=== PATIENT | female | born 1945 | race Caucasian/White ===

== ENCOUNTER → 2017-11-06 09:17 | Outpatient (CLI) | payer MEDICARE, SELFPAY ==
--- NOTE | 2017-11-06 09:17 | DT_ITS ---
This patient was seen during an EMR downtime November 03, 2017 - November 10, 2017. This patient may have a combination of paper and electronic documentation or all paper documentation. All documentation is viewable within the e-chart portion of [facility] for each patient visit.
[2017-11-11 02:49] LABS: Anion Gap 9 (5-15); BUN 13 mg/dL (7-18); BUN/Creat Ratio 12.7 RATIO (10-20); Calcium,Total 9.5 mg/dL (8.5-10.1); Chloride 105 mmol/L (98-107); Creatinine, Serum 1.02 mg/dL (0.55-1.02); EST Glomerular Filtration Rate 56 mL/min (>60); Est Glom Filt Rate - Afr Amer 68 mL/min (>60); Glucose 96 mg/dL (74-106); Magnesium 2.1 mg/dL (1.6-2.6); Sodium Level 141 mmol/L (136-145); Thyroid Stim Hormone (TSH) 2.64 uIU/mL (0.358-3.74); Uric Acid 5.7 mg/dL (2.6-6.0)
[2017-11-11 03:16] LABS: Hematocrit 43.8 % (37-47); Mean Corpuscular Volume 90.7 fL (81-99); Mean Platelet Vol. 9.7 fl (6.2-12.0); POSITIVE COUNT NO; POSITIVE DIFFERENTIAL NO; POSITIVE MORPHOLOGY NO; Platelet Count 300 K/mm3 (150-450); RBC Distribution Width SD 49.1 fl (35.1-43.9); Red Blood Count 4.83 M/mm3 (4.2-5.4); White Blood Count 5.9 K/mm3 (4.4-11.0)
[2017-11-11 03:17] LABS: Absolute Lymphocyte Count 1.87 X10^3/ul (0.83-4.51); Absolute Neutrophil Count 3.3 X10^3/uL (2.0-7.7); Basophil# 0.03 X10^3/uL; Basophil% 0.5 % (0-1); Eosinophil# 0.11 X10^3/uL; Eosinophils% 1.9 % (0-5); Erythrocyte Sedimentation Rate 26 mm/hr (0-30); Lymphocyte # 1.87 X10^3/ul (4.0); Lymphocyte % 31.7 % (19-41); Monocyte# 0.58 X10^3/uL; Monocyte% 9.8 % (0-10); Neutrophil # 3.29 X10^3/uL (2.7-7.7); Neutrophil % 55.9 % (47-70)
[2017-11-11 16:20] LABS: PTHIN 27.1 pg/mL (18.4-80.1); Vitamin D,25 Hydroxy 28.2 ng/mL (29.95-100.01)
== END ==
PROVIDERS: Family Provider Family Medicine; PCP Family Medicine; Visit Provider Family Medicine
DX: M11.269 Other chondrocalcinosis, unspecified knee (principal)
CPT/HCPCS: 36415; 80048; 82306; 83735; 83970; 84443; 84550; 85025; 85652

== ENCOUNTER → 2018-10-28 | Outpatient (CLI) | payer MEDICARE, SELFPAY ==
--- NOTE | 2018-10-28 09:26 | BD_ITS ---
STUDY: DUAL ENERGY X-RAY ABSORPTIOMETRY / DXA REASON FOR EXAM: Female, 73 years old. The patient is postmenopausal. Loss of height. TECHNIQUE: Bone Mineral Density (BMD) measurements of lumbar spine and bilateral hips were obtained. COMPARISON: None. FINDINGS: Lumbar Spine (L1-L4): g/cm2 (1.420) / T-score (1.8) / Z-score (3.6) Findings are suggestive of normal bone density with a low fracture risk. Left Femur Total: g/cm2 (1.131) / T-score (1.0) / Z-score (2.7) Left Femoral Neck: g/cm2 (1.024) / T-score (-0.1) / Z-score (1.8) Right Femur Total: g/cm2 (1.066) / T-score (0.5) / Z-score (2.2) Right Femoral Neck: g/cm2 (0.943) / T-score (-0.7) / Z-score (1.2) BD/Dexa Bone Density Study IMPRESSION: The patient is considered normal as outlined below according to World Eulalio Organization (WHO) criteria with a low fracture risk. Reference Information: The T-score is the number of standard deviations above or below the standard which is normal for young adults at their peak bone mineral density. The World Health Organization (WHO) interprets the T-scores as follows: Above -1 Normal bone density Between -1 and -2.5 Osteopenia Equal to / or below -2.5 Osteoporosis As a practical clinical guideline, osteopenia may be graded as follows: Mild -1 through -1.5 Moderate -1.6 through -2.0 Severe -2.1 through -2.4 The Z-score is the number of standard deviations above or below age-matched controls. A Z-score of less than -1.5 would be considered abnormal. References: 1. NIH Osteoporosis and Related Bone Diseases http://www.osteo.org 2. International Society for Clinical Densitometry http://www.iscd.org 3. National Osteoporosis Foundation http://www.nof.org Electronically Signed: Travis Boyle, at 10:24 EDT , Service support ,
--- NOTE | 2018-10-28 09:26 | BI_ITS ---
MAMMOGRAPHY - BILATERAL SCREENING REASON FOR EXAM: Female, 73 years old. Routine annual screening examination. PERTINENT HISTORY: Non-contributory. TECHNIQUE: Digital bilateral breast torie (3D mammographic acquisition) in the CC and MLO projections. 2-D mediolateral oblique (MLO) and craniocaudad (CC) views of both breasts were obtained. CAD: Full Field Digital Mammography with Computer Added Detection was performed. COMPARISON: Comparison is made with prior study dated June 19, 2017 and January 05, 2016. FINDINGS: Breast Composition: The breasts are almost entirely fatty. There are no dominant masses or suspicious calcifications. Stable small benign-appearing bilateral axillary lymph nodes. No other significant abnormalities are identified. There has been no significant change since the prior study. BI/SCREENING MAMM (CAD), BILAT IMPRESSION: Stable bilateral screening mammogram. Yearly follow-up mammogram recommended. (A) ASSESSMENT CATEGORY: BIRADS Category 2: Benign. A letter regarding these results will be sent to the patient by the facility within 30 days. Approximately 10% of breast cancers are not detected by mammography. A normal mammogram should not delay biopsy of a clinically suspicious abnormality. [id number] Electronically Signed: Travis Boyle, at 12:44 EDT , Service support ,
== END | disposition home or self-care (01) ==
PROVIDERS: Family Provider Family Medicine; PCP Family Medicine; Referring Provider Nurse Practitioner Adult Health; Visit Provider Nurse Practitioner Adult Health
DX: Z78.0 Asymptomatic menopausal state (principal); Z12.31 Encounter for screening mammogram for malignant neoplasm of breast
CPT/HCPCS: 77063; 77067; 77080

== ENCOUNTER → 2018-11-06 | Outpatient (CLI) | payer MEDICARE, SELFPAY ==
[2018-11-06 10:56] LABS: Anion Gap 3 (5-15); BUN 15 mg/dL (7-18); BUN/Creat Ratio 15.2 RATIO (10-20); Calcium,Total 9.2 mg/dL (8.5-10.1); Chloride 107 mmol/L (98-107); Cholesterol 222 mg/dL (200); Creatinine, Serum 0.99 mg/dL (0.55-1.02); EST Glomerular Filtration Rate 58 mL/min (>60); Est Glom Filt Rate - Afr Amer 70 mL/min (>60); Glucose 108 mg/dL (74-106); High Density Lipoprotein 74 mg/dL; Potassium 4.8 mmol/L (3.5-5.1); Sodium Level 139 mmol/L (136-145); Thyroid Stim Hormone (TSH) 1.61 uIU/mL (0.358-3.74); Triglycerides 106 mg/dL; Very Low Density Lipoprotein 21 mg/dL (5-40)
[2018-11-06 11:03] LABS: Vitamin D,25 Hydroxy 73.1 ng/mL (29.95-100.01)
== END | disposition home or self-care (01) ==
LOC: MFPLAB 09:12
PROVIDERS: Nurse Practitioner Adult Health; Family Provider Family Medicine; PCP Family Medicine; Referring Provider Family Medicine; Visit Provider Family Medicine
DX: E03.9 Hypothyroidism, unspecified (principal); E55.9 Vitamin D deficiency, unspecified; Z13.1 Encounter for screening for diabetes mellitus; Z13.220 Encounter for screening for lipoid disorders
CPT/HCPCS: 36415; 80048; 80061; 82306; 84443

== ENCOUNTER → 2019-07-14 | Outpatient (CLI) | payer MEDICARE, SELFPAY ==
--- NOTE | 2019-07-14 12:06 | RAD_ITS ---
STUDY: X-RAY - RIGHT KNEE REASON FOR EXAM: Female, 73 years old. CHRONIC PAIN TECHNIQUE: 4 view(s) of the knee. COMPARISON: None. FINDINGS: Normal visualized distal femur. Normal visualized proximal tibia and fibula. Normal proximal tibiofibular articulation. There is severe degenerative arthrosis of the medial femorotibial compartment with severe joint space narrowing. There is mild degenerative arthrosis of the lateral femorotibial compartment. There is mild degenerative arthrosis of the patellofemoral articulation. Chondrocalcinosis of the lateral meniscus. RAD/Knee 4 or More Views IMPRESSION: Degenerative arthrosis. Chondrocalcinosis of the lateral meniscus. Electronically Signed: Travis Boyle, at 14:02 EST , Service support ,
--- NOTE | 2019-07-14 12:08 | RAD_ITS ---
STUDY: X-RAY - LEFT KNEE REASON FOR EXAM: Female, 73 years old. CHRONIC PAIN. PT UNAWARE OF METALLIC FB EVER ENTERING HER LEG TECHNIQUE: 4 view(s) of the knee. COMPARISON: None. FINDINGS: Normal visualized distal femur. Normal visualized proximal tibia and fibula. Normal proximal tibiofibular articulation. There is severe degenerative arthrosis of the medial femorotibial compartment with severe joint space narrowing. Normal lateral femorotibial compartment. There is mild degenerative arthrosis of the patellofemoral articulation. Chondrocalcinosis of the lateral meniscus. RAD/Knee 4 or More Views IMPRESSION: Degenerative arthrosis. Chondrocalcinosis of the lateral meniscus. Electronically Signed: Travis Boyle, at 14:04 EST , Service support ,
== END | disposition home or self-care (01) ==
LOC: HPRAD 12:05
PROVIDERS: PCP Family Medicine; Referring Provider Family Medicine; Visit Provider Family Medicine
DX: M19.90 Unspecified osteoarthritis, unspecified site (principal)
CPT/HCPCS: 73564

== ENCOUNTER → 2019-11-01 | Outpatient (CLI) | payer MEDICARE, SELFPAY ==
--- NOTE | 2019-11-01 07:04 | BI_ITS ---
MAMMOGRAPHY - BILATERAL SCREENING REASON FOR EXAM: Female, 74 years old. Routine annual screening examination. PERTINENT HISTORY: Non-contributory. TECHNIQUE: Digital bilateral breast jt (3D mammographic acquisition) in the CC and MLO projections. 2-D mediolateral oblique (MLO) and craniocaudad (CC) views of both breasts were obtained. CAD: Full Field Digital Mammography with Computer Added Detection was performed. COMPARISON: Comparison is made with prior examination dated October 28, 2018 and June 19, 2007. FINDINGS: Breast Composition: The breasts are almost entirely fatty. There are no dominant masses or suspicious calcifications. Stable small benign-appearing bilateral axillary lymph nodes. No other significant abnormalities are identified. There has been no significant change since the prior study. BI/SCREEN MAMM (CAD) W/JT BILAT IMPRESSION: Stable bilateral screening mammogram. Yearly follow-up mammogram recommended. (A) ASSESSMENT CATEGORY: BIRADS Category 2: Benign. A letter regarding these results will be sent to the patient by the facility within 30 days. Approximately 10% of breast cancers are not detected by mammography. A normal mammogram should not delay biopsy of a clinically suspicious abnormality. [id number] Electronically Signed: Travis Boyle, at 9:11 EDT , Service support ,
== END | disposition home or self-care (01) ==
LOC: OPBI 07:02
PROVIDERS: PCP Family Medicine; Referring Provider Nurse Practitioner Adult Health; Visit Provider Nurse Practitioner Adult Health
DX: Z12.31 Encounter for screening mammogram for malignant neoplasm of breast (principal)
CPT/HCPCS: 77063; 77067

== ENCOUNTER → 2019-12-10 | Outpatient (CLI) | payer MEDICARE, SELFPAY ==
--- NOTE | 2019-12-10 07:16 | CT_ITS ---
STUDY: CT SCAN LOWER EXTREMITY RIGHT REASON FOR EXAM: Female, 74 years old. RIGHT KNEE VARUS DEFORMITY. [facility] PROTOCOL RADIATION DOSAGE (If Supplied By Facility): CTDIvol = ( 18.76 ) mGy, DLP = ( 1034.82 ) mGycm. Individualized dose optimization techniques were used for this CT.? TECHNIQUE: Multiple axial tomographic images of the right hip, right knee and right ankle were obtained. Coronal and sagittal reconstruction was obtained as well. COMPARISON: Comparison is made with prior radiograph of the right knee dated July 14, 2019. FINDINGS: There is a mild degree of joint space narrowing involving the right hip. There is evidence of calcification/ossification along the superior lateral aspect of the right capsule. This may represent chondrocalcinosis. Degenerative spur is seen along the medial inferior aspect of the medial right femoral head. There is evidence of a virus deformity of the knee joint. There is a marked degree of joint space narrowing of the medial compartment of the knee joint with a degenerative spur formation along the distal medial femoral condyle as well as medial tibial plateau. This also evidence of degenerative spurring of the lateral femoral condyle and lateral tibial plateau. There is evidence of chondrocalcinosis of the lateral meniscus. Mild degree of osteoarthritis of the patellofemoral joint with degenerative spurring along the anterior aspect of the distal femur. Disturbance of an old avulsion fracture of the lateral malleolus. There is a 1.3 cm x 0.7 cm cyst in the lateral malleolus. CT/Extremity Lower without Contra IMPRESSION: Degenerative changes of the right hip joint with findings suggestive of a chondrocalcinosis. Marked degree of joint space narrowing involving the medial compartment of the knee joint with the degenerative spur formation and varies deformity. Chondrocalcinosis of the lateral meniscus. Old avulsion fracture of the lateral malleolus. Electronically Signed: Travis Boyle, at 8:34 EDT , Service support ,
== END | disposition home or self-care (01) ==
PROVIDERS: PCP Family Medicine; Referring Provider Specialist; Visit Provider Specialist
DX: M21.161 Varus deformity, not elsewhere classified, right knee (principal)
CPT/HCPCS: 73700

== ENCOUNTER 2019-12-22 10:55 | Observation (INO) | payer MEDICARE, SELFPAY ==
--- NOTE | 2019-12-08 21:44 | HP.PCM_ITS ---
History and Physical History and Physical Patient Name: Rosario Mejía : 1945 From: KRISTINA BATES PA-C DATE OF SURGERY: 12/22/2019 SCHEDULED PROCEDURE: Right total knee arthroplasty HISTORY OF PRESENT ILLNESS: Preoperative history and physical exam was performed on December 08, 2019. This is a 74-year-old female who has been having ongoing pain for 3 years in bilateral knees. Patient states the right is worse than the left. Pain can reach 9/10 with activities. She has constant pain, aching, soreness. Pain is increased with stairs and walking. Pain is located over the medial joint line and occasionally over the anterior knee at the patella. Patient has difficult time with shopping, leisure activity such as walking, working in her garden, and playing with her grandchildren. She does feel unsafe at times holding the grandchildren or walking for long distances. She has attempted rest, ice, elevation with minimal relief. She has been through physical therapy and home exercises as well as aquatic therapy and yoga with minimal relief. She has attempted and director utilization management brace as well as intensive care specialist. She has used over -the-counter nonsteroidal anti-inflammatory Aleve. Patient has had a previous knee arthroscopy by Dr. Chu Joseph in 2004. She currently denies any chest pain, shortness of breath, or fever or chills. She has history of thyroid disease. We are obtaining surgical clearance from her primary care physician. REVIEW OF SYSTEMS: ROS: Const: Denies anorexia, anxiety, change in appetite, fever and weight change,hard of hearing, and vision problems. CV: Denies chest pain, heart murmur, irregular heartbeat and peripheral vascular disease. Resp: Denies asthma, cough, pneumonia, sleep apnea, shortness of breath, tuberculosis and wheezing. GI: Denies constipation, diarrhea, heartburn, nausea, bloody stools and vomiting, and difficulty swallowing. : .Denies incontinence. Musculo: Reports leg swelling, trouble walking and weakness and limp. Skin: Denies Raynaud's, history of shingles and tattoo. Neuro: Denies ambulatory dysfunction, dizziness, numbness/tingling and tremor. Psych: Denies anxiety, depression, insomnia, mental illness and stress. Manpreet/Lymph: Denies anemia, bleeding/bruising tendency and past transfusion. Reviewed, no changes. PAST MEDICAL HISTORY: Advance Care Plan: Other Directive, LIVING WILL Other Directive, POA PMH: Medical Problems: None Accidents: None Surgical Hx: Tubal Ligation - (1977) Eric Arthroscopy - (2001) Eric/Gesler Anesthesia Complications: None Assistive Devices: Glasses Reviewed, no changes. SOCIAL HISTORY: SH: Marital: .Occupation: Educator Retired.Work Status: Retired - Off work since 2001.Hand Dominance: Right-handed. Personal Habits: Cigarette Use: Never.Smokeless Tobacco: Never Used Smokeless Tobacco.E-Cigarette Use: Never used.Alcohol: Occasionally.Drug Use: Denies Use.Enjoy Exercising: Daily. Reviewed, no changes. VITALS: Ht: 59.5 Wt: 180lb Wt k.648 BMI: 35.7 BP: 148/60 Pulse: 72 Resp: 14 T: 97.5 T: 36.4C ALLERGIES: No Known Drug Allergy MEDICATIONS: Levothyroxine Sodium 50 mcg 1 by mouth every day, Vitamin D2 50,000 ut once A week, Diclofenac Sodium 1 % prn PRE-OP EXAM: General appearance:NORMAL Other: Eyes: Conjunctivae and lids: NORMAL Pupils: ERR Ears, Nose, Mouth, and Throat: NORMAL Other: Inspection of lips, teeth and gums: NORMAL Other: Neck: Examination of neck: no masses noted. Respiratory: Assessment of respiratory effort: NORMAL Other: Auscultation of lungs: clear to auscultation no wheezes, rhonchi or rales. Cardiovascular: Auscultation of heart: regular rate and rhythm, no murmurs, gallops or rubs. Exam of carotid arteries: NORMAL Other: Gastrointestinal: Exam of abdomen: soft, nontender, nondistended bowel sounds present. PHYSICAL EXAMINATION: Patient walks with an antalgic gait. Patient has tenderness to palpation over the medial joint line of the right knee. Moderate effusion bilaterally. Patient has partially correctable varus alignment bilaterally. Range of motion: 0 extension to 110 flexion. 5/5 knee extension strength bilaterally. Firm endpoint with varus and valgus stress test. Sensation intact to light touch. IMAGING STUDIES: Previous x-rays of the right knee reveal varus alignment with medial joint space narrowing, subchondral sclerosis, osteophyte formation consistent with severe stage IV tricompartmental osteoarthritis with bony erosions. Left knee reveals varus alignment with medial joint space narrowing, subchondral sclerosis, osteophyte formation consistent with severe stage IV tricompartmental osteoarthritis with bony erosions. IMPRESSION: 1. Severe right knee tricompartmental osteoarthritis 2. Severe left knee tricompartmental osteoarthritis 3. Thyroid disease PLAN: Dr. Robin Schwartz did discuss and review with the patient all treatment options including surgical versus nonsurgical options. Patient does wish to proceed with the above-stated procedure. Potential risks, benefits, and complications of the procedure were discussed in detail including but not limited to , infection, nerve and blood vessel damage, persistent pain, numbness, tingling, paresthesias, blood clot, pulmonary embolism, and requirement for possible further surgery. The patient expressed full understanding and has no further questions for the doctor. Patient does agree to proceed with the above-stated procedure and has signed the surgery consent form. We discussed the current risks associated with COVID 19. This does include the risk of exposure while in the hospital. Patient was reassured local hospitals have low infection rates and are taking all necessary precautions to avoid exposure to patients. In addition, we discussed strategies that can be used to help limit exposure including those that limit the patient's time in the hospital. Also using strategies to limit the patient's need for continued inpatient services after being discharged from the hospital. Patient was notified that we will need to comply with any screening or testing the hospital wishes to perform or that surgery may be delayed for any positive results. This dictation was created using voice recognition software. Phonetic and/or grammatical errors may exist. ___ I have re-examined the patient. There are no clinical changes since date of exam. ___ See progress notes for changes. ___ Dictated on admission Date: Time: Signature:
--- NOTE | 2019-12-09 07:34 | EKG12_ITS ---
Test Reason : PREOP Blood Pressure : / mmHG Vent. Rate : 071 BPM Atrial Rate : 071 BPM P-R Int : 194 ms QRS Dur : 082 ms QT Int : 404 ms P-R-T Axes : -14 -22 013 degrees QTc Int : 439 ms Normal sinus rhythm Normal ECG Confirmed by PAZ NICHOLS ([id number]), editor map SHADI DAVIS ([id number]) on 12/13/2019 8:29:49 AM Referred By: Robin Schwartz Confirmed By:PAZ NICHOLS
[2019-12-09 07:51] LABS: Absolute Lymphocyte Count 1.82 X10^3/uL (0.83-4.51); Absolute Neutrophil Count 3.7 X10^3/uL (2.0-7.7); Basophil# 0.04 X10^3/uL; Basophil% 0.6 % (0-1); Eosinophil# 0.22 X10^3/uL; Eosinophils% 3.5 % (0-5); Hematocrit 43.6 % (37-47); Hemoglobin 13.6 g/dL (12.0-15.0); Lymphocyte # 1.82 X10^3/ul (4.0); Lymphocyte % 28.6 % (19-41); Mean Corp Hgb Conc 31.2 g/dL (32-36); Mean Corpuscular Hgb 28.5 pg (27.0-32.0); Mean Corpuscular Volume 91.4 fL (81-99); Mean Platelet Vol. 9.3 fl (6.2-12.0); Monocyte# 0.62 X10^3/uL; Monocyte% 9.7 % (0-10); NRBC Flagged by Analyzer 0 % (0-5); Neutrophil # 3.65 X10^3/uL (2.7-7.7); Neutrophil % 57.3 % (47-70); Platelet Count 341 K/mm3 (150-450); RBC Distribution Width CV 14.7 % (11.6-14.6); RBC Distribution Width SD 49.4 fl (35.1-43.9); Red Blood Count 4.77 M/mm3 (4.2-5.4); White Blood Count 6.4 K/mm3 (4.4-11.0)
[2019-12-09 08:14] LABS: Anion Gap 7 (5-15); BUN 20 mg/dL (7-18); Calcium,Total 8.7 mg/dL (8.5-10.1); Chloride 107 mmol/L (98-107); Creatinine, Serum 0.95 mg/dL (0.55-1.02); EST Glomerular Filtration Rate 61 mL/min (>60); Est Glom Filt Rate - Afr Amer 73 mL/min (>60); Glucose 120 mg/dL (74-106); Potassium 4.1 mmol/L (3.5-5.1); Sodium Level 140 mmol/L (136-145)
[2019-12-22] VITALS (12 sets, daily range): BP systolic 96–154; BP diastolic 53–73; PULSE 74–90; RESP 16–18; TEMP 36.1–36.6; O2SAT 93–100; BMI 36.6
[2019-12-22] MEDS: Lactated Ringers 1,000 ML 75 ML IV (07:00)
[2019-12-22] MEDS: Lactated Ringers 1,000 ML 999 ML IV ×2 (07:00→13:01)
[2019-12-22] MEDS: Acetaminophen 500 MG Tablet 1000 MG PO ×3 (09:20→21:14)
[2019-12-22] MEDS: Gabapentin 600 MG Tablet PO (09:20)
[2019-12-22] MEDS: Celecoxib 200 MG Capsule 400 MG PO (09:21)
[2019-12-22 10:20] LABS: Bedside Glucose 91 mg/dL (70-110)
[2019-12-22] MEDS: Cefazolin 2 GM in 0.9% Normal Saline 100 ML IV (10:36)
[2019-12-22] MEDS: dexAMETHasone 10 MG/ML Vial IV (10:48)
--- NOTE | 2019-12-22 12:17 | OP.PCM_ITS ---
Report of Operation Date of Procedure: 12/22/19 Pre-Operative Diagnosis: Right knee primary osteoarthritis Post-Operative Diagnosis: Right knee primary osteoarthritis Surgery/Procedure Performed:: Right knee minimally invasive robotic assisted total knee replacement Description of Surgical Findings:: Stable knee with good patella tracking cutter operator brick: Sydney Correa Type of Anesthesia:: Spinal Anesthesiologist: Familia Anaya Special Medications: 2 g Ancef, 1 g TXA at incision, 1 g TXA closure, 10 mg Decadron, joint cocktail (5 mg Duramorph, 30 mL of 0.5% Ropivicaine, 1000 units of epinephrine, 30 mg of Toradol) Specimen's removed: Bony cuts Estimated Blood Loss (mL): 50 mL Fluids Replaced: 800 mL crystalloid Description of Procedure: Implants used: 1. Cassy size 2 triathlon cruciate retaining distal femoral press-fit component 2. Cassy size 3 press-fit tritanium tibial baseplate 3. [place] X3 12 millimeters CS polyethylene 4. Cassy X3 29 asymmetric patella Brief history operative indications: 74-year-old F with history of right knee osteoarthritis with radiographic findings with loss of joint space, osteophyte formation and subchondral sclerosis. Failed conservative measures as mentioned in the H&P. Discussion of total knee arthroplasty as well as risk and benefits were discussed the patient including but not limited to blood loss, DVTs, PEs, neurovascular damage, general risk of anesthesia including loss of life, and stiffness or instability were discussed with patient. Patient demonstrated understanding and was able to sign informed consent. Procedure: On the date of procedure patient's right lower extremity was marked in the preoperative area. The patient was then taken back to the operating room where the patient was placed on the table in the supine position. All bony prominences were identified a well-padded. Anesthesia assumed control of the C-spine and airway and remained controlled throughout the remainder of the procedure. A tourniquet was placed on the right upper thigh and the leg was prepped in a sterile fashion. The surgeon then scrubbed at this time .Upon reentering the room right lower extremity was draped in a standard orthopedic fashion. A timeout was then called and everyone agreed upon the side, the site, the procedure to be performed, patient's identity and antibiotics given. Esmarch bandage was used to exsanguinate the extremity and the tourniquet was placed up to 250 mmHg with the knee in flexion. A midline skin incision was made and sharp dissection was taken down through skin subcutaneous tissue and fat. The standard medial parapatellar incision was made and the patella was subluxed laterally. An Appropriate deep MCL release was done and the fat pad was resected. Our attention was then directed to the patella. The patella was everted and a flat resection was made. The knee was then flexed up in 2 femoral pins were placed inside the incision and 2 tibial pins were placed outside the incision in the medial tibia bicortically. Once this was completed the 2 checkpoints in the femur and tibia were placed. Knee was then flexed up and the bony landmarks were registered. Once this was completed knee was taken through range of motion and manually st ressed allowing us to a plan for an appropriate tibial cut. The robotic arm was brought into the field sterilely and checkpoint and saw were registered. Based on the patient's deformity the tibial cut was made in 3 degrees of varus. At this time the tensioner was then placed in the joint and ligament tension was checked at 90 degrees and full extension. Based on the patient's ligamentous tension appropriate adjustments were made to the operative plan and ligament releases were done. Once we were happy with our operative plan with balanced flexion and extension gaps our attention was directed to the femur. The robot was brought into the field sterilely and registered. Posterior condylar cuts, anterior chamfer cuts and anterior cuts were appropriately made for a size 2 femur. When these were completed the saws were switched out in the distal femoral and posterior chamfer cuts were made. Protecting the soft tissue throughout this time. A size 3 tibial base plate was selected. the knee was flexed to 90 degrees and the soft tissues and posterior osteophytes were removed from the joint. 40 cc of the periarticular injection was injected into the posterior medial corner of the joint. The appropriate trials were then placed on the femur and tibia. A trial polyethylene was trialed to ensure proper balancing and stability of the knee. The appropriate tibial internal rotation was then marked with a bovie. Our attention was then directed to the patella. The lug holes were drilled and the patella trial was placed. Patellar tracking was checked and deemed appropriate. Once we were happy lug holes were drilled for the femur and trial components were removed. the tibia was subluxed and pinned into place and the keel was punched and drilled appropriately. Final components were verified and opened, and cement was mixed in a vacuum. [employer] Simplex cement was used. The wound was copiously irrigated with normal saline. When the cement was ready the components were impacted into place starting with the tibia, femur and finally cementing the patella. The trial poly component was placed and the knee was placed in full extension. All excess cement was removed in the process. Once the cement had cured the tracking, alignment and balance were verified and a size 12 mm CS polyethylene component was placed. Once the final components were placed an Irrisept lavage was performed and the wound was copiously irrigated with normal saline solution and the periarticular injection was given. The wound was closed in a layer fuentes fashion using #1 vicryl interrupted sutures for the arthrotomy, 2-0 interrupted Vicryl suture for the subcuticular layer and josé antonio for final skin closure. A sterile compressive dressing was then placed. The patient was then awakened from anesthesia, transferred to the [place] and transferred to the PACU for recovery. Post op plan DVT ppx: ASA 81mg BID, thigh high compression stockings Follow up: in office in 2 weeks for wound check PT: to start POD #0 at hospital, outpatient PT should be arranged. Due to the complexity of this case robotic arm was used to assist in the surgery to improve accuracy and clinical outcomes. - Complications No intraoperative complications - Admit VTE Documentation VTE Present on Admission: No VTE Mechan Device Prophylaxis: SCD's, Thigh High DOROTHEA Hose VTE Pharm Prophylaxis ordered?: Yes
--- NOTE | 2019-12-22 13:01 | RAD_ITS ---
STUDY: X-RAY - RIGHT KNEE REASON FOR EXAM: Female, 74 years old. RIGHT KNEE POST OP TECHNIQUE: 2 view(s) of the knee. COMPARISON: None. FINDINGS: Patient is status post right knee replacement surgery. Components demonstrate anatomic alignment. No plain film evidence of postoperative complication. Normal postoperative soft tissue swelling and subcutaneous emphysema. RAD/Knee 1 or 2 Views IMPRESSION: Replaced right knee joint demonstrates anatomic alignment. No plain film evidence of postoperative complication Electronically Signed: Zelalem Rosales MD at 13:22 EDT , Service support ,
[2019-12-22] MEDS: Lactated Ringers 1,000 ML 125 ML IV (13:34)
[2019-12-22] MEDS: oxyCODONE 5 MG Tablet PO ×3 (16:13→21:14)
[2019-12-22] MEDS: Aspirin 81 MG TAB.CHEW PO (17:01)
[2019-12-22] MEDS: Ensure Surgery 237 ML LIQUID PO (17:01)
[2019-12-22] MEDS: Cefazolin 1 GM/50 ML BAG IV (18:03)
[2019-12-22] MEDS: Senna/Docusate Sodium 1 Tablet 2 TABLET PO (21:14)
[2019-12-23 02:42] VITALS: BP 133/62; PULSE 70; RESP 16; TEMP 36.2; O2SAT 97
[2019-12-23] MEDS: Cefazolin 1 GM/50 ML BAG IV (02:58)
[2019-12-23] MEDS: oxyCODONE 5 MG Tablet PO ×3 (02:58→11:03)
[2019-12-23] MEDS: Levothyroxine 50 MCG Tablet PO (06:26)
[2019-12-23] MEDS: Acetaminophen 500 MG Tablet 1000 MG PO ×2 (06:26→13:35)
[2019-12-23] MEDS: 0.9% NaCl Peripheral Flush Adult/Peds IV (06:27)
[2019-12-23 07:13] LABS: Hematocrit 37.7 % (37-47); Hemoglobin 11.9 g/dL (12.0-15.0); Mean Corp Hgb Conc 31.6 g/dL (32-36); Mean Corpuscular Hgb 29.5 pg (27.0-32.0); Mean Corpuscular Volume 93.3 fL (81-99); Platelet Count 214 K/mm3 (150-450); RBC Distribution Width CV 14.9 % (11.6-14.6); Red Blood Count 4.04 M/mm3 (4.2-5.4)
[2019-12-23 07:34] LABS: Anion Gap 5 (5-15); BUN 18 mg/dL (7-18); BUN/Creat Ratio 18.4 RATIO (10-20); Calcium,Total 8.8 mg/dL (8.5-10.1); Chloride 105 mmol/L (98-107); Creatinine, Serum 0.98 mg/dL (0.55-1.02); EST Glomerular Filtration Rate 59 mL/min (>60); Est Glom Filt Rate - Afr Amer 71 mL/min (>60); Estimated Creatinine Clearance 63.45 ml/min; Glucose 122 mg/dL (74-106); Potassium 4.6 mmol/L (3.5-5.1); Sodium Level 135 mmol/L (136-145)
[2019-12-23] MEDS: Ensure Surgery 237 ML LIQUID PO (07:48)
[2019-12-23] MEDS: Senna/Docusate Sodium 1 Tablet 2 TABLET PO (07:48)
[2019-12-23] MEDS: Aspirin 81 MG TAB.CHEW PO (07:48)
[2019-12-23] MEDS: Famotidine 20 MG Tablet PO (07:48)
[2019-12-23 07:50] VITALS: BP 128/51; PULSE 64; RESP 16; TEMP 37; O2SAT 98
--- NOTE | 2019-12-23 08:42 | PN.ORTHO_ITS ---
Subjective: The patient was sitting in bedside chair eating breakfast upon examination. Patient denies any chest pain, shortness of breath, dizziness, lightheadedness, nausea or vomiting, or calf pain. Pain is controlled on medications. No adverse overnight events. Patient seems anxious about beginning physical therapy secondary to pain in the knee. Her pain is been controlled on current medications. Objective: Vital signs stable and afebrile. Patient is able to plantarflex and dorsiflex actively. Sensation is intact to light touch to saphenous, sural, superficial and deep peroneal, and tibial distribution. Dressing is clean dry and intact. Negative Homans bilaterally, negative signs and symptoms of DVT. - Physical Exam Vitals/I&O's: Vital Signs Temp Pulse Resp BP Pulse Ox 98.6 F 64 16 128/51 H 98 12/23/19 07:50 12/23/19 07:50 12/23/19 07:50 12/23/19 07:50 12/23/19 07:50 Oxygen Flow Rate (L/min) 2 Oxygen Delivery Method Room Air Weight: 82.3 kg Body Mass Index (BMI) 36.6 Intake and Output for Last 24 Hours 12/21/19 12/22/19 12/23/19 23:59 23:59 23:59 Intake Total 4703.75 / 5003.75 681.25 / 681.25 Balance 4703.75 / 5003.75 681.25 / 681.25 General: Alert, Oriented x3, Cooperative, No apparent distress Laboratory Results 12/22/19 09:07: POC Glucose 91 12/23/19 06:15: WBC Cancelled, Corrected WBC Cancelled, RBC Cancelled, Hgb Cancelled, Hct Cancelled, MCV Cancelled, MCH Cancelled, MCHC Cancelled, RDW Std Deviation Cancelled, RDW Coeff of Eros Cancelled, Plt Count Cancelled, MPV Cancelled, Diff Path Review Cancelled 12/23/19 06:15: Sodium 135 L, Potassium 4.6, Chloride 105, Carbon Dioxide 25.0, Anion Gap 5, BUN 18, Creatinine 0.98, Estim Creat Clear Calc 63.45, Est GFR (MDRD) Af Amer 71, Est GFR (MDRD) Non-Af 59 L, BUN/Creatinine Ratio 18.4, Glucose 122 H, Calcium 8.8 12/23/19 07:00: WBC 17.0 H, RBC 4.04 L, Hgb 11.9 L, Hct 37.7, MCV 93.3, MCH 29.5, MCHC 31.6 L, RDW Std Deviation 51.0 H, RDW Coeff of Eros 14.9 H, Plt Count 214, MPV 10.0 Current Medications Acetaminophen (Tylenol) 1,000 mg PO Q8 [facility] Last Admin: 12/23/19 06:26 Dose: 1,000 mg Documented by: Aspirin (Aspirin, Baby) 81 mg PO BIDCM [facility] Last Admin: 12/23/19 07:48 Dose: 81 mg Documented by: Enteral Nutritional Formula (Ensure Surgery) 237 ml PO TIDCM [facility] Last Admin: 12/23/19 07:48 Dose: 237 ml Documented by: Famotidine (Pepcid) 20 mg PO DAILY [facility] Last Admin: 12/23/19 07:48 Dose: 20 mg Documented by: Sodium Chloride () 250 mls @ 15 mls/hr IV .[id number] PRN PRN Reason: Saline Flush Insulin Human Lispro (Humalog Kwikpen (Bk)) 1 - 6 unit SC Q4H PRN PRN; Protocol PRN Reason: BG>/= 180, SEE PROTOCOL Ketorolac Tromethamine (Toradol (Bkc)) 15 mg IV Q6H PRN PRN PRN Reason: Pain Score 1-5/10 Stop: 12/24/19 07:09 Levothyroxine Sodium (Synthroid) 50 mcg PO DAILY@0600 [facility] Last Admin: 12/23/19 06:26 Dose: 50 mcg Documented by: Meloxicam (Mobic) 7.5 mg PO BID [facility] Morphine Sulfate () 2 - 4 mg IV Q2H PRN PRN PRN Reason: Pain Score 6-10/10 Ondansetron HCl (Zofran) 4 mg IV Q8H PRN PRN PRN Reason: NAUSEA Oxycodone HCl (Oxyir) 5 - 10 mg PO Q4H PRN PRN PRN Reason: Pain Score 4-10/10 Last Admin: 12/23/19 06:59 Dose: 10 mg Documented by: Promethazine HCl (Phenergan) 12.5 mg IM Q6H PRN PRN; Protocol PRN Reason: NAUSEA/VOMITING Senna/Docusate Sodium (Senokot-S, Sonal-Colace) 2 tablet PO BID [facility] Last Admin: 12/23/19 07:48 Dose: 2 tablet Documented by: Sodium Chloride () 5 - 15 ml IV UD PRN PRN Reason: SALINE FLUSH Last Admin: 12/23/19 06:27 Dose: 10 ml Documented by: Sodium Chloride () 10 - 40 ml IV UD PRN PRN Reason: SALINE FLUSH Medical Necessity - Tobacco Use Smoking Status: Never smoker Tobacco Use: Non-smoker Assessment/Plan 1. S/P right total knee arthroplasty POD #1 2. Continue Pain Medications: Tylenol, meloxicam, and OxyIR 3. DVT Prophylaxis: Take 81 mg aspirin twice daily for 4 weeks postoperatively for DVT prophylaxis 4. PT/OT: Weightbearing as tolerated 5. H & H: 11.9/37.7, asymptomatic. Secondary to acute blood loss from surgery 6. Encouraged Incentive Spirometry 7. Disposition: Orthopedically stable, plan will be for discharge home today as long as pain is controlled and patient is medically stable. She will get formal physical therapy today. She does have outpatient physical therapy established. Prescriptions will be E scribed to [facility] pharmacy. Patient will follow-up per postop instructions. Patient also asked about CBD oil/salve that her daughter from [place] has recommended. Patient was instructed that she has not to put anything directly on the incision. If she has any skin irritation she should stop this immediately. I have reviewed the [place] Automated Rx Reporting System (OARRS) report for this patient for refill pattern and other prescriber involvement as part of the appropriate surveillance for the provision of acute and chronic controlled medications. The report was requested and reviewed on the date of this entry and was considered in the prescribing process.
--- NOTE | 2019-12-23 08:50 | PCM.DC.TKR ---
Discharge Diet: No Restrictions Discharge Activity: May Not Drive May shower in (days): 1 - Turn dressing away from water. Dressing must be intact to skin Ice area for (Minutes): 20 - every hour while awake. Weight Bearing Status: Weight bearing as tolerated Elevate: Operative Extremity Additional Activity Instructions:: Wear elastic stockings for 2 weeks after your surgery. Call your doctor if your incision/area has: Continuous Slow Oozing, Sudden Increased Bleeding, Increased Pain/ Swelling, Increased Redness, Foul Smelling Discharge Call your doctor if you observe: Fever of 101 or Higher, Coldness, Increased Pain, Numbness or Tingling, Change in Color, Calf discomfort, Uncontrolled pain Remove Dressing in (days):: 4 - Okay to remove dressing on December 27, 2019 Additional Instructions: Follow orthopedic postop instructions If using CBD oil/salve, patient must avoid directly over the incisions. If there is any skin irritation must stop immediately. Allergies/Adverse Reactions: Allergies No Known Allergies Allergy (Verified 12/22/19 08:49) Medications to take at Discharge Ergocalciferol (Vitamin D2) [Vitamin D2] 1,250 mcg PO WE 12/09/19 Levothyroxine [Synthroid] 50 mcg PO DAILY 12/09/19 Acetaminophen [Tylenol] 1,000 mg PO Q8 #100 tab 12/23/19 Aspirin [Aspirin, Baby] 81 mg PO BIDCM #60 tab 12/23/19 Famotidine [Pepcid] 20 mg PO DAILY #30 tab 12/23/19 Meloxicam [Mobic] 7.5 mg PO BID #60 tab 12/23/19 Oxycodone [Oxyir] 5 - 10 mg PO Q4H PRN PRN 5 Days #60 tablet 12/23/19 Senna/Docusate Sodium [Senokot-S] 2 tab PO BID #10 tab 12/23/19 The following prescriptions were given: Aspirin [Aspirin, Baby] 81 mg PO BIDCM #60 tab Transmission Status: Pending to [facility] Meloxicam [Mobic] 7.5 mg PO BID #60 tab Transmission Status: Pending to [facility] Oxycodone [Oxyir] 5 - 10 mg PO Q4H PRN PRN 5 Days #60 tablet PRN Reason: Pain Score 4-10/10 Transmission Status: Sent to [facility] Famotidine [Pepcid] 20 mg PO DAILY #30 tab Transmission Status: Pending to [facility] Senna/Docusate Sodium [Senokot-S] 2 tab PO BID #10 tab Transmission Status: Pending to [facility] Acetaminophen [Tylenol] 1,000 mg PO Q8 #100 tab Transmission Status: Pending to [facility] Primary Care Physician: Vamsi Marrero MD [Primary Care Provider] - Test Results: Test results from this visit will be discussed in further detail at your follow-up appointment, if applicable. Please Follow Up With: [facility] When: 12/27/19 @ 8:00 am with Vitor Please Follow Up With: Guerrero Brown PA-C When: 01/05/20 @ 8:30 am
--- NOTE | 2019-12-23 10:50 | CASEMGMT ---
EDITH REDD Face to Face with patient for initial transition planning/care coordination assessment. RN CM introduced self and role at [facility]. Patient lying in bed, alert and oriented. Patient willing to participate in assessment and is able to answer all questions appropriately. Care providers, pharmacy, and demographics verified. Patient wishes to discharge home and is setup with [facility] for outpatient therapy. Patient states she has no further needs or concerns at this time. CM to follow for discharge planning needs that may arise. PCP: Harvinder Specialists: kvng Schwartz Pharmacy: [facility] Insurance: [employer] [facility] Prescription Benefit: yes Living Will/HPOA: yes, Hemal Mejía LNOK: Living Arrangements: Patient lives with in a 2 story home with bed and bath on first floor. Patient states she was independent at home prior to surgery Transportation: DME/HHC: Patient states she has cane, walker, shower chair, grab bars at home. Patient is setup with [facility] for outpatient therapy starting Friday. Disposition Plan: Patient to discharge home with outpatient therapy, family support, and follow-up plans in place. Kathy LAGUERRE, RN, CM
--- NOTE | 2019-12-23 11:40 | PHA.DC.MC ---
Pharmacy Service has performed discharge medication reconciliation and counseling for this patient. The patient was counseled on the following discharge medications and changes in medications for homegoing were reviewed. Acetaminophen [Tylenol] 1,000 mg PO Q8 #100 tab 12/23/19 Aspirin [Aspirin, Baby] 81 mg PO BIDCM #60 tab 12/23/19 Famotidine [Pepcid] 20 mg PO DAILY #30 tab 12/23/19 Meloxicam [Mobic] 7.5 mg PO BID #60 tab 12/23/19 Oxycodone [Oxyir] 5 - 10 mg PO Q4H PRN PRN 5 Days #60 tab 12/23/19 Senna/Docusate Sodium [Senokot-S] 2 tab PO BID #10 tab 12/23/19 The Reason for Use, instructions for use, and potential side effects were reviewed for all new medications. The patient's questions regarding all of their medications were answered. The patient / was able to verbally demonstrate an understanding of their discharge medications. Home Medications Ergocalciferol (Vitamin D2) [Vitamin D2] 1,250 mcg PO WE 12/09/19 Levothyroxine [Synthroid] 50 mcg PO DAILY 12/09/19 Acetaminophen [Tylenol] 1,000 mg PO Q8 #100 tab 12/23/19 Aspirin [Aspirin, Baby] 81 mg PO BIDCM #60 tab 12/23/19 Famotidine [Pepcid] 20 mg PO DAILY #30 tab 12/23/19 Meloxicam [Mobic] 7.5 mg PO BID #60 tab 12/23/19 Oxycodone [Oxyir] 5 - 10 mg PO Q4H PRN PRN 5 Days #60 tab 12/23/19 Senna/Docusate Sodium [Senokot-S] 2 tab PO BID #10 tab 12/23/19 The patient's discharge medication list was reviewed for discrepancies and discrepancies were resolved.
[2019-12-23 13:50] VITALS: BP 129/48; PULSE 67; RESP 16; TEMP 36.6; O2SAT 99
== END 2019-12-23 14:25 | disposition home or self-care (01) ==
LOC: MS3 11:17 → SDC 11:18 → MS3 11:18
PROVIDERS: Anesthesiology; Physician Assistant Surgical; Admitting Provider Specialist; PCP Family Medicine; Referring Provider Specialist; Visit Provider Specialist
PROC: 0SRC0JZ Replacement of Right Knee Joint with Synthetic Substitute, Open Approach (ICD-10-PCS; CPT 27447; principal; 2019-12-22 10:00)
DX: M17.0 Bilateral primary osteoarthritis of knee (principal); E07.9 Disorder of thyroid, unspecified; Z79.899 Other long term (current) drug therapy; K21.9 Gastro-esophageal reflux disease without esophagitis
CPT/HCPCS: 01400; 27447; 64447; S2900; 36415; 73560; 80048; 82962; 84443; 85025; 85027; 87081; 87635; 93005; 96361; 96365; 96366; 97110; 97116; 97162; 97166; 97530; 99218; 99251; C1776; C9803; G2023; J7120; A4216; G0378; G0379; G0463; J2405; U0003

== ENCOUNTER → 2020-10-18 09:01 | Outpatient (CLI) | payer MEDICARE, SELFPAY ==
[2019-12-22 09:10] VITALS: BMI 36.6
[2020-10-18 11:12] LABS: Anion Gap 7 (5-15); BUN 18 mg/dL (7-18); BUN/Creat Ratio 17.1 RATIO (10-20); Calcium,Total 9.3 mg/dL (8.5-10.1); Chloride 106 mmol/L (98-107); Creatinine, Serum 1.05 mg/dL (0.55-1.02); EST Glomerular Filtration Rate 54 mL/min (>60); Est Glom Filt Rate - Afr Amer 65 mL/min (>60); Glucose 108 mg/dL (74-106); Potassium 3.8 mmol/L (3.5-5.1); Sodium Level 139 mmol/L (136-145); Thyroid Stim Hormone (TSH) 1.28 uIU/mL (0.358-3.74)
== END ==
PROVIDERS: PCP Family Medicine; Referring Provider Family Medicine; Visit Provider Family Medicine
DX: E03.9 Hypothyroidism, unspecified (principal); E66.9 Obesity, unspecified
CPT/HCPCS: 36415; 80048; 84443

== ENCOUNTER → 2021-04-17 08:16 | Outpatient (CLI) | payer MEDICARE, SELFPAY ==
[2021-04-17 13:03] LABS: Albumin, Serum 3.7 g/dL (3.2-5.0); BUN 18 mg/dL (7-18); BUN/Creat Ratio 17.6 RATIO (10-20); Calcium,Total 9.3 mg/dL (8.5-10.1); Chloride 105 mmol/L (98-107); Cholesterol 199 mg/dL (200); Creatinine, Serum 1.02 mg/dL (0.55-1.02); EST Glomerular Filtration Rate 56 mL/min (>60); Est Glom Filt Rate - Afr Amer 68 mL/min (>60); Glucose 102 mg/dL (74-106); High Density Lipoprotein 80 mg/dL; Phosphorus 3.2 mg/dL (2.5-4.9); Potassium 4.1 mmol/L (3.5-5.1); Sodium Level 138 mmol/L (136-145); Triglycerides 88 mg/dL; Very Low Density Lipoprotein 18 mg/dL (5-40)
== END ==
PROVIDERS: PCP Family Medicine; Referring Provider Family Medicine; Visit Provider Family Medicine
DX: E66.9 Obesity, unspecified (principal)
CPT/HCPCS: 36415; 80061; 80069

== ENCOUNTER → 2021-05-22 15:26 | Outpatient (CLI) | payer MEDICARE, SELFPAY ==
--- NOTE | 2021-05-22 15:29 | BI_ITS ---
MAMMOGRAPHY - BILATERAL SCREENING REASON FOR EXAM: Female, 75 years old. Routine annual screening examination. PERTINENT HISTORY: Non-contributory. TECHNIQUE: Digital bilateral breast jt (3D mammographic acquisition) in the CC and MLO projections. 2-D mediolateral oblique (MLO) and craniocaudad (CC) views of both breasts were obtained. CAD: Full Field Digital Mammography with Computer Added Detection was performed. COMPARISON: Comparison is made with prior study dated 11/01/2019 and 10/28/2018. FINDINGS: Breast Composition: The breasts are almost entirely fatty. There are no dominant masses or suspicious calcifications. Stable small benign-appearing bilateral axillary lymph nodes. No other significant abnormalities are identified. There has been no significant change since the prior study. BI/SCRN MAMM (CAD)W/JT BILAT IMPRESSION: Stable bilateral screening mammogram. Yearly follow-up mammogram recommended. (A) ASSESSMENT CATEGORY: BIRADS Category 2: Benign. A letter regarding these results will be sent to the patient by the facility within 30 days. Approximately 10% of breast cancers are not detected by mammography. A normal mammogram should not delay biopsy of a clinically suspicious abnormality. [id number] Electronically Signed: Travis Boyle MD at 8:01 EST , Service support ,
--- NOTE | 2021-05-22 15:30 | BD_ITS ---
STUDY: DUAL ENERGY X-RAY ABSORPTIOMETRY / DXA REASON FOR EXAM: Female, 75 years old. [id number]. Patient is postmenopausal. TECHNIQUE: Bone Mineral Density (BMD) measurements of lumbar spine and bilateral hips were obtained. COMPARISON: Comparison is made with prior study dated 10/28/2018. FINDINGS: Lumbar Spine (L1-L4): g/cm2 (1.044) / T-score (0.2) / Z-score (2.7) Findings are suggestive of normal bone density with a low fracture risk. Left Femur Total: g/cm2 (1.034) / T-score (0.8) / Z-score (2.7) Left Femoral Neck: g/cm2 (0.833) / T-score (-0.1) / Z-score (2.1) Right Femur Total: g/cm2 (0.994) / T-score (0.4) / Z-score (2.4) Right Femoral Neck: g/cm2 (0.783) / T-score (-0.6) / Z-score (1.6) The T-Scores on the most recent prior examination were: Lumbar Spine (L1-L4): There has been worsening of bone density since the previous examination. Left Femur Total: which represents a worsening of 2.6%. Right Femur Total: which represents a worsening of 0.3%. BD/Dexa Bone Density Study IMPRESSION: The patient is considered normal as outlined below according to World Eulalio Organization (WHO) criteria with a low fracture risk. There has been worsening of bone density since the previous examination. Reference Information: The T-score is the number of standard deviations above or below the standard which is normal for young adults at their peak bone mineral density. The World Health Organization (WHO) interprets the T-scores as follows: Above -1 Normal bone density Between -1 and -2.5 Osteopenia Equal to / or below -2.5 Osteoporosis As a practical clinical guideline, osteopenia may be graded as follows: Mild -1 through -1.5 Moderate -1.6 through -2.0 Severe -2.1 through -2.4 The Z-score is the number of standard deviations above or below age-matched controls. A Z-score of less than -1.5 would be considered abnormal. References: 1. NIH Osteoporosis and Related Bone Diseases www osteo.org 2. International Society for Clinical Densitometry www iscd.org 3. National Osteoporosis Foundation www nof.org Electronically Signed: Travis Boyle MD at 15:13 EST , Service support ,
== END ==
PROVIDERS: PCP Family Medicine; Referring Provider Family Medicine; Visit Provider Family Medicine
DX: Z12.31 Encounter for screening mammogram for malignant neoplasm of breast (principal); Z78.0 Asymptomatic menopausal state
CPT/HCPCS: 77063; 77067; 77080

== ENCOUNTER → 2021-10-23 | Outpatient (CLI) | payer MEDICARE, SELFPAY ==
[2021-10-23 10:37] LABS: Hemoglobin A1c 6.2 % (3.8-5.6)
[2021-10-23 10:47] LABS: Microalbumin,Random Urine 9.6 mg/L (NO RANGE EST.); Microalbumin:Creatinine Ratio 10.3 mg/g CRE (<30 mg/g CRE)
[2021-10-23 11:00] LABS: ALB/GLOB Ratio 0.9 RATIO (0.9-2.4); AST(SGOT) 20 U/L (15-37); Alanine Aminotransfer ALT/SGPT 22 U/L (13-56); Albumin, Serum 3.6 g/dL (3.2-5.0); Alkaline Phosphatase 50 U/L (45-117); Anion Gap 8 (5-15); BUN 16 mg/dL (7-18); BUN/Creat Ratio 15.8 RATIO (10-20); Chloride 108 mmol/L (98-107); Cholesterol 214 mg/dL (200); Creatinine, Serum 1.01 mg/dL (0.55-1.02); EST Glomerular Filtration Rate 56 mL/min (>60); Est Glom Filt Rate - Afr Amer 68 mL/min (>60); Globulin 4.2 g/dL (2.2-4.2); Glucose 98 mg/dL (74-106); High Density Lipoprotein 79 mg/dL; Potassium 4.2 mmol/L (3.5-5.1); Protein, Total 7.8 g/dL (6.4-8.2); Sodium Level 137 mmol/L (136-145); Thyroid Stim Hormone (TSH) 1.73 uIU/mL (0.358-3.74); Triglycerides 90 mg/dL; Very Low Density Lipoprotein 18 mg/dL (5-40)
== END | disposition home or self-care (01) ==
LOC: MFPLAB 08:05
PROVIDERS: PCP Family Medicine; Referring Provider Family Medicine; Visit Provider Family Medicine
DX: E66.9 Obesity, unspecified (principal); I10 Essential (primary) hypertension; E03.9 Hypothyroidism, unspecified
CPT/HCPCS: 36415; 80053; 80061; 82043; 82570; 83036; 84443

== ENCOUNTER → 2022-07-02 | Outpatient (CLI) | payer MEDICARE, SELFPAY ==
[2022-07-02 17:11] LABS: Absolute Lymphocyte Count 2.33 X10^3/uL (0.83-4.51); Absolute Neutrophil Count 4.5 X10^3/uL (2.0-7.7); Basophil# 0.05 X10^3/uL; Basophil% 0.6 % (0-1); Eosinophil# 0.06 X10^3/uL; Eosinophils% 0.8 % (0-5); Hematocrit 45.1 % (37-47); Hemoglobin 13.9 g/dL (12.0-15.0); Lymphocyte # 2.33 X10^3/ul (0.83-4.51); Lymphocyte % 29.9 % (19-41); Mean Corp Hgb Conc 30.8 g/dL (32-36); Mean Corpuscular Hgb 28.4 pg (27.0-32.0); Mean Corpuscular Volume 92.2 fL (81-99); Mean Platelet Vol. 9.3 fl (6.2-12.0); Monocyte# 0.82 X10^3/uL; Monocyte% 10.5 % (0-10); NRBC Flagged by Analyzer 0 % (0-5); Neutrophil # 4.51 X10^3/uL (2.7-7.7); Neutrophil % 57.9 % (47-70); Platelet Count 290 K/mm3 (150-450); RBC Distribution Width CV 14.4 % (11.6-14.6); RBC Distribution Width SD 48.8 fl (35.1-43.9); Red Blood Count 4.89 M/mm3 (4.2-5.4); White Blood Count 7.8 K/mm3 (4.4-11.0)
== END | disposition home or self-care (01) ==
PROVIDERS: PCP Family Medicine; Visit Provider Physician Assistant
DX: Z01.812 Encounter for preprocedural laboratory examination (principal); R19.5 Other fecal abnormalities
CPT/HCPCS: 36415; 85025

== ENCOUNTER 2022-07-05 08:58 | Day surgery (SDC) | payer MEDICARE, SELFPAY ==
[2022-07-05] VITALS (7 sets, daily range): BP systolic 109–157; BP diastolic 57–66; PULSE 59–69; RESP 14–18; TEMP 36–36.6; O2SAT 96–97; BMI 34.4
--- NOTE | 2022-07-05 09:12 | PCM.HP.BLA ---
History and Physical Date of Admission: 07/05/22 Visit Reasons:?POSITIVE COLOGUARD Chief Complaint: Positive cologuard Political Geographer Required: No Accompanied by: Is patient in pain?: No Allergies No Known Allergies Allergy (Verified 07/02/22 16:14) Medications ergocalciferol (vitamin D2) 1,250 mcg (50,000 unit) capsule 1,250 mcg PO WE supplement 12/09/19 [History Confirmed 07/02/22] levothyroxine 50 mcg tablet 50 mcg PO DAILY thyroid 12/09/19 [History Confirmed 07/02/22] PFSH Medical History?(Updated 07/02/22 @ 16:40 by Nancy Friday) Positive colorectal cancer screening using Cologuard test Surgical History?(Updated 07/02/22 @ 16:10 by Maxine De Jesus) History of bilateral cataract extraction History of left knee surgery Family History?(Updated 07/02/22 @ 16:12 by Maxine De Jesus) Mother Cancer Diabetes Heart disease Kidney diseaseFather Diabetes Heart disease CVA (cerebral vascular accident)Brother Diabetes Social History?(Updated 07/02/22 @ 16:12 by Maxine De Jesus) Smoking Status:? Never smoker alcohol intake:? never substance use type:? does not use HPI HPI HPI: 76-year-old female is being referred by Dr. Vamsi Marrero for surgical consultation regarding a positive Cologuard result.? This was obtained on June 13, 2022.? A written copy of my surgical consult recommendations will return to him.? Patient had a Cologuard test several years back that was negative.? She just had a recent Cologuard test was positive.? She has never had a colonoscopy.? Several months back she had some what was she thought was hemorrhoidal bleeding.? She is not on any anticoagulant.? No history of peptic ulcer disease. Patient evaluated in conjunction with Dr. Peñaloza. Patient presents due to a positive Cologuard. She notes normal bowel habits. She denies any recent bright red blood per rectum, melena, abdominal pain, change in bowel habits. She denies GERD, heartburn. Patient notes for approximately 3 weeks, last December, she had a bout of constipation which caused bright red bleeding per rectum. she notes this has since stopped. She denies any family history of inflammatory bowel disease or colon cancer. She denies any unintentional weight loss. She notes she recently had a knee replacement in April 2022. She notes her PCP's father was recently diagnosed with colon cancer. She notes her eye doctor also had recommended the patient obtain a colonoscopy. Patient has never previously had a colonoscopy or an upper scope. ROS General General: No weight change, appetite, fatigue, colon cancer, breast cancer or weakness HEENT HEENT: Yes eye surgery; No difficulty swallowing, eye injury, swollen glands or hoarseness Endo Endocrine: Yes thyroid disease; No diabetes mellitus, thyroid cancer, Hair loss, heat intolerance or cold intolerance Skin Skin: No rash or changing moles Breast Breast: No left breast lump, right breast lump, nipple discharge, breast pain, abnormal mammogram, abnormal US or breast enlargement Musc Musculoskeletal: No back problems, arthritis, rheumatoid arthritis, gout or joint pain Cardio Cardiovascular: No murmur, pacemaker, heart disease, atrial fibrillation, high blood pressure, heart attack, heart stent, palpitations, shortness of breat with exertion or chest pain Psych Psychiatric: No depression, anxiety or hearing voices Resp Respiratory: No shortness of breath, No sleep apnea, No cough, No COPD, No asthma, No emphysema and No wheezing Gastro Gastrointestinal: No abdominal pain, No nausea or vomiting, No diarrhea, No constipation, No blood in stool, No acid reflux, No hemorrhoids, No ulcers, No gallbladder problem and No black,tarry stools Manpreet Hematologic: No blood thinners, No blood disorders, No bleeding, No anemia and No blood clots Neuro Neurologic: No system reviewed and no additional complaints, except as documented, No as per HPI, No abnormal gait, No abnormal hearing, No abnormal movements, No abnormal speech, No behavioral changes, No burning sensations, No confusion, No convulsions, No disequilibrium, No dizziness, No localized weakness, No frequent falls, No headache(s), No lack of coordination, No loss of vision, No memory loss, No numbness, No other visual disturbances, No radicular pain, No restless legs, No sensory deficit, No syncope, No tingling, No tremor(s), No weakness and No other Exam Const General: cooperative, comfortable and no acute distress [facility] Head: normal to inspection Eyes General: appearance normal, both eyes and all related structures Neck Neck: normal visual inspection Neck mass: No Resp Effort & Inspection: normal respiratory effort Auscultation: clear to auscultation bilaterally Cardio Rate: regular rate Rhythm: regular rhythm GI Inspection: normal to inspection Palpation: soft and no hepatosplenomegaly Auscultation: normal bowel sounds Skin General: no rashes or lesions noted Neuro General: patient alert, patient awake and patient oriented x3 Extrem General: no calf tenderness Psych Appearance: grossly normal Assessment and Plan Assessment and Plan (1) Positive colorectal cancer screening using Cologuard test: ?Status:?Acute ?Plan: Patient with a positive Cologuard.? Site indeterminate.? I recommended the patient a topical gastroduodenoscopy with possible biopsy and colonoscopy possible biopsy or polypectomy as indicated.? She is aware of technique, benefit, risk and alternatives.? She has had an opportunity ask and have questions answered.? We will schedule and proceed as noted. Copy: Dr. Vamsi Peñaloza M.D., F.A.C.S. Dr. Peñaloza will plan to perform an EGD and colonoscopy with possible biopsies. Procedure details, risks and benefits have been explained to the patient and her . Patient and her have had the opportunity to ask and have questions answered. Patient is not currently on any blood thinners. I have examined the patient and the H&P has been reviewed. There are no clinical changes since date of exam. Sandip Peñaloza M.D., F.A.C.S.
[2022-07-05] MEDS: Lactated Ringers 1,000 ML 15 ML IV (09:15)
--- NOTE | 2022-07-05 10:00 | IMM_PTH ---
PATIENT: TOÑO SALAS LOC: EN U#:[id number] AGE/SX: 76/F ROOM: RE07/05/[address]: Dr. Sandip Peñaloza MD : 1945 BED: DIS: 07/05/2022 SPEC #: [id number] RECD: 07/05/22 13:42 STATUS: JAMAAL RELuis #: [id number] JOI: 07/05/22 10:[address]: Sandip Peñaloza DEPT: IMMUNOHISTOCHEMISTRY RECD BY: Jazmyne Glass ENTERED: 07/05/22 13:42 SP TYPE: IMMUNO OTHR DR: Dr. Vamsi Marrero MD Tissues: B - Stomach, NOS C - Esophagus, NOS Procedures: H Pylori (initial) P53 (initial) KI-67 (add) PHYSICIAN & INSTITUTION [place] [id number] SPECIMEN INFORMATION: Tissue Source: B ? Antrum biopsy, C ? Distal esophagus Clinical Info: Positive Cologuard test Specimen Number: [id number] B & C CPT code: 56749 x2, 57557 METHODOLOGY: Deparaffinized sections of prefer/formalin-fixed tissue or PAP/DQ stained slides are incubated with monoclonal/polyclonal antibodies/oligonucleotide probes. Localization is made via biotin free immunoperoxidase method. Appropriate controls are performed and reacted as expected. Results on target cell population are indicated in the following table: RESULTS: ANTIBODY / CLONE RESULT Block B H Pylori (polyclonal) negative Block C P53 (DO-7) negative Ki-67 (30-9) positive, very low These tests were developed and their performance characteristics determined by [facility]. They may not have been cleared or approved by the U.S. Food and Drug Administration. The FDA has determined that such clearance or approval is not necessary. The above immunohistochemical/dualISH markers are ordered and reviewed by the Pathologist. INTERPRETATION: B. Antrum, biopsy: Negative for Helicobacter pylori organisms. C. Distal esophagus, biopsy: Negative for dysplasia. SJ:luz 07/10/2022
--- NOTE | 2022-07-05 10:00 | COLBX_PTH ---
PATIENT: TOÑO SALAS LOC: EN U#:[id number] AGE/SX: 76/F ROOM: RE07/05/[address]: Dr. Sandip Peñaloza MD : 1945 BED: DIS: 07/05/2022 SPEC #: [id number] RECD: 07/05/22 10:57 STATUS: JAMAAL RENY #: [id number] JOI: 07/05/22 10:[address]: Sandip Peñaloza DEPT: SURGICAL PATHOLOGY RECD BY: Galileo Isidro ENTERED: 07/05/22 13:25 SP TYPE: COLON BX OTHR DR: Dr. Vamsi Marrero MD Tissues: A - Duodenum, NOS B - Gastric mucous membrane C - Esophagus, NOS Procedures: Surgery Specimen Level IV HEADER OPERATION: [place], [place] [place] PRE-OP DIAGNOSIS: Positive Cologuard TISSUE SUBMITTED: A ? Duodenum biopsy, B ? Antrum biopsy for H. pylori and path, C ? Distal esophagus biopsy MICROSCOPIC DIAGNOSIS A. Duodenum, biopsy: A fragment of duodenal mucosa with extensive gastric metaplasia and moderate chronic inflammation. B. Antrum, biopsy: Mild gastritis. See microscopic description and comment. C. Distal esophagus, biopsy: Fragments of gastroesophageal mucosa with focal intestinal metaplasia (goblet cell metaplasia) consistent with Carter's esophagus. Focal ulceration and associated acute and chronic inflammation and granulation tissue reaction. Negative for dysplasia. See comment. SJ:arie 07/08/2022 COMMENT B. The results of immunohistochemistry for Helicobacter pylori will be reported separately ([id number]). C. Alcian blue/PAS stain with matched control is used in the evaluation of the specimen. Immunohistochemistry ([id number]) for P53 and Ki-67 will be performed and results will be reported separately. Case has been reviewed in consultation with Dr. Haq who concurs with the above diagnosis. IDC:AM MICROSCOPIC DESCRIPTION Slides are reviewed. B. The specimen shows fragments of gastric mucosa with chronic inflammatory cell infiltrates in the lamina propria consisting of lymphocytes and plasma cells, consistent with mild chronic gastritis. GROSS DESCRIPTION A - Received in fixative is one container labeled with the patient's name and designated duodenum biopsy. The specimen consists of one irregular fragment of light orwe soft tissue that measures 0.5 x 0.3 x 0.1 cm. The specimen is totally submitted in one cassette. B - Received in fixative is one container labeled with the patient's name and designated antrum biopsy. The specimen consists of one irregular fragment of light rowe soft tissue that measures 0.4 x 0.3 x 0.1 cm. The specimen is totally submitted in one cassette. C - Received in fixative is one container labeled with the patient's name and designated distal esophagus. The specimen consists of multiple irregular fragments of light rowe soft tissue that in aggregate measure 1.5 x 0.5 x 0.1 cm. The specimen is totally submitted in one cassette. / SJ:arie 07/05/2022 TC:2 CPT: 24050 x3, 04505
--- NOTE | 2022-07-05 10:57 | OP.EGD_ITS ---
Patient Name: Rosario Mejía Procedure Date: 07/05/2022 10:04 AM Date of : 1945 Age: 76 Procedure: Upper GI endoscopy Indications: Cologuard positive Providers: Sandip Peñaloza MD Medicines: See the Anesthesia note for documentation of the administered medications Complications: No immediate complications. Procedure: Pre-Anesthesia Assessment: - Prior to the procedure, a History and Physical was performed, and patient medications and allergies were reviewed. The patient's tolerance of previous anesthesia was also reviewed. The risks and benefits of the procedure and the sedation options and risks were discussed with the patient. All questions were answered, and informed consent was obtained. Prior Anticoagulants: The patient has taken no previous anticoagulant or antiplatelet agents. ASA Grade Assessment: III - A patient with severe systemic disease. After reviewing the risks and benefits, the patient was deemed in satisfactory condition to undergo the procedure. After obtaining informed consent, the endoscope was passed under direct vision. Throughout the procedure, the patient's blood pressure, pulse, and oxygen saturations were monitored continuously. The Endoscope was introduced through the mouth, and advanced to the second part of duodenum. The upper GI endoscopy was accomplished without difficulty. The patient tolerated the procedure well. Scope In: 10:13:11 AM Scope Out: 10:25:32 AM Total Procedure Duration Time 0 hours 12 minutes 21 seconds Findings: There were esophageal mucosal changes consistent with long-segment Carter's esophagus present in the lower third of the esophagus. The maximum longitudinal extent of these mucosal changes was 7 cm in length. Mucosa was biopsied with a cold forceps for histology in 4 quadrants in the lower third of the esophagus. A large hiatal hernia was present. Diffuse mildly erythematous mucosa without bleeding was found in the gastric antrum. Biopsies were taken with a cold forceps for histology. Diffuse mildly erythematous mucosa without active bleeding and with no stigmata of bleeding was found in the duodenal bulb. Biopsies were taken with a cold forceps for histology. 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 Biopsied. Carter's extends to 28 cm from the incisors. Diaphragm approximately at 35 cm. - Large hiatal hernia. - Erythematous mucosa in the antrum. Biopsied. - Erythematous duodenopathy. Biopsied. Recommendation: - Discharge patient to home. - Resume previous diet. - Continue present medications. - Use Prilosec (omeprazole) 40 mg PO daily. - Return to my office in 1 week. I suspect the Carter's esophagitis is etiologic to the abnormal Cologuard testing Procedure Code(s): --- Professional --- 55298, Esophagogastroduodenoscopy, flexible, transoral; with biopsy, single or multiple Diagnosis Code(s): --- Professional --- K22.8, Other specified diseases of esophagus K44.9, Diaphragmatic hernia without obstruction or gangrene K31.89, Other diseases of stomach and duodenum CPT copyright 2017 [employer]. All rights reserved. The codes documented in this report are preliminary and upon cmm operator review may be revised to meet current compliance requirements. Sandip Peñaloza MD 07/05/2022 10:56:52 AM This report has been signed electronically. Number of Addenda: 0 Note Initiated On: 07/05/2022 10:04 AM
--- NOTE | 2022-07-05 10:58 | OP.CCLET_ITS ---
07/05/2022 Vamsi Marrero [address] [facility] [address] [place] [address] Re : Upper GI endoscopy procedure for Rosario Kym Dear Dr. Marrero This procedure was performed on Tuesday, July 05, 2022. 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 Biopsied. Carter's extends to 28 cm from the incisors. Diaphragm approximately at 35 cm. - Large hiatal hernia. - Erythematous mucosa in the antrum. Biopsied. - Erythematous duodenopathy. Biopsied. Recommendations : - Discharge patient to home. - Resume previous diet. - Continue present medications. - Use Prilosec (omeprazole) 40 mg PO daily. - Return to my office in 1 week. I suspect the Carter's esophagitis is etiologic to the abnormal Cologuard testing My findings are described in the full procedure note, which is enclosed. If I can be of further assistance, please feel free to contact me at Doctor phone number(s): Work: . Sincerely, Sandip Peñaloza MD 07/05/2022 10:56:52 AM This report has been signed electronically.
--- NOTE | 2022-07-05 11:02 | OP.COLON_ITS ---
Patient Name: Rosario Mejía Procedure Date: 07/05/2022 10:27 AM Date of : 1945 Age: 76 Procedure: Colonoscopy Indications: Cologuard positive Providers: Sandip Peñaloza MD Medicines: See the Anesthesia note for documentation of the administered medications Patient Profile: Last Colonoscopy: none. The patient's first colonoscopy is today. Complications: No immediate complications. Procedure: Pre-Anesthesia Assessment: - Prior to the procedure, a History and Physical was performed, and patient medications and allergies were reviewed. The patient's tolerance of previous anesthesia was also reviewed. The risks and benefits of the procedure and the sedation options and risks were discussed with the patient. All questions were answered, and informed consent was obtained. Prior Anticoagulants: The patient has taken no previous anticoagulant or antiplatelet agents. ASA Grade Assessment: III - A patient with severe systemic disease. After reviewing the risks and benefits, the patient was deemed in satisfactory condition to undergo the procedure. After I obtained informed consent, the scope was passed under direct vision. Throughout the procedure, the patient's blood pressure, pulse, and oxygen saturations were monitored continuously. The colonoscope was introduced through the anus and advanced to the cecum, identified by appendiceal orifice and ileocecal valve. The colonoscopy was performed without difficulty. The patient tolerated the procedure well. The quality of the bowel preparation was good. The ileocecal valve was photographed. Scope In: 10:29:00 AM Scope Withdrawal Time 0 hours 7 minutes 3 seconds Scope Out: 10:41:47 AM Total Procedure Duration Time 0 hours 12 minutes 47 seconds Findings: The digital rectal exam findings include non-thrombosed external hemorrhoids, non-thrombosed internal hemorrhoids and internal hemorrhoids that prolapse with straining, but spontaneously regress to the resting position (Grade II). Multiple diverticula were found in the entire colon. The exam was otherwise without abnormality. Impression: - Non-thrombosed external hemorrhoids, non-thrombosed internal hemorrhoids and internal hemorrhoids that prolapse with straining, but spontaneously regress to the resting position (Grade II) found on digital rectal exam. - Diverticulosis in the entire examined colon. Very severe diverticulosis of the sigmoid colon - The examination was otherwise normal. - No specimens collected. Recommendation: - Discharge patient to home. - Resume previous diet. - Continue present medications. - Repeat colonoscopy is not recommended due to current age (66 years or older) for screening purposes. As noted on the upper endoscopy patient has large hiatal hernia and long segment Carter's esophagus with active friability and bleeding. This is likely source of the Cologuard positive test. Procedure Code(s): --- Professional --- 65510, Colonoscopy, flexible; diagnostic, including collection of specimen(s) by brushing or washing, when performed (separate procedure) Diagnosis Code(s): --- Professional --- K64.1, Second degree hemorrhoids K64.4, Residual hemorrhoidal skin tags K57.30, Diverticulosis of large intestine without perforation or abscess without bleeding CPT copyright 2017 [employer]. All rights reserved. The codes documented in this report are preliminary and upon traveling nurse review may be revised to meet current compliance requirements. Sandip Peñaloza MD 07/05/2022 11:01:52 AM This report has been signed electronically. Number of Addenda: 0 Note Initiated On: 07/05/2022 10:27 AM
--- NOTE | 2022-07-05 11:03 | OP.CCLET_ITS ---
07/05/2022 Vamsi Marrero [address] [facility] [address] [place] [address] Re : Colonoscopy procedure for Rosario Mejía Dear Dr. Marrero This procedure was performed on Tuesday, July 05, 2022. My impressions and recommendations are as follows: Impressions : - Non-thrombosed external hemorrhoids, non-thrombosed internal hemorrhoids and internal hemorrhoids that prolapse with straining, but spontaneously regress to the resting position (Grade II) found on digital rectal exam. - Diverticulosis in the entire examined colon. Very severe diverticulosis of the sigmoid colon - The examination was otherwise normal. - No specimens collected. Recommendations : - Discharge patient to home. - Resume previous diet. - Continue present medications. - Repeat colonoscopy is not recommended due to current age (66 years or older) for screening purposes. As noted on the upper endoscopy patient has large hiatal hernia and long segment Carter's esophagus with active friability and bleeding. This is likely source of the Cologuard positive test. My findings are described in the full procedure note, which is enclosed. If I can be of further assistance, please feel free to contact me at Doctor phone number(s): Work: . Sincerely, Sandip Peñaloza MD 07/05/2022 11:01:52 AM This report has been signed electronically.
== END 2022-07-05 12:00 | disposition home or self-care (01) ==
LOC: EN 09:03 → AC 09:05
PROVIDERS: PCP Family Medicine; Referring Provider Family Medicine; Visit Provider Surgery
PROC: 0DJD8ZZ Inspection of Lower Intestinal Tract, Via Natural or Artificial Opening Endoscopic (ICD-10-PCS; CPT 45378; principal; 2022-07-05 09:55)
DX: K22.70 Barrett's esophagus without dysplasia (principal); K64.1 Second degree hemorrhoids; K64.4 Residual hemorrhoidal skin tags; K44.9 Diaphragmatic hernia without obstruction or gangrene; K57.30 Diverticulosis of large intestine without perforation or abscess without bleeding; R19.5 Other fecal abnormalities; K31.89 Other diseases of stomach and duodenum; K22.89 Other specified disease of esophagus; K31.A0 Gastric intestinal metaplasia, unspecified; K29.70 Gastritis, unspecified, without bleeding; E07.9 Disorder of thyroid, unspecified; Z79.899 Other long term (current) drug therapy
CPT/HCPCS: 43239; 45378; 88305; 88341; 88342; J7120; J2405

== ENCOUNTER → 2022-07-18 | Outpatient (CLI) | payer MEDICARE, SELFPAY ==
--- NOTE | 2022-07-18 08:31 | BI_ITS ---
MAMMOGRAPHY - BILATERAL SCREENING REASON FOR EXAM: Female, 76 years old. Routine annual screening examination. PERTINENT HISTORY: Non-contributory. TECHNIQUE: Digital bilateral breast jt (3D mammographic acquisition) in the CC and MLO projections. 2-D mediolateral oblique (MLO) and craniocaudad (CC) views of both breasts were obtained. CAD: Full Field Digital Mammography with Computer Added Detection was performed. COMPARISON: Comparison is made with prior study dated 05/22/2021 and 11/01/2019. FINDINGS: Breast Composition: The breasts are almost entirely fatty. There are no dominant masses or suspicious calcifications. Stable small benign-appearing bilateral axillary lymph nodes. No other significant abnormalities are identified. There has been no significant change since the prior study. BI/SCRN MAMM (CAD)W/JT BILAT IMPRESSION: Stable bilateral screening mammogram. Yearly follow-up mammogram recommended. (A) ASSESSMENT CATEGORY: BIRADS Category 2: Benign. A letter regarding these results will be sent to the patient by the facility within 30 days. Approximately 10% of breast cancers are not detected by mammography. A normal mammogram should not delay biopsy of a clinically suspicious abnormality. [id number] Electronically Signed: Travis Boyle MD at 10:18 EST ,
== END | disposition home or self-care (01) ==
LOC: OPBI 08:29
PROVIDERS: PCP Family Medicine; Referring Provider Family Medicine; Visit Provider Family Medicine
DX: Z12.31 Encounter for screening mammogram for malignant neoplasm of breast (principal)
CPT/HCPCS: 77063; 77067

== ENCOUNTER → 2022-11-13 | Outpatient (CLI) | payer MEDICARE, SELFPAY ==
[2022-11-13 10:37] LABS: Absolute Lymphocyte Count 1.59 X10^3/uL (0.83-4.51); Basophil# 0.04 X10^3/uL; Basophil% 0.6 % (0-1); Eosinophil# 0.15 X10^3/uL; Eosinophils% 2.3 % (0-5); Hematocrit 40.7 % (37-47); Hemoglobin 12.8 g/dL (12.0-15.0); Lymphocyte # 1.59 X10^3/ul (0.83-4.51); Lymphocyte % 24.8 % (19-41); Mean Corp Hgb Conc 31.4 g/dL (32-36); Mean Corpuscular Hgb 28.4 pg (27.0-32.0); Mean Corpuscular Volume 90.2 fL (81-99); Mean Platelet Vol. 10.4 fl (6.2-12.0); Monocyte# 0.62 X10^3/uL; Monocyte% 9.7 % (0-10); NRBC Flagged by Analyzer 0 % (0-5); Neutrophil % 62.3 % (47-70); Platelet Count 290 K/mm3 (150-450); RBC Distribution Width CV 15.3 % (11.6-14.6); RBC Distribution Width SD 51.1 fl (35.1-43.9); RET-HE 32.7 pg (30-35); Red Blood Count 4.51 M/mm3 (4.2-5.4); Reticulocyte Count 0.96 % (0.5-1.5); White Blood Count 6.4 K/mm3 (4.4-11.0)
[2022-11-13 11:44] LABS: ALB/GLOB Ratio 0.9 RATIO (0.9-2.4); AST(SGOT) 16 U/L (15-37); Alanine Aminotransfer ALT/SGPT 19 U/L (13-56); Albumin, Serum 3.6 g/dL (3.2-5.0); Alkaline Phosphatase 55 U/L (45-117); Anion Gap 6 (5-15); BUN 19 mg/dL (7-18); BUN/Creat Ratio 19.1 RATIO (10-20); Calcium,Total 9.5 mg/dL (8.5-10.1); Chloride 107 mmol/L (98-107); Creatinine, Serum 0.99 mg/dL (0.55-1.02); EST Glomerular Filtration Rate 57 mL/min (>60); Est Glom Filt Rate - Afr Amer 69 mL/min (>60); Ferritin 65 ng/mL (8-252); Glucose 99 mg/dL (74-106); Iron Binding Capacity,Total 341 ug/dL (250-450); Protein, Total 7.6 g/dL (6.4-8.2); Sodium Level 139 mmol/L (136-145); Thyroid Stim Hormone (TSH) 0.88 uIU/mL (0.358-3.74)
[2022-11-15 12:08] LABS: Vitamin D 1,25-Dihydroxy 67.4 pg/mL (24.8-81.5)
== END | disposition home or self-care (01) ==
LOC: MFPLAB 08:19
PROVIDERS: PCP Family Medicine; Visit Provider Family Medicine
DX: K62.5 Hemorrhage of anus and rectum (principal); E03.9 Hypothyroidism, unspecified; E55.9 Vitamin D deficiency, unspecified
CPT/HCPCS: 36415; 80053; 82652; 82728; 83550; 84443; 85025; 85045

== ENCOUNTER → 2023-06-11 | Outpatient (CLI) | payer MEDICARE, SELFPAY ==
[2023-06-11 10:39] LABS: Absolute Lymphocyte Count 1.77 X10^3/uL (0.83-4.51); Absolute Neutrophil Count 3.3 X10^3/uL (2.0-7.7); Basophil# 0.04 X10^3/uL; Basophil% 0.7 % (0-1); Eosinophils% 1.7 % (0-5); Hematocrit 40.1 % (37-47); Hemoglobin 12.4 g/dL (12.0-15.0); Lymphocyte # 1.77 X10^3/ul (0.83-4.51); Lymphocyte % 30.3 % (19-41); Mean Corp Hgb Conc 30.9 g/dL (32-36); Mean Corpuscular Hgb 28.3 pg (27.0-32.0); Mean Corpuscular Volume 91.6 fL (81-99); Mean Platelet Vol. 10.1 fl (6.2-12.0); Monocyte# 0.65 X10^3/uL; Monocyte% 11.1 % (0-10); NRBC Flagged by Analyzer 0 % (0-5); Neutrophil # 3.27 X10^3/uL (2.7-7.7); Platelet Count 279 K/mm3 (150-450); RBC Distribution Width SD 50.3 fl (35.1-43.9); Red Blood Count 4.38 M/mm3 (4.2-5.4); White Blood Count 5.8 K/mm3 (4.4-11.0)
[2023-06-11 11:21] LABS: AST(SGOT) 17 U/L (15-37); Alanine Aminotransfer ALT/SGPT 16 U/L (13-56); Albumin, Serum 3.6 g/dL (3.2-5.0); Alkaline Phosphatase 63 U/L (45-117); Anion Gap 7 (5-15); BUN 17 mg/dL (7-18); BUN/Creat Ratio 16.5 RATIO (10-20); Calcium,Total 9.3 mg/dL (8.5-10.1); Chloride 110 mmol/L (98-107); Creatinine, Serum 1.03 mg/dL (0.55-1.02); EST Glomerular Filtration Rate 55 mL/min (>60); Est Glom Filt Rate - Afr Amer 66 mL/min (>60); Globulin 3.7 g/dL (2.2-4.2); Glucose 89 mg/dL (74-106); Protein, Total 7.3 g/dL (6.4-8.2); Sodium Level 141 mmol/L (136-145)
[2023-06-11 12:13] LABS: Microalbumin,Random Urine 10.3 mg/L (NO RANGE EST.); Microalbumin:Creatinine Ratio 16.3 mg/g CRE (<30 mg/g CRE)
== END | disposition home or self-care (01) ==
LOC: MFPLAB 08:08
PROVIDERS: PCP Family Medicine; Visit Provider Family Medicine
DX: I12.9 Hypertensive chronic kidney disease with stage 1 through stage 4 chronic kidney disease, or unspecified chronic kidney disease (principal); N18.31 Chronic kidney disease, stage 3a
CPT/HCPCS: 36415; 80053; 82043; 82570; 85025

== ENCOUNTER → 2023-07-31 | Outpatient (CLI) | payer MEDICARE, SELFPAY ==
--- OUTSIDE RECORDS SUMMARY | 2023-07-31 09:22 | XMS RPT_ITS | CCD ---
Author Name Unknown Address [address] [facility] [address] [place] [address] Organization [facility] Care Team Providers Care Kiln Firer Name Role Phone ZHANNA THOMAS, AYANA Melissa Primary Care Physician ZHANNA THOMAS., AYANA Melissa Primary Care Unavailable RUPA THOMAS, MYLA Melissa Attending Unavailable ZHANNA THOMAS., AYANA Melissa Primary Care Unavailable MYLA GOODE MD Attending Unavailable NITA HOFFMAN MD., AYANA Melissa Primary Care MYLA Cardoza MD Admitting Unavailable MYLA GOODE MD Attending Unavailable Medications Current Medications Medication Drug Class(es) Dates Sig (Normalized) Sig (Original) levothyroxine sodium 0.05 mg oral tablet (2 sources) l-Thyroxine Start: 03-22-2022 levothyroxine 50 mcg (0.05 mg) oral tablet Dose : 50 mcg = 1 tab(s), Oral, qDayAC, 0 Refill(s) Start Date: 03/22/22 Status: Ordered Vitamin D3 50 mcg (2000 intl units) oral tablet (2 sources) Start: 03-22-2022 Vitamin D3 50 mcg (2000 intl units) oral tablet Dose : 50 mcg = 1 tab(s), Oral, Daily, 0 Refill(s) Start Date: 03/22/22 Status: Ordered Results Test Name Value Interpretation Reference Range Facil ity Vital Signs Date Time Vital Sign Value Performing Clinician Faci lity 03-22-2022 08:55-0400 Body height 152.[address] MYLA GOODE MD [facility] 03-22-2022 08:55-0400 Body weight 80.[address] MYLA GOODE MD [facility] 03-22-2022 08:55-0400 Body weight 34.75 kg/m2 DR MYLA GOODE MD [facility] 03-22-2022 08:55-0400 diastolic 66 mm[Hg] DR MYLA GOODE MD [facility] 03-22-2022 08:55-0400 Heart rate 64 /min DR MYLA GOODE MD [facility] 03-22-2022 08:55-0400 Respiratory rate 20 /min DR MYLA GOODE MD [facility] 03-22-2022 08:55-0400 systolic 160 mm[Hg] DR MYLA GOODE MD [facility] Encounters Encounter Date Encounter Type Care Provider Facility Start: 04-02-2022 End: 04-03-2022 ambulatory NITA HOFFMAN Facility:B Start: 03-22-2022 End: 03-23-2022 ambulatory AYANA CHAO MD. Facility:[facility] Start: 03-22-2022 End: 03-23-2022 ambulatory AYANA CHAO MD. Facility:[facility] Start: 03-22-2022 End: 03-22-[address] MYLA GOODE MD [facility] Start: 03-22-2022 End: 03-22-[address] MYLA GOODE MD [facility] Procedures Date Procedure Procedure Detail Performing Clinician Arthroscopy of knee DR MAE GOODE MD Payers Date Payer Category Payer Private Health Insurance [id number] 1945 Unknown [id number] 1945 Unknown [id number] 1945 Unknown [id number] Social History Date Type Detail Facility Start: 03-22-2022 Tobacco smoking status Never s moked tobacco (finding) [facility] Sex Assigned At Female [facility] Functional Status Date Assessment Result Facility 03-22-2022 Functional Status Sensory Deficits None A [facility] Clinical Note 03-22-2022 Note Date & Type Note Facility 03-22-2022 Note ORIGINAL EXAMINATION: CT OF THE LEFT KNEE WITHOUT UJZMLJHW80/21/2022 10:[address] of the left knee without contrast TECHNIQUE: Axial images of the knee are obtained with sagittal and coronal reconstructions. Limited axial imaging is also performed through the ipsilateral hip and ankle joints. This exam was performed according to our departmental dose-optimization program which includes automated exposure control, adjustment of the mA and/or kVp according to patient size and/or use of iterative reconstruction technique where applicable. COMPARISON: None HISTORY: ORDERING SYSTEM PROVIDED HISTORY: Reason for Exam: Varus deformity, M 21.162 chronic left knee pain FINDINGS: Medial compartment: Large marginal osteophytes, subchondral sclerosis and severe compartment narrowing. Moderate meniscal calcification. Lateral compartment: Large marginal osteophytes, subchondral sclerosis but no significant compartment narrowing. Meniscal calcification. Patellofemoral compartment: Patellofemoral marginal spurring and high-grade chondromalacia. Other: There is moderate joint effusion. No significant popliteal cyst. There is extensive calcification of the menisci, capsule and ligaments suggestive of CPPD. There is a 6 mm ossific loose body medial to the fibular head probably within the popliteus bursa. Hip: Limited axial images through the hip joint. There is mild to moderate hip osteoarthritis with some ligamentous/capsular calcification. Hamstring tendon origin enthesopathy with calcification. Incidental sigmoid diverticulosis without diverticulitis. Calcification of cartilage in the symphysis pubis. Ankle: Limited axial images of the ankle are also obtained. There are ligamentous/capsular calcifications at the ankle. IMPRESSION: Severe tri compartment osteoarthritis. Extensive meniscal and capsular/ligamentous calcifications in the knee, ankle and hip joints suggestive of CPPD. Interpreted by: Bret Blakely MD Preliminary Report By: Bret Blakely MD Electronically signed By Bret Blakely MD Dictated Date: 03/22/2022 2:34:18 PM Prelim Date: 03/22/2022 2:40:36 PM Sign Date: 03/22/2022 2:40:36 PM Ordering Provider: MYLA RUPA [facility] Clinical Note 03-22-2022 Note Date & Type Note Facility 03-22-2022 Note ORIGINAL EXAMINATION: CT OF THE LEFT KNEE WITHOUT MOYXCAYV42/21/2022 10:[address] of the left knee without contrast TECHNIQUE: Axial images of the knee are obtained with sagittal and coronal reconstructions. Limited axial imaging is also performed through the ipsilateral hip and ankle joints. This exam was performed according to our departmental dose-optimization program which includes automated exposure control, adjustment of the mA and/or kVp according to patient size and/or use of iterative reconstruction technique where applicable. COMPARISON: None HISTORY: ORDERING SYSTEM PROVIDED HISTORY: Reason for Exam: Varus deformity, M 21.162 chronic left knee pain FINDINGS: Medial compartment: Large marginal osteophytes, subchondral sclerosis and severe compartment narrowing. Moderate meniscal calcification. Lateral compartment: Large marginal osteophytes, subchondral sclerosis but no significant compartment narrowing. Meniscal calcification. Patellofemoral compartment: Patellofemoral marginal spurring and high-grade chondromalacia. Other: There is moderate joint effusion. No significant popliteal cyst. There is extensive calcification of the menisci, capsule and ligaments suggestive of CPPD. There is a 6 mm ossific loose body medial to the fibular head probably within the popliteus bursa. Hip: Limited axial images through the hip joint. There is mild to moderate hip osteoarthritis with some ligamentous/capsular calcification. Hamstring tendon origin enthesopathy with calcification. Incidental sigmoid diverticulosis without diverticulitis. Calcification of cartilage in the symphysis pubis. Ankle: Limited axial images of the ankle are also obtained. There are ligamentous/capsular calcifications at the ankle. IMPRESSION: Severe tri compartment osteoarthritis. Extensive meniscal and capsular/ligamentous calcifications in the knee, ankle and hip joints suggestive of CPPD. Interpreted by: Bret Blakely MD Preliminary Report By: Bret Blakely MD Electronically signed By Bret Blakely MD Dictated Date: 03/22/2022 2:34:18 PM Prelim Date: 03/22/2022 2:40:36 PM Sign Date: 03/22/2022 2:40:36 PM Ordering Provider: MYLA GOODE [facility] Evaluation + Plan note Note Date & Type Note Facility Evaluation + Plan note Future Appointments [facility] Hospital course Narrative Note Date & Type Note Facility Hospital course Narrative No data available for this section [facility] Hospital Discharge instructions Note Date & Type Note Facility Hospital Discharge instructions No data available for this section [facility] Summary Purpose Family History No Family History Records Found Advance Directives No Advanced Directives Records Found Additional Source Comments Care Team (unrecognized sect ion and content) Care Team Personnel Name: AYANA CHAO MD Member Role: Primary Care Physician Address: Address: [place] [address] Care Team Personnel Name: AYANA CHAO MD Member Role: Primary Care Physician Address: Address: [place] [address] INFORMATION SOURCE (unrecogn ized section and content) FOR RECORDS PERTAINING TO PATIENTS WHO ARE OR HAVE BEEN ENROLLED IN A CHEMICAL DEPENDENCY/SUBSTANCEABUSE PROGRAM, SOME INFORMATION MAY BE OMITTED. This clinical summary was aggregated from multiple sources. Caution should be exercised in using it in the provision of clinical care. This summary normalizes information from multiple sources, and as a consequence, information in this document may materially change the coding, format and clinical context of patient data. In addition, data may be omitted in some cases. CLINICAL DECISIONS SHOULD BE BASED ON THE PRIMARY CLINICAL RECORDS. [facility] [employer] provides no warranty or guarantee of the accuracy or completeness of information in this document.
[2023-07-31 11:30] LABS: Hepatitis B Surface Antibody Reactive; Hepatitis B Surface Antigen Non-Reactive (Nonreactive); Hepatitis C Antibody Non-Reactive (Nonreactive)
[2023-08-02 05:07] LABS: HIV-1 RNA by PCR, Quant. < 20 copies/mL (.)
== END | disposition home or self-care (01) ==
LOC: LAB.FUTURE 08:43
PROVIDERS: PCP Family Medicine; Visit Provider Dermatology
DX: L57.0 Actinic keratosis (principal); L40.0 Psoriasis vulgaris; L40.8 Other psoriasis; L82.1 Other seborrheic keratosis; L57.8 Other skin changes due to chronic exposure to nonionizing radiation; D22.5 Melanocytic nevi of trunk; Z71.89 Other specified counseling; Z79.899 Other long term (current) drug therapy
CPT/HCPCS: 36415; 86480; 86705; 86706; 86803; 87340; 87536

== ENCOUNTER → 2023-08-06 | Outpatient (CLI) | payer MEDICARE, SELFPAY ==
[2023-08-08 17:08] LABS: QNTFERON TB Mitogen Value > 10.00 IU/mL (.); QNTFERON TB Nil Value 0.03 IU/mL (.); QNTFERON TB1+ Ag Value 0.04 IU/mL (.); QNTFERON TB2+ Ag Value 0.03 IU/mL (.); QNTIFERON TB Positive Criteria Negative (Negative)
== END | disposition home or self-care (01) ==
PROVIDERS: PCP Family Medicine; Visit Provider Dermatology
DX: L57.0 Actinic keratosis (principal); L40.0 Psoriasis vulgaris; L40.8 Other psoriasis; D22.5 Melanocytic nevi of trunk; L82.1 Other seborrheic keratosis; L57.8 Other skin changes due to chronic exposure to nonionizing radiation; Z71.89 Other specified counseling; Z79.899 Other long term (current) drug therapy
CPT/HCPCS: 86480

== ENCOUNTER 2023-08-19 10:50 | Inpatient (IN) | payer MEDICARE, SELFPAY ==
[2023-08-19] VITALS (8 sets, daily range): BP systolic 140–201; BP diastolic 57–110; PULSE 56–65; RESP 12–23; TEMP 36.4–37.1; O2SAT 94–100; BMI 33.4
--- NOTE | 2023-08-19 11:23 | EKG12_ITS ---
Test Reason : PALPITATIONS Blood Pressure : / mmHG Vent. Rate : 053 BPM Atrial Rate : 053 BPM P-R Int : 260 ms QRS Dur : 094 ms QT Int : 438 ms P-R-T Axes : 036 -32 026 degrees QTc Int : 410 ms Sinus bradycardia with marked sinus arrhythmia with 1st degree A-V block Left axis deviation Minimal voltage criteria for LVH, may be normal variant ( R in aVL ) Abnormal ECG Confirmed by Christo Kim ([id number]), art editor SHADI DAVIS ([id number]) on 08/21/2023 10:54:59 AM Referred By: Confirmed By:Christo Kim
--- NOTE | 2023-08-19 11:24 | EX.ED.DYSGE1 ---
HPI History of Present Illness Chief Complaint: Palpitations Detail of Chief Complaint: Palpitations and second-degree AV block Informant: patient Narrative Narrative: Patient presents to the emergency department at the request of her primary care physician and health sciences department chair for possible pacemaker placement and evaluation. Patient apparently wore a Holter monitor for 7 days after she had 2 choking episodes that caused syncope. Apparently results were sent to her PCP whom she saw today and he was concerned about findings therefore spoke with cardiology Dr. Lacy Rouse who recommended that patient come to the emergency department to be evaluated for pacemaker. Patient otherwise denies any significant complaints. She has no chest pain or shortness of breath. [facility] Medical History Arthritis Cold sore Difficulty swallowing Heartburn History of edema Meniere disease Non-smoker Positive colorectal cancer screening using Cologuard test Post-menopausal Thyroid disease Wears glasses Home Medications levothyroxine 50 mcg tablet 50 mcg PO DAILY thyroid 12/09/19 [History Last Taken 12/21/19] cholecalciferol (vitamin D3) 50 mcg (2,000 unit) capsule (Vitamin D3) 50 mcg PO DAILY 07/04/22 [History Last Taken Unknown] omeprazole 40 mg capsule,delayed release See Rx Instructions .Route .COMPLEX #90 caps 09/28/22 [Rx Last Taken Unknown] Allergy/AdvReac Type Severity Reaction Status Date / Time No Known Allergies Allergy Verified 08/19/23 10:54 Family History Mother Cancer Diabetes Heart disease Kidney disease Father Diabetes Heart disease CVA (cerebral vascular accident) Brother Diabetes Surgical History History of bilateral cataract extraction History of left knee surgery Hx of total knee arthroplasty Hx of total knee arthroplasty Social History Smoking Status: Never smoker alcohol intake: never substance use type: does not use ROS ROS ED Review of Systems ROS Unobtainable: other Constitutional Constitutional ED: Reports lethargy; Denies chills, fever(s), sweats or weight loss Eyes Eyes: Denies blurry vision, change in vision or diplopia ENT ENT ED: Denies rhinorrhea or sore throat Cardiovascular Cardiovascular: Reports palpitations; Denies chest pain, orthopnea or racing heartbeat Respiratory/Chest Respiratory/Chest: Denies cough, dyspnea, dyspnea on exertion, orthopnea or sputum Gastrointestinal Gastrointestinal: Denies abdominal pain, diarrhea, nausea or vomiting Genitourinary Genitourinary ED: Denies dysuria, hematuria or urinary frequency Musculoskeletal Musculoskeletal: Denies arthralgias, back pain, myalgias or neck pain Integumentary Denies abscess, Abrasions or rash Neurologic Neurologic: Denies headache(s) or weakness Psychiatric Psychiatric: Denies anxiety, depression or suicidal thoughts Endocrine Endocrinology: Denies polydipsia, polyphagia or polyuria Hematologic/Lymphatic Hematologic/Lymphatic: Denies easy bleeding, easy bruising or lymphadenopathy Allergic/Immunologic Allergic/Immunologic ED: Denies mouth swelling, tongue swelling or urticaria EXAM Physical Exam Const Vital Signs: 08/19/23 10:51 08/19/23 10:51 08/19/23 11:09 Temperature 97.6 F L 97.6 F L Temperature Source Temporal Temporal Pulse Rate 58 L 58 L Respiratory Rate 16 16 Respiratory Effort Normal Non-Labored Respiratory Pattern Normal Blood Pressure 201/78 H 201/78 H Blood Pressure Mean 119 119 Pulse Ox 98 98 Oxygen Delivery Method Room Air Room Air 08/19/23 11:51 08/19/23 13:00 Temperature Temperature Source Pulse Rate 65 58 L Respiratory Rate 19 H 12 Respiratory Effort Respiratory Pattern Blood Pressure 184/86 H 171/72 H Blood Pressure Mean 118 105 Pulse Ox 99 94 Oxygen Delivery Method Room Air Room Air Positive well nourished and well developed General Appearance ED: well developed and NAD HEENT Reports TM's clear and moist mucous membranes normocephalic and atraumatic; Negative for trauma or tenderness Tympanic Membrane ED: Yes TM's clear Eyes PERRL and EOMs intact bilaterally General Eye ED: Negative for pale conjunctiva or scleral icterus Neck no lymphadenopathy, supple and no JVD General: Negative for tenderness Chest Wall inspection of chest normal and palpation of chest normal Chest: Negative for tenderness Resp normal respiratory effort and clear to auscultation bilaterally Effort and Inspection: Negative for respiratory distress or pain with movement Auscultation: Negative for rhonchi, wheezes or diminished lung sounds Cardio regular rhythm, S1 normal heart sound, S2 normal heart sound and no murmurs; Negative for regular rate Rate: bradycardia Peripheral Pulses: pulses 2+ throughout GI normal to inspection, nondistended, normoactive bowel sounds, soft to palpation, non-tender, non-distended and no masses Back/Spine no CVA tenderness and no thoracic nor lumbar tenderness Extremity normal to inspection General Extremety ED: Negative for edema General Extremity: Negative for edema Neuro oriented x3, CN's II-XII intact bilaterally, no sensory deficits noted and gait normal Sensorium / Orientation: awake, alert, oriented to person, oriented to place and oriented to time Motor Exam: strength 5/5 throughout and strength abnormal Psych mental status grossly normal Skin no rashes or lesions noted and no wounds MDM MDM MDM Narrative Medical decision making narrative: Patient presents with concern for second-degree heart block or complete heart block. She had 2 episodes of syncope within the last 6 months that were related to choking spells. She then wore a Holter monitor and showed abnormalities and was referred to the emergency department. Currently she denies any chest pain or shortness of breath or palpitations. Has not been ill recently. IV line established. EKG obtained. EKG shows bradycardia with heart rate of 53 bpm that is narrow complex with concern for third-degree heart block. CBC with differential obtained was unremarkable. Chemistries unremarkable. Troponin was normal at 3. Case discussed with health sciences department chair who recommended admission for pacemaker. Will discuss case with hospitalist to evaluate patient for admission. Patient being seen by cardiology in the department currently Dr. Lacy Rouse. Lab Data Attestation: I reviewed the patient's lab results. Labs: Laboratory Results - last 24 hr 08/19/23 12:00 WBC 8.9 RBC 5.11 Hgb 14.4 Hct 46.2 MCV 90.4 MCH 28.2 MCHC 31.2 L RDW Std Deviation 49.4 H RDW Coeff of Eros 15.0 H Plt Count 265 MPV 9.7 Immature Gran % (Auto) 0.300 Neut % (Auto) 65.5 Lymph % (Auto) 23.7 Dunn % (Auto) 8.7 Eos % (Auto) 1.2 Baso % (Auto) 0.6 Absolute Neuts (auto) 5.8 Absolute Lymphs (auto) 2.11 Nucleated RBC % 0 Sodium 140 Potassium 4.3 Chloride 106 Carbon Dioxide 26.0 Anion Gap 8 BUN 23 H Creatinine 1.25 H Estim Creat Clear Calc 33.60 Est GFR (MDRD) Af Amer 53 L Est GFR (MDRD) Non-Af 44 L BUN/Creatinine Ratio 18.4 Glucose 91 Calcium 9.6 Troponin I High Sens 3 Radiography Diagnostic Testing: Clinical Impression(s) from Imaging Studies Chest X-Ray 08/19/23 12:10 IMPRESSION: No acute abnormality is seen. Calcific tendinitis of the left shoulder. Electronically Signed: Travis Boyle MD at 13:35 EDT , 1 view chest x-ray obtained showed mild cardiomegaly on my interpretation otherwise no acute process. There is no infiltrate or pneumothorax. Radiology in agreement. EKG Initial EKG: Attestation: I personally reviewed and interpreted this EKG as follows: Comments: Sinus with concern for complete heart block with rate of 53 bpm Discharge Plan Dx/Rx/DC Orders Clinical Impression: History of syncope, Bradycardia, Heart block Disposition Disposition: Acute Care Hospital [facility] Discharge Date/Time: 08/19/23 15:20
[2023-08-19] MEDS: 0.9% Normal Saline (1000mL) 1,000 ML 150 ML IV (12:01)
[2023-08-19 12:09] LABS: Absolute Lymphocyte Count 2.11 X10^3/uL (0.83-4.51); Absolute Neutrophil Count 5.8 X10^3/uL (2.0-7.7); Basophil# 0.05 X10^3/uL; Basophil% 0.6 % (0-1); Eosinophil# 0.11 X10^3/uL; Eosinophils% 1.2 % (0-5); Hematocrit 46.2 % (37-47); Hemoglobin 14.4 g/dL (12.0-15.0); Lymphocyte # 2.11 X10^3/ul (0.83-4.51); Lymphocyte % 23.7 % (19-41); Mean Corp Hgb Conc 31.2 g/dL (32-36); Mean Corpuscular Hgb 28.2 pg (27.0-32.0); Mean Corpuscular Volume 90.4 fL (81-99); Mean Platelet Vol. 9.7 fl (6.2-12.0); Monocyte# 0.78 X10^3/uL; Monocyte% 8.7 % (0-10); NRBC Flagged by Analyzer 0 % (0-5); Neutrophil # 5.84 X10^3/uL (2.7-7.7); Neutrophil % 65.5 % (47-70); Platelet Count 265 K/mm3 (150-450); RBC Distribution Width SD 49.4 fl (35.1-43.9); Red Blood Count 5.11 M/mm3 (4.2-5.4); White Blood Count 8.9 K/mm3 (4.4-11.0)
--- NOTE | 2023-08-19 12:10 | RAD_ITS ---
STUDY: X-RAY CHEST REASON FOR EXAM: Female, 77 years old. Palpitations TECHNIQUE: Single AP portable view of the chest. COMPARISON: None. FINDINGS: EKG electrodes are seen. The lungs are clear and expanded. There is no demonstrated pleural abnormality. There is borderline cardiomegaly. Normal mediastinum and reno. Normal visualized pulmonary arteries. There is atherosclerotic tortuosity of the aortic arch and descending thoracic aorta. Normal visualized thoracic spine. Calcific tendinitis of the left shoulder. Borderline cardiomegaly. The lungs are clear. RAD/Chest 1 View (Portable) IMPRESSION: No acute abnormality is seen. Calcific tendinitis of the left shoulder. Electronically Signed: Travis Boyle MD at 13:35 EDT ,
[2023-08-19 12:21] LABS: Anion Gap 8 (5-15); BUN 23 mg/dL (7-18); BUN/Creat Ratio 18.4 RATIO (10-20); Calcium,Total 9.6 mg/dL (8.5-10.1); Chloride 106 mmol/L (98-107); Creatinine, Serum 1.25 mg/dL (0.55-1.02); EST Glomerular Filtration Rate 44 mL/min (>60); Est Glom Filt Rate - Afr Amer 53 mL/min (>60); Glucose 91 mg/dL (74-106); Potassium 4.3 mmol/L (3.5-5.1); Sodium Level 140 mmol/L (136-145); Troponin-I HS 3 pg/mL (3.0-54.0)
--- NOTE | 2023-08-19 13:47 | ECHOCS_ITS ---
Reason For Study: Arrhythmia Procedure This was a 2D Doppler, Color Flow transthoracic echocardiogram. Contrast injection was performed. Exam performed portable in patient room. Left Ventricle Normal LV size. Left ventricular systolic function is normal. The estimated ejection fraction is 65 %. Stage 1 diastolic dysfunction. No regional wall motion abnormalities noted. Right Ventricle Normal RV size. Normal systolic function. Atria Normal left atrium. Normal right atrium. Mitral Valve Normal mitral valve. Tricuspid Valve Normal tricuspid valve. Mild tricuspid valve insufficiency. Pulmonary artery systolic pressure is 25 mmHg. Aortic Valve Trisinus/trileaflet aortic valve. Mild (1+) aortic valve insufficiency. Pulmonic Valve Normal pulmonic valve. Great Vessels Normal aortic root. The pulmonary artery is normal size. Normal inferior vena cava. Pericardium/Pleural No pericardial effusion. Medication Diluted definity 1.5ml given slow IV push to enhance endocardial definition. MMode/2D Measurements & Calculations LVIDd: 4.6 cm IVSd: 1.0 cm Ao root diam: 3.1 cm LVIDs: 3.1 cm LVPWd: 0.85 cm LA dimension: 4.5 cm FS: 33.0 % LAV(MOD-bp): 58.6 ml LVAd ap4: 27.7 cm2 SV(MOD-sp4): 54.6 ml LAV(MOD-bp) Indexed: 33.6 ml/m2 LVLd ap4: 7.2 cm LAV(MOD-sp2): 59.4 ml EDV(MOD-sp4): 86.9 ml LAV(MOD-sp4): 58.9 ml EDV(sp4-el): 90.3 ml LVAs ap4: 14.5 cm2 LVLs ap4: 5.6 cm ESV(MOD-sp4): 32.3 ml ESV(sp4-el): 32.2 ml EF(MOD-sp4): 62.8 % EF(sp4-el): 64.3 % SV(sp4-el): 58.1 ml LA A4 area: 19.6 cm2 RA A4 area: 11.1 cm2 TAPSE: 1.9 cm Time Measurements MV dec time: 0.21 sec Doppler Measurements & Calculations MV E max esau: 57.5 cm/sec Lat Peak E' Esau: 12.0 cm/sec Med Peak E' Esau: 7.3 cm/sec MV A max esau: 76.1 cm/sec E/E' lat: 4.8 E/E' med: 7.9 MV E/A: 0.76 MV V2 max: 98.7 cm/sec MV P1/2t max esau: 74.2 cm/sec Ao V2 max: 177.7 cm/sec MV max P.9 mmHg MV P1/2t: 69.1 msec Ao max P.6 mmHg MV V2 mean: 48.4 cm/sec Ao V2 mean: 114.3 cm/sec MV mean P.1 mmHg MV dec slope: 314.5 cm/sec2 Ao mean P.1 mmHg MV V2 VTI: 25.1 cm MVA(P1/2t): 3.2 cm2 Ao V2 VTI: 39.1 cm AV (velocity ratio): 0.82 AI max esau: 469.4 cm/sec LV V1 max: 143.0 cm/sec PA V2 max: 109.8 cm/sec AI max P.2 mmHg LV V1 max P.2 mmHg LV V1 mean P.7 mmHg AI dec slope: 230.7 cm/sec2 LV V1 mean: 103.7 cm/sec AI P1/2t: 596.1 msec LV V1 VTI: 32.1 cm TR max esau: 234.5 cm/sec TR max P.0 mmHg ECHO/Echo Complete W/ Contrast Interpretation Summary Normal LV size. Left ventricular systolic function is normal. The estimated ejection fraction is 65 %. Stage 1 diastolic dysfunction. Pulmonary artery systolic pressure is 25 mmHg. Contrast injection was performed. Ordering Physician: Francis Retana Referring Physician: Vamsi Marrero Performed By: Boone Rao RCS
--- NOTE | 2023-08-19 13:51 | HP.PCM.HOS_ITS ---
HPI - General General Date of Admission: 08/19/23 Date of Service: 08/19/23 Chief Complaint: Heart block HPI Narrative TOÑO SALAS, is a 77 F who presented to [facility] ED on 08/18/2023 for heart block noted on outpatient cardiac monitoring. Patient seen at bedside in the ED, present. Patient was sitting up comfortably in bed, conversing normally, no acute distress. States that she had to episodes of passing out about 5 to 6 months ago. Both were related to choking on food. She notably has not had any issues with dysphagia since then. States her family was there for both episodes that she was out for several seconds before coming to. She does not remember having any symptoms prior to passing out aside from choking on the food. Because of these episodes, her PCP had her wear a Holter monitor for 7 days and she was found to have episodes concerning for Mobitz type II heart block and/or third-degree heart block. Patient denies having any symptoms over the 7-day period. She has minimal past medical history, only takes Synthroid and omeprazole at home on regular basis. She has been told her blood pressures have been high at both medical and dental office visits, but on recording her blood pressures at home there have been no issues. She has never been prescribed any blood pressure medications. Patient otherwise has been feeling well recently. No other acute concerns this time. [facility] Medical History Arthritis Cold sore Difficulty swallowing Heartburn History of edema Meniere disease Non-smoker Positive colorectal cancer screening using Cologuard test Post-menopausal Thyroid disease Wears glasses Home Medications levothyroxine 50 mcg tablet 50 mcg PO DAILY thyroid 12/09/19 [History Last Taken 12/21/19] cholecalciferol (vitamin D3) 50 mcg (2,000 unit) capsule (Vitamin D3) 50 mcg PO DAILY 07/04/22 [History Last Taken Unknown] omeprazole 40 mg capsule,delayed release See Rx Instructions .Route .COMPLEX #90 caps 09/28/22 [Rx Last Taken Unknown] Allergy/AdvReac Type Severity Reaction Status Date / Time No Known Allergies Allergy Verified 08/19/23 10:54 Family History Mother Cancer Diabetes Heart disease Kidney disease Father Diabetes Heart disease CVA (cerebral vascular accident) Brother Diabetes Surgical History History of bilateral cataract extraction History of left knee surgery Hx of total knee arthroplasty Hx of total knee arthroplasty Social History Smoking Status: Never smoker alcohol intake: never substance use type: does not use ROS Constitutional Constitutional: Denies chills, fatigue, fever(s) or weakness Eyes Eyes: Denies change in vision ENT HEENT: Denies dysphagia Cardiovascular Cardiovascular: Denies chest pain, lightheadedness, palpitations, rapid heart rate or syncope Respiratory/Chest Respiratory/Chest: Denies cough or shortness of breath at rest Gastrointestinal Gastrointestinal: Denies abdominal pain Neurologic Neurologic: Denies dizziness, focal weakness or headache(s) Vital Signs Vital Signs Vital Signs: 08/19/23 10:51 08/19/23 10:51 08/19/23 11:09 Temperature 97.6 F L 97.6 F L Temperature Source Temporal Temporal Pulse Rate 58 L 58 L Respiratory Rate 16 16 Respiratory Effort Normal Non-Labored Respiratory Pattern Normal Blood Pressure 201/78 H 201/78 H Blood Pressure Mean 119 119 Pulse Ox 98 98 Oxygen Delivery Method Room Air Room Air 08/19/23 11:51 08/19/23 13:00 Temperature Temperature Source Pulse Rate 65 58 L Respiratory Rate 19 H 12 Respiratory Effort Respiratory Pattern Blood Pressure 184/86 H 171/72 H Blood Pressure Mean 118 105 Pulse Ox 99 94 Oxygen Delivery Method Room Air Room Air Weight Weight: 77.564 kg Body Mass Index (BMI) 33.4 Physical Exam Const alert, oriented x3 and no apparent distress Constitutional Narrative: Pleasant elderly female, obese, sitting up comfortably in bed, conversing normally, no acute distress. General Appearance: cooperative and comfortable HEENT normocephalic, head/scalp atraumatic, hearing grossly normal bilaterally, nasal mucous membranes and turbinates normal and moist oral mucous membranes Eyes PERRL, EOMs intact bilaterally and conjunctivae normal Neck full ROM Chest inspection of chest normal Resp normal respiratory effort, normal air movement, no use of accessory muscles and clear to auscultation bilaterally Cardio regular rate, regular rhythm, no murmurs and peripheral pulses 2+ throughout GI normal to inspection, nondistended, normoactive bowel sounds, soft to palpation, non-tender and non-distended Back/Spine normal ROM Extremity normal to inspection, full ROM and no pedal edema Skin no rashes or lesions noted Neuro moves all extremities and no focal motor deficits Speech: speech normal Psych mental status grossly normal Results Lab / Micro Data 08/19/23 12:00 08/19/23 12:00 Labs: Laboratory Results - last 24 hr 08/19/23 12:00: WBC 8.9, RBC 5.11, Hgb 14.4, Hct 46.2, MCV 90.4, MCH 28.2, MCHC 31.2 L, RDW Std Deviation 49.4 H, RDW Coeff of Eros 15.0 H, Plt Count 265, MPV 9.7, Immature Gran % (Auto) 0.300, Neut % (Auto) 65.5, Lymph % (Auto) 23.7, [place] % (Auto) 8.7, Eos % (Auto) 1.2, Baso % (Auto) 0.6, Absolute Neuts (auto) 5.8, Absolute Lymphs (auto) 2.11, Nucleated RBC % 0, Sodium 140, Potassium 4.3, Chloride 106, Carbon Dioxide 26.0, Anion Gap 8, BUN 23 H, Creatinine 1.25 H, Estim Creat Clear Calc 33.60, Est GFR (MDRD) Af Amer 53 L, Est GFR (MDRD) Non-Af 44 L, BUN/Creatinine Ratio 18.4, Glucose 91, Calcium 9.6, Troponin I High Sens 3 Imaging Radiology Impression Chest X-Ray 08/19/23 12:10 IMPRESSION: No acute abnormality is seen. Calcific tendinitis of the left shoulder. Electronically Signed: Travis Boyle MD at 13:35 EDT , Assessment & Plan Assessment/Plan (1) Heart block: PLAN: Plan Patient is a 77-year-old female who presented to [facility] ED on 08/19/2023 for heart block noted on outpatient cardiac monitoring. 1. Heart block ? Noted on outpatient Holter monitor. Unclear if Mobitz type II heart block versus complete heart block, but recommendation from cardiology was to come to the hospital for evaluation for pacemaker placement. Patient asymptomatic with these episodes. ? EKG in ED showed only sinus bradycardia with first-degree AV block. Patient hemodynamically stable, on room air in the ED. ? Admit under inpatient status to PCU. Cardiology consulted. Echo ordered. N.p.o. at midnight for possible pacemaker placement tomorrow. Continuous cardiac monitoring. 2. Elevated blood pressure readings with suspected essential hypertension, history of whitecoat hypertension ? BP 170s to 180s systolic in the ED. Patient asymptomatic. Does have history of whitecoat hypertension, states she has been in the 170s to 180s at previous medical and dental visits. Has checked her blood pressure regularly at home in the past and runs in the 130s to 140s consistently. Has never been on any blood pressure medication. ? Mild LVH noted on EKG on admission. Patient also with likely CKD stage IIIa as noted below. Suspect that she has some degree of essential hypertension that is somewhat longstanding. ? Will order IV hydralazine as needed while inpatient. Recommend outpatient follow-up for further management of hypertension. 3. Suspected CKD stage 3a with mild creatinine elevation ? Creatinine 1.25 on admit, baseline creatinine appears to be around 0.9-1.1. Patient appears fairly euvolemic on exam. Was given gentle IV fluids in the ED, no need for further IV fluids at this point. Follow-up a.m. LARRY. Chronic medical conditions: ? Obesity: BMI 33 on admit. Complicates hospital course, care and prognosis. ? Hypothyroidism: TSH ordered. Continue home Synthroid. ? GERD: Continue home PPI. DVT prophylaxis: Lovenox CODE STATUS: Full code, verified Expected disposition: Home, 2 to 3 days Total clinical time spent by myself addressing the patient's medical issues, reviewing all the data, and collaborating with patient's care team: 55 minutes. Charges/Coding Visit Charges Inpatient E&M: 58621 Init Hosp L2
--- NOTE | 2023-08-19 14:25 | NURSING ---
PCU MOSTELLER HEART BLOCK, HX OF SYNCOPE
--- NOTE | 2023-08-19 14:26 | PCM.CONS.C ---
Assessment & Plan Assessment/Plan (1) Heart block: PLAN: Intermittent high-grade AV block. Patient has had a history of presyncope recently. I did discuss extensively with the patient and her the risk benefits and alternatives and I suggested to them that she would be ideally treated with a permanent pacemaker implantation. She said that she would prefer for it to be done here and it to be done by me. I did suggest that we will keep her overnight obtain an echocardiogram to assess her ventricular function and monitor her and make sure her electrolytes within fairly normal limits before proceeding with the above. They expressed understanding of the above. Thank you for allowing me to participate in the care of your patient. Please don't hesitate to call if any issues arise. HPI Consult Data Date of Consult: 08/19/23 HPI Narrative HPI Narrative: TOÑO SALAS, is a 77 F who presents to the emergency room after being sent from her primary physician's office. she apparently has had a few episodes of near syncope and was sent by the surgeon to her primary physician for further evaluation and management. As part of her workup she underwent a 7-day event monitor during which numerous episodes of significant ventricular standstill episodes were noted with the longest pause of up to 5.9 seconds. No obvious syncope was noted during this. The plan was to send her to my office for an office appointment and I suggested sending her to the emergency room. She says that this has been going on for few months she denies any chest pain or paroxysmal nocturnal dyspnea or pedal edema she does get some shortness of breath with exertion. She does not feel any palpitations but sometimes has a choking sensation in her throat. She had attributed this to some of the food that she was consuming at that time. In the emergency room she was evaluated blood work was done which was fairly normal. I did review the Holter monitor strips with the patient and her and suggested to them that in the absence of any medication causing this more than likely she needed to have a permanent pacemaker implanted. [facility] Medical History Arthritis Cold sore Difficulty swallowing Heartburn History of edema Meniere disease Non-smoker Positive colorectal cancer screening using Cologuard test Post-menopausal Thyroid disease Wears glasses Home Medications levothyroxine 50 mcg tablet 50 mcg PO DAILY thyroid 12/09/19 [History Last Taken 12/21/19] cholecalciferol (vitamin D3) 50 mcg (2,000 unit) capsule (Vitamin D3) 50 mcg PO DAILY 07/04/22 [History Last Taken Unknown] omeprazole 40 mg capsule,delayed release See Rx Instructions .Route .COMPLEX #90 caps 09/28/22 [Rx Last Taken Unknown] Allergy/AdvReac Type Severity Reaction Status Date / Time No Known Allergies Allergy Verified 08/19/23 10:54 Family History Mother Cancer Diabetes Heart disease Kidney disease Father Diabetes Heart disease CVA (cerebral vascular accident) Brother Diabetes Surgical History History of bilateral cataract extraction History of left knee surgery Hx of total knee arthroplasty Hx of total knee arthroplasty Social History Smoking Status: Never smoker alcohol intake: never substance use type: does not use ROS Constitutional Constitutional: Denies fever(s) or weight loss Eyes Eyes: Reports systems reviewed and no addt'l complaints, except as documented ENT HEENT: Reports systems reviewed and no addt'l complaints, except as documented Cardiovascular Cardiovascular: Denies chest pain at rest, chest pain with activity, dyspnea at rest, dyspnea on exertion, edema, palpitations or paroxysmal nocturnal dyspnea Respiratory/Chest Respiratory/Chest: Denies dyspnea on exertion, productive cough, shortness of breath at rest or shortness of breath with exertion Gastrointestinal Gastrointestinal: Denies change in bowel habits, nausea, vomiting or weight changes Genitourinary Genitourinary: Denies difficulty urinating Musculoskeletal Musculoskeletal: Denies joint stiffness or muscle weakness Integumentary Integumentary: Denies lesions Neurologic Neurologic: Reports dizziness; Denies syncope Psychiatric Psychiatric: Denies anxiety Endocrine Endocrinology: Denies excessive sweating or fatigue Hematologic/Lymphatic Hematologic/Lymphatic: Denies anemia Allergic/Immunologic Allergic/Immunologic: Denies seasonal rhinorrhea Physical Exam Const alert, oriented x3 and no apparent distress General Appearance: cooperative HEENT hearing grossly normal bilaterally Head and Scalp: atraumatic Eyes EOMs intact bilaterally Neck General: normal visual inspection Chest inspection of chest normal and palpation of chest normal Resp normal respiratory effort Auscultation: clear to auscultation bilaterally Cardio regular rate, regular rhythm, S1 normal heart sound and S2 normal heart sound Jugular Venous Distention: JVD GI normal to inspection, nondistended, normoactive bowel sounds Extremity normal capillary refill and no pedal edema Peripheral Pulses: Yes pulses 2+ throughout and femoral pulses present Skin no rashes or lesions noted Neuro oriented x3 and CN's II-XII intact bilaterally Psych Appearance: grossly normal and appropriate Risk Stratification Risk Stratification Applicable: No Objective Data Vital Signs: Vital Signs Temp Pulse Resp BP Pulse Ox O2 Del Method 97.8 F 61 15 140/110 H 99 Room Air 08/19/23 14:05 08/19/23 14:05 08/19/23 14:05 08/19/23 14:05 08/19/23 14:05 08/19/23 14:00 Oxygen Delivery Method Room Air Weight: 171 lb Body Mass Index (BMI) 33.4 Lab / Micro Data 08/19/23 12:00 08/19/23 12:00 Labs: Laboratory Results - last 24 hr 08/19/23 12:00: WBC 8.9, RBC 5.11, Hgb 14.4, Hct 46.2, MCV 90.4, MCH 28.2, MCHC 31.2 L, RDW Std Deviation 49.4 H, RDW Coeff of Eros 15.0 H, Plt Count 265, MPV 9.7, Immature Gran % (Auto) 0.300, Neut % (Auto) 65.5, Lymph % (Auto) 23.7, Fulton % (Auto) 8.7, Eos % (Auto) 1.2, Baso % (Auto) 0.6, Absolute Neuts (auto) 5.8, Absolute Lymphs (auto) 2.11, Nucleated RBC % 0, Sodium 140, Potassium 4.3, Chloride 106, Carbon Dioxide 26.0, Anion Gap 8, BUN 23 H, Creatinine 1.25 H, Estim Creat Clear Calc 33.60, Est GFR (MDRD) Af Amer 53 L, Est GFR (MDRD) Non-Af 44 L, BUN/Creatinine Ratio 18.4, Glucose 91, Calcium 9.6, Troponin I High Sens 3 Cardiology Labs/Tests 08/19/23 12:00: WBC 8.9, RBC 5.11, Hgb 14.4, Hct 46.2, MCV 90.4, MCH 28.2, MCHC 31.2 L, Plt Count 265, MPV 9.7, Immature Gran % (Auto) 0.300, Neut % (Auto) 65.5, Lymph % (Auto) 23.7, Fulton % (Auto) 8.7, Eos % (Auto) 1.2, Baso % (Auto) 0.6, Absolute Neuts (auto) 5.8, Nucleated RBC % 0, Sodium 140, Potassium 4.3, Chloride 106, Carbon Dioxide 26.0, Anion Gap 8, BUN 23 H, Creatinine 1.25 H, Est GFR (MDRD) Af Amer 53 L, Est GFR (MDRD) Non-Af 44 L, BUN/Creatinine Ratio 18.4, Glucose 91, Calcium 9.6 Rhythm: EKG: ECHO: Stress Test: Cardiac Cath: PCI: CT Surgery: Holter monitor: EPS: PPM: CXR: Chest CT Scan: Radiography Diagnostic Testing: Radiology Impression Chest X-Ray 08/19/23 12:10 IMPRESSION: No acute abnormality is seen. Calcific tendinitis of the left shoulder. Electronically Signed: Travis Boyle MD at 13:35 EDT ,
[2023-08-19 16:26] LABS: Magnesium 2.5 mg/dL (1.6-2.6); Thyroid Stim Hormone (TSH) 1.08 uIU/mL (0.358-3.74)
[2023-08-20] VITALS (7 sets, daily range): BP systolic 131–185; BP diastolic 58–81; PULSE 61–74; RESP 14–18; TEMP 36.1–37; O2SAT 97–100
[2023-08-20] MEDS: hydrALAZINE 20 MG/ML Vial 10 MG IV (03:27)
[2023-08-20] MEDS: 0.9% Saline Lock 10 ML Syringe IV (03:27)
[2023-08-20] MEDS: 0.9% Normal Saline (1000mL) 1,000 ML 15 ML IV (03:35)
[2023-08-20 04:56] LABS: Hematocrit 41.7 % (37-47); Hemoglobin 13.5 g/dL (12.0-15.0); Mean Corp Hgb Conc 32.4 g/dL (32-36); Mean Corpuscular Hgb 28.3 pg (27.0-32.0); Mean Corpuscular Volume 87.4 fL (81-99); Mean Platelet Vol. 9.5 fl (6.2-12.0); Platelet Count 290 K/mm3 (150-450); RBC Distribution Width SD 48.1 fl (35.1-43.9); Red Blood Count 4.77 M/mm3 (4.2-5.4); White Blood Count 7.9 K/mm3 (4.4-11.0)
[2023-08-20 05:13] LABS: Anion Gap 7 (5-15); BUN 21 mg/dL (7-18); Calcium,Total 9.4 mg/dL (8.5-10.1); Chloride 110 mmol/L (98-107); EST Glomerular Filtration Rate 57 mL/min (>60); Est Glom Filt Rate - Afr Amer 69 mL/min (>60); Glucose 113 mg/dL (74-106); Sodium Level 141 mmol/L (136-145)
[2023-08-20] MEDS: Levothyroxine 50 MCG Tablet PO (05:55)
--- NOTE | 2023-08-20 05:55 | EKG12_ITS ---
Test Reason : AM EKG Blood Pressure : / mmHG Vent. Rate : 076 BPM Atrial Rate : 076 BPM P-R Int : 258 ms QRS Dur : 090 ms QT Int : 406 ms P-R-T Axes : 067 -31 034 degrees QTc Int : 456 ms Sinus rhythm with 1st degree A-V block Left axis deviation Abnormal ECG When compared with ECG of 19-AUG-2023 11:37, MANUAL COMPARISON REQUIRED, DATA IS UNCONFIRMED Confirmed by Christo Kim ([id number]), publishing editor SHADI DAVIS ([id number]) on 08/21/2023 11:09:13 AM Referred By: JEEVAN Confirmed By:Christo Kim
--- NOTE | 2023-08-20 08:43 | CL.IE_ITS ---
Patient: TOÑO SALAS Study Date: 08/20/2023 Performing: Francis Retana MD : 1945 Age: 77 Gender: female PROCEDURES PERFORMED [id number])INITIAL PACER INSERT+DUAL LEADS INDICATIONS Mobitz (type II) AV block PROCEDURE DETAILS The patient was brought to the Catheterization Lab in the postabsorptive nonsedated state. Informed consent was obtained prior to the procedure. Local anesthetic was given subcutaneously to the left subclavian region with Lidocaine 2%. Incision was made to the left subclavicular area. Access was achieved and a guidewire was advanced into the left subclavian vein. PPM ventricular lead was inserted / positioned to right ventricular apex. PPM ventricular lead testing performed. PPM ventricular lead testing performed. PPM atrial lead was inserted / positioned to the right atrial appendage. PPM atrial lead testing performed. The Ventricular PM lead sutured in place with 2-0 Silk. The Atrial lead sutured in place with 2-0 Silk. PPM generator was attached to the lead(s) and inserted into the pocket. PPM generator was then interrogated by the internet programmer. Device pocket was irrigated with antibiotic. Subcutaneous closure was completed with 3-0 Vicryl. Skin closure was completed with 4-0 Vicryl. Steri-strips applied to left subclavicular incision. The patient tolerated the procedure well. Estimated Blood Loss: 15 ml's IMPLANTED / EX-PLANTED DEVICES IMPLANTED DEVICE(S): PPM Ventricular lead - Marketing And Development Coordinator: [employer], Model # Ingevity ref [id number] 52cm , Serial # [id number] PPM Atrial lead - Marketing And Development Coordinator: [employer], Model # Ingevity ref 7840 45cm , Serial # [id number] PPM Generator - Marketing And Development Coordinator: [employer], Model # Essentio MRI DR Model L111 , Serial # [id number] DEVICE PARAMETERS ATRIAL LEAD PARAMETERS: P wave- 2.1 (mV) Current- 0.8 (mA) threshold- 0.5 (V) impedence- 627 (OHMS) VENTRICULAR LEAD PARAMETERS: R wave- 2.5 (mV) Current- 0.5 (mA) threshold- 0.4 (V) impedence- 816 (OHMS) DEVICE PARAMETERS: Mode- DDD Lower rate- 60 Upper rate- 130 CONCLUSIONS / RECOMMENDATIONS Device Conclusions: Successful implantation of a dual chamber pacemaker Device Recommendations: Follow up with Primary Care Physician PROCEDURE MEDICATIONS Versed 1 mg IV Fentanyl 50 mcg IV Versed 1 mg IV Fentanyl 25 mcg IV Oxygen: 2 L/min via nasal cannula Antibiotic given in appropriate timeframe. Ancef 2 Gm IV @ 08/20/2023 07:32:10 Signed By Francis Retana MD On 08/20/2023 08:42:25 Francis Retana MD
[2023-08-20] MEDS: Acetaminophen 325 MG Tablet PO (09:22)
--- NOTE | 2023-08-20 10:45 | CASEMGMT ---
RN CM Face to Face with patient for initial transition planning/care coordination assessment. RN CM introduced self and role at [facility]. Patient lying in bed, alert and oriented, at bedside. Patient willing to participate in assessment and is able to answer all questions appropriately. Care providers, pharmacy, and demographics verified. PCP: Janes Specialists: Ethan, voltage regulator assembler; Jh, surgeon; Preferred Pharmacy: [facility] Insurance: [employer]. [facility] Prescription Benefit: yes Living Will/HPOA: yes, son Garcia Mejía HPOA LNOK: , son Living Arrangements: Patient lives with in a 2 story home. Patient is independent at home and able to ambulate states. Transportation: self, DME/HHC: Patient has shower chair, raised toilet, cane, walker, grab bars, pulse ox, BP cuff at home. No previous HHC or SNF Patient wishes to discharge home, denies need for home health at this time. Patient states she has no further needs or concerns at this time. CM to follow for discharge planning needs that may arise. Disposition Plan: Patient to discharge home with family support and follow-up plans in place. Kathy LAGUERRE, RN, CM
--- NOTE | 2023-08-20 19:12 | PCM.PN.HOSP ---
Reason for Visit Reason for Visit: Diagnoses Conduction disorder, unspecified (08/19/23) Subjective Subjective Patient was seen and examined today, she had a pacemaker inserted today due to Mobitz type II AV block, she is complaining about surgical site pain but is otherwise doing okay. Patient does not have any complaints of any shortness of breath. Objective Data Objective Data Vital Signs: Vital Signs Temp Pulse Resp BP Pulse Ox O2 Del Method 97.8 F 61 16 138/59 H 100 Room Air 08/20/23 14:19 08/20/23 14:19 08/20/23 14:19 08/20/23 14:19 08/20/23 14:19 08/20/23 14:19 Oxygen Delivery Method Room Air Weight: 77.564 kg Body Mass Index (BMI) 33.4 Intake & Output: Intake and Output for Last 24 Hours 08/18/23 08/19/23 08/20/23 23:59 23:59 23:59 Intake Total 1182.5 / 1182.5 565 / 565 Balance 1182.5 / 1182.5 565 / 565 Lab / Micro Data 08/20/23 04:40 08/20/23 04:40 Labs: Laboratory Results - last 24 hr 08/20/23 04:40: WBC 7.9, RBC 4.77, Hgb 13.5, Hct 41.7, MCV 87.4, MCH 28.3, MCHC 32.4, RDW Std Deviation 48.1 H, RDW Coeff of Eros 15.0 H, Plt Count 290, MPV 9.5, Sodium 141, Potassium 4.0, Chloride 110 H, Carbon Dioxide 24.0, Anion Gap 7, BUN 21 H, Creatinine 1.00, Estim Creat Clear Calc 42.00, Est GFR (MDRD) Af Amer 69, Est GFR (MDRD) Non-Af 57 L, BUN/Creatinine Ratio 21.0 H, Glucose 113 H, Calcium 9.4 Physical Exam Const alert, oriented x3, no apparent distress, average body habitus and healthy appearing General Appearance: cooperative, well kempt and well developed Orientation / Consciousness: awake, oriented to person, oriented to place and oriented to time HEENT normocephalic, head/scalp atraumatic and moist oral mucous membranes Eyes PERRL, EOMs intact bilaterally and conjunctivae normal Neck supple, no JVD, thyroid normal and no carotid bruits General: trachea midline Resp normal respiratory effort, no retractions, no use of accessory muscles and clear to auscultation bilaterally Auscultation: Negative for rales, rhonchi or wheezes Cardio regular rate, regular rhythm, S1 normal heart sound, S2 normal heart sound, no murmurs, no rub and no gallops GI normal to inspection, nondistended, normoactive bowel sounds, soft to palpation, non-tender and non-distended Extremity no clubbing, cyanosis or edema Skin no rashes or lesions noted Neuro oriented x3, CN's II-XII intact bilaterally, moves all extremities, no focal motor deficits and no sensory deficits noted Sensorium / Orientation: awake and alert Speech: speech normal Psych affect normal Assessment & Plan Assessment/Plan (1) Second degree AV block, Mobitz type II: PLAN: Plan 1. Mobitz type II secondary AV block-status post pacemaker insertion today, patient will be observed on telemetry, she will be reevaluated tomorrow for possible discharge #2 hypothyroidism-patient is on Synthroid #3 GERD-patient is on omeprazole Total clinical time spent by myself addressing the patient's medical issues, reviewing all of her data, and collaborating with the patient's care team: 25-minute Charges/Coding Visit Charges Inpatient E&M: [id number] [facility] L1
[2023-08-20] MEDS: MELATONIN 3 MG TABLET PO (22:26)
[2023-08-21] MEDS: Acetaminophen 325 MG Tablet PO (03:15)
[2023-08-21 03:18] VITALS: BP 156/61; PULSE 60; RESP 18; TEMP 36.7; O2SAT 99
[2023-08-21] MEDS: Levothyroxine 50 MCG Tablet PO (05:15)
--- NOTE | 2023-08-21 05:55 | RAD_ITS ---
INDICATION: Post permanant ICD/Pacemaker -- inspiration/expiration. Arms Down. Wet read to MD EXAMINATION/TECHNIQUE: X-RAY - XR Chest 3 Views COMPARISON: 08/19/2023 chest radiograph. Findings: Frontal and lateral views of the chest, to include inspiratory and expiratory views.. LUNG PARENCHYMA: No acute focal airspace disease or mass lesion. No obvious air trapping. PLEURA: No pleural effusion. No pneumothorax. HEART/GREAT VESSELS: Cardiomediastinal silhouette is borderline enlarged in this portable examination. Left chest multilead pacemaker device in place. BONES: Osseous structures are unremarkable for age. RAD/Chest 3 View IMPRESSION: Chest with no acute disease. Electronically Signed: Hemal Shin MD at 7:01 EDT ,
[2023-08-21 08:35] VITALS: O2SAT 96
--- NOTE | 2023-08-21 08:52 | PN.CARD_ITS ---
Subjective Subjective Patient seen and evaluated. Objective Data Vital Signs: Vital Signs Temp Pulse Resp BP Pulse Ox O2 Del Method 98.0 F 60 18 156/61 H 99 Room Air 08/21/23 03:18 08/21/23 03:18 08/21/23 03:18 08/21/23 03:18 08/21/23 03:18 08/21/23 03:18 Oxygen Delivery Method Room Air Weight: 171 lb Body Mass Index (BMI) 33.4 Intake & Output: Intake and Output for Last 24 Hours 08/19/23 08/20/23 08/21/23 23:59 23:59 23:59 Intake Total 1182.5 / 1182.5 565 / 565 Output Total 750 / 750 225 / 225 Balance 1182.5 / 1182.5 -185 / -185 -225 / -225 Lab / Micro Data 08/20/23 04:40 08/20/23 04:40 Cardiology Labs/Tests Rhythm: EKG: ECHO: Stress Test: Cardiac Cath: PCI: CT Surgery: Holter monitor: EPS: PPM: CXR: Chest CT Scan: Radiography Diagnostic Testing: Radiology Impression Chest X-Ray 08/21/23 05:55 IMPRESSION: Chest with no acute disease. Electronically Signed: Hemal Shin MD at 7:01 EDT , Physical Exam Const alert, oriented x3, no apparent distress, average body habitus and healthy appearing General Appearance: cooperative, well kempt and well developed Orientation / Consciousness: awake, oriented to person, oriented to place and oriented to time HEENT normocephalic, head/scalp atraumatic and moist oral mucous membranes Eyes PERRL, EOMs intact bilaterally and conjunctivae normal Neck supple, no JVD, thyroid normal and no carotid bruits General: trachea midline Resp normal respiratory effort, no retractions, no use of accessory muscles and clear to auscultation bilaterally Auscultation: Negative for rales, rhonchi or wheezes Cardio regular rate, regular rhythm, S1 normal heart sound, S2 normal heart sound, no murmurs, no rub and no gallops GI normal to inspection, nondistended, normoactive bowel sounds, soft to palpation, non-tender and non-distended Extremity no clubbing, cyanosis or edema Skin no rashes or lesions noted Neuro oriented x3, CN's II-XII intact bilaterally, moves all extremities, no focal motor deficits and no sensory deficits noted Sensorium / Orientation: awake and alert Speech: speech normal Psych affect normal Assessment & Plan Assessment/Plan (1) Heart block: PLAN: Intermittent high-grade AV block. Status post high-grade AV block and pacemaker placement. Patient is doing well. Interrogation demonstrates normal function. Chest x-ray in good position. Will discharge for outpatient follow-up. Thank you for allowing me to participate in the care of your patient. Please do n't hesitate to call if any issues arise.
--- NOTE | 2023-08-21 08:56 | DCINST_ITS ---
Discharge Instructions Diet Discharge Diet: No restrictions (as you feel able. No excessive stretching. No lifting your arm over your head (keep elbow below shoulder level) until seen for your pacemaker check. Do not lift your elbow away from your side until you are seen for your first visit. Keep the arm sling on if it helps remind you not to lift your arm.) Activity Discharge Activity: May Not Drive May shower in (days): 2 Additional Activity Instructions:: May shower or bathe on [day 3]. Do not scrub the incision or soak in the tub. Just wash with soap and let the water run over the incision. Gently pat dry with towel. Medications: Take your pain medication as directed. Refer to your discharge instruction sheet for a list of medications you are to take. Dressing / Incision Call your doctor if your incision/area has: Continuous Slow Oozing, Sudden Increased Bleeding, Increased Pain/ Swelling, Increased Redness, Foul Smelling Discharge and Swelling at the incision site Call your doctor if you observe: Fever of 101 or Higher, Shortness of breath, Dizziness, Fainting spells, Swelling in the ankles, Chest pain, Prolonged hiccupping and Increased palpitations (irregular heartbeat) Suture Line Care: Avoid Pulling/Pushing and Avoid Pinching/Bending Additional Dressing/Incision Instructions:: When dressing is removed, wash and dry incision. Keep covered with a light bandage if it is rubbing against your clothing. Do not cover the incision with an airtight bandage. Change the bandage daily. Do not remove steri strips. The strips will fall off on their own. Follow Up Care Please Follow Up With: Francis Retana MD When: Pacer follow-up on August 26 at 10 AM Test Results: Test results from this visit will be discussed in further detail at your follow- up appointment, if applicable. Discharge Plan Admission Admit Date/Time: 08/19/23 13:56 Attending Provider: Mata Bray Primary Care Provider: Vamsi Mrarero Consulting Providers: Francis Retana; Dougie Guidry Discharge Orders/Prescriptions Prescriptions: No Action levothyroxine 50 MCG tablet 50 mcg PO DAILY cholecalciferol (vitamin D3) [Vitamin D3] 50 mcg (2,000 unit) Capsule 50 mcg PO DAILY omeprazole 40 mg capsule,delayed release(DR/EC) See Rx Instructions .ROUTE .COMPLEX Qty: 90 3RF Dose Instruction: take 1 capsule by mouth once daily Rx Instructions: take 1 capsule by mouth once daily Referrals / Follow Up: Vamsi Marrero MD [Primary Care Provider] - Disposition Disposition (needs filled in before D/C Order can be placed): Home, Self Care
[2023-08-21 08:59] VITALS: BP 139/59; PULSE 67; RESP 18; TEMP 37.1; O2SAT 96
--- NOTE | 2023-08-21 09:33 | PHA.DC.MR.R ---
Pharmacy [place] Med Reconciliation Pharmacy Service has performed discharge medication reconciliation for this patient. No new medications at time of wv review. Medications reviewed are from previously reported home medications. The patient's discharge medication list was reviewed for discrepancies and discrepancies were resolved. Medications at Discharge Home Medications levothyroxine 50 mcg tablet 50 mcg PO DAILY thyroid 12/09/19 cholecalciferol (vitamin D3) 50 mcg (2,000 unit) capsule (Vitamin D3) 50 mcg PO DAILY 07/04/22 omeprazole 40 mg capsule,delayed release See Rx Instructions .Route .COMPLEX #90 caps 09/28/22
--- NOTE | 2023-08-21 09:43 | CASEMGMT ---
Patient has order for discharge. RN CM in to discuss needs at discharge. Patient denies needs or help at discharge. Patient and deny further questions or concerns.
--- NOTE | 2023-08-21 11:31 | DCINST_ITS ---
Discharge Instructions Diet Discharge Diet: No restrictions (as you feel able. No excessive stretching. No lifting your arm over your head (keep elbow below shoulder level) until seen for your pacemaker check. Do not lift your elbow away from your side until you are seen for your first visit. Keep the arm sling on if it helps remind you not to lift your arm.) Activity Discharge Activity: - (Follow post pacemaker insertion instructions) May shower in (days): 2 Weight Bearing Status: Full weight bearing Additional Activity Instructions:: May shower or bathe on [day 3]. Do not scrub the incision or soak in the tub. Just wash with soap and let the water run over the incision. Gently pat dry with towel. Medications: Take your pain medication as directed. Refer to your discharge instruction sheet for a list of medications you are to take. Dressing / Incision Call your doctor if your incision/area has: Continuous Slow Oozing, Sudden Increased Bleeding, Increased Pain/ Swelling, Increased Redness, Foul Smelling Discharge and Swelling at the incision site Call your doctor if you observe: Fever of 101 or Higher, Shortness of breath, Dizziness, Fainting spells, Swelling in the ankles, Chest pain, Prolonged hiccupping and Increased palpitations (irregular heartbeat) Suture Line Care: Avoid Pulling/Pushing and Avoid Pinching/Bending Additional Dressing/Incision Instructions:: When dressing is removed, wash and dry incision. Keep covered with a light bandage if it is rubbing against your clothing. Do not cover the incision with an airtight bandage. Change the bandage daily. Do not remove steri strips. The strips will fall off on their own. Follow Up Care Please Follow Up With: Francis Retana MD Test Results: Test results from this visit will be discussed in further detail at your follow- up appointment, if applicable. Discharge Plan Admission Admit Date/Time: 08/19/23 13:56 Primary Reason for Your Visit: Pacemaker insertion Attending Provider: Mata Bray Primary Care Provider: Vamsi Marrero Consulting Providers: Francis Retana; Dougie Guidry Discharge Orders/Prescriptions Prescriptions: Continued levothyroxine 50 MCG tablet 50 mcg PO DAILY cholecalciferol (vitamin D3) [Vitamin D3] 50 mcg (2,000 unit) Capsule 50 mcg PO DAILY omeprazole 40 mg capsule,delayed release(DR/EC) See Rx Instructions .ROUTE .COMPLEX Qty: 90 3RF Dose Instruction: take 1 capsule by mouth once daily Rx Instructions: take 1 capsule by mouth once daily Referrals / Follow Up: Vamsi Marrero MD [Primary Care Provider] - See Referral Note (At your next scheduled visit) Francis Retana MD [Med Staff - Active Staff] - See Referral Note (as directed) Disposition Disposition (needs filled in before D/C Order can be placed): Home, Self Care
--- NOTE | 2023-08-21 11:44 | DS.PCM_ITS ---
Providers Date of Admission: 08/19/23 Date of Discharge: 08/21/23 Primary Care Physician: Dr. Vamsi Marrero MD Consultations 08/19/23 15:29 Consult: Cardiology Routine Consulting Provider: Francis Retana Reason for Consult: heart block EMERGENT Consult: No MD Notified: Yes Date Notified: 08/19/23 Time Notified: 16:45 Method of Notification: Text Reason For Visit: HEART BLOCK Diagnosis Discharge Diagnosis (1) Heart block: Status: Acute Code(s): I45.9 - Conduction disorder, unspecified Plan 1. Mobitz type II secondary AV block-status post pacemaker insertion today, patient will be observed on telemetry, she will be reevaluated tomorrow for possible discharge #2 hypothyroidism-patient is on Synthroid #3 GERD-patient is on omeprazole Total clinical time spent by myself addressing the patient's medical issues, reviewing all of her data, and collaborating with the patient's care team: 25- minute Medications at Discharge Home Medications levothyroxine 50 mcg tablet 50 mcg PO DAILY thyroid 12/09/19 cholecalciferol (vitamin D3) 50 mcg (2,000 unit) capsule (Vitamin D3) 50 mcg PO DAILY 07/04/22 omeprazole 40 mg capsule,delayed release See Rx Instructions .Route .COMPLEX #90 caps 09/28/22 Hospital Course Operations None Procedures - (Cardiac pacemaker) Summary of Care Provided Minutes Spent on Discharge: 31 Hospital Course: This 77-year-old white female was seen in the emergency room at [facility] after being sent in at the request of her primary care physician and workforce development vice president for possible pacemaker insertion, patient wore Holter monitor for 7 days after she had some choking episodes that cause syncope, results were sent to her PCP and there were findings concerning for second- degree AV block. Cardiology recommended the patient come to the emergency room to be evaluated for pacemaker. EKG obtained showed sinus rhythm with a first- degree AV block. Patient was admitted to PCU, she underwent insertion of a pacemaker on 08/20/2023, there were no untoward events and the patient did well a fter surgery. On 08/21/2023, patient was seen and examined: On examination she appeared in good health and spirits, she does not appear to be in any distress. Vital signs as documented. Skin warm and dry and without overt rashes. Neck without JVD, thyroid appears normal, trachea is midline, neck is supple. Lungs clear, normal air movement was noted. Heart exam notable for regular rhythm, normal sounds and absence of murmurs, rubs or gallops. Abdomen unremarkable and without evidence of organomegaly, masses, or abdominal aortic enlargement, bowel sounds are present in all 4 quadrants, no abdominal tenderness was noted. Extremities nonedematous, no cyanosis was noted, no clubbing was noted. Neuro: Cranial nerves II through XII are grossly intact, no focal motor deficits were noted, sensation to light touch and pinprick is intact, motor exam 5/5 throughout. Psych: Patient is alert and oriented x3, she does not appear anxious or depressed, she does not appear agitated. Patient appears stable for discharge home on 08/21/2023. Weight / BMI Weight Weight: 77.564 kg Body Mass Index (BMI) 33.4 ABG / Lab / Microbiology Data 08/20/23 04:40 08/20/23 04:40 Radiography Diagnostic Testing: Radiology Impression Chest X-Ray 08/21/23 05:55 IMPRESSION: Chest with no acute disease. Electronically Signed: Hemal Shin MD at 7:01 EDT , D/C Instructions Discharge Diet: No restrictions (as you feel able. No excessive stretching. No lifting your arm over your head (keep elbow below shoulder level) until seen for your pacemaker check. Do not lift your elbow away from your side until you are seen for your first visit. Keep the arm sling on if it helps remind you not to lift your arm.) May shower in (days): 2 Weight Bearing Status: Full weight bearing Additional Activity Instructions: May shower or bathe on [day 3]. Do not scrub the incision or soak in the tub. Just wash with soap and let the water run over the incision. Gently pat dry with towel. Medications: Take your pain medication as directed. Refer to your discharge instruction sheet for a list of medications you are to take. Call your doctor if your incision/area has: Continuous Slow Oozing, Sudden Increased Bleeding, Increased Pain/ Swelling, Increased Redness, Foul Smelling Discharge and Swelling at the incision site Call your doctor if you observe: Fever of 101 or Higher, Shortness of breath, Dizziness, Fainting spells, Swelling in the ankles, Chest pain, Prolonged hiccupping and Increased palpitations (irregular heartbeat) Suture Line Care: Avoid Pulling/Pushing and Avoid Pinching/Bending Additional Dressing/Incision Instructions: When dressing is removed, wash and dry incision. Keep covered with a light bandage if it is rubbing against your clothing. Do not cover the incision with an airtight bandage. Change the bandage daily. Do not remove steri strips. The strips will fall off on their own. Please Follow Up With: Francis Retana MD When: Pacer follow-up on August 26 at 10 AM Meaningful Use Info Meaningful Use Diagnoses (Choose all that apply): None applicable Discharge Plan Admission Admit Date/Time: 08/19/23 13:56 Primary Reason for Your Visit: Pacemaker insertion Attending Provider: Mata Bray Primary Care Provider: Vamsi Marrero Consulting Providers: Francis Retana; Dougie Guidry Discharge Orders/Prescriptions Prescriptions: Continued levothyroxine 50 MCG tablet 50 mcg PO DAILY cholecalciferol (vitamin D3) [Vitamin D3] 50 mcg (2,000 unit) Capsule 50 mcg PO DAILY omeprazole 40 mg capsule,delayed release(DR/EC) See Rx Instructions .ROUTE .COMPLEX Qty: 90 3RF Dose Instruction: take 1 capsule by mouth once daily Rx Instructions: take 1 capsule by mouth once daily Referrals / Follow Up: Francis Retana MD [Med Staff - Active Staff] - See Referral Note (as directed) Vamsi Marrero MD [Primary Care Provider] - See Referral Note (At your next scheduled visit) Disposition Disposition (needs filled in before D/C Order can be placed): Home, Self Care Charges/Coding Visit Charges Inpatient E&M: 31694 Disch Hosp >30min
== END 2023-08-21 12:13 | disposition home or self-care (01) | DRG 244 ==
LOC: ED 13:22 → PCU 14:24
PROVIDERS: Admitting Provider Hospitalist; Emergency Provider Emergency Medicine; PCP Family Medicine; Visit Provider Internal Medicine
DX: I44.1 Atrioventricular block, second degree (principal); E03.9 Hypothyroidism, unspecified; N18.31 Chronic kidney disease, stage 3a; I12.9 Hypertensive chronic kidney disease with stage 1 through stage 4 chronic kidney disease, or unspecified chronic kidney disease; M53.3 Sacrococcygeal disorders, not elsewhere classified; K21.9 Gastro-esophageal reflux disease without esophagitis; E66.9 Obesity, unspecified; Z68.33 Body mass index [BMI] 33.0-33.9, adult; Z79.890 Hormone replacement therapy; Z79.899 Other long term (current) drug therapy; Z95.0 Presence of cardiac pacemaker
CPT/HCPCS: 33208; 36415; 71045; 71047; 72202; 72220; 80048; 80053; 83735; 84443; 84484; 85025; 85027; 86618; 86658; 93005; 93306; 99152; 99153; 99285; J7030; J7050; Q9957; A4216; C1894; C8929

== ENCOUNTER → 2023-08-19 | Outpatient (CLI) | payer MEDICARE, SELFPAY ==
--- NOTE | 2023-08-19 10:14 | RAD_ITS ---
INDICATION: SACRAL PAIN EXAMINATION/TECHNIQUE: X-RAY - XR Sacroiliac Joints Less Than 3 Views COMPARISON: No relevant prior comparison study available FINDINGS: SACRUM/COCCYX: No demonstrated acute changes. Note that overlapping bowel shadows may however obscure fine detail in the frontal view. Moderate narrowing of the left hip joint and mildly on the right side. Degenerative changes in the visualized lower lumbar spine. SACRO-ILIAC JOINTS: The articular structures are unremarkable. SOFT TISSUES: No soft tissue swelling or gas. RAD/S-I Jts 3 or More Views IMPRESSION: Unremarkable sacroiliac joints. Electronically Signed: Jose Carlos Goodman MD at 10:44 EDT ,
--- NOTE | 2023-08-19 10:15 | RAD_ITS ---
INDICATION: SACRAL PAIN EXAMINATION/TECHNIQUE: X-RAY - XR Sacrum/Coccyx Min 2 Views COMPARISON: No relevant prior comparison study available FINDINGS: SACRUM/COCCYX: No displaced fracture, destructive or sclerotic lesions. Note that overlapping bowel shadows may however obscure fine detail in the frontal view. SACRO-ILIAC JOINTS: The articular structures are unremarkable. Narrowing of the lower lumbar spine disc spaces. Grade 1 anterolisthesis of L4 over L5 and L5 over S1. SOFT TISSUES: No soft tissue swelling or gas. RAD/Sacrum-Coccyx min 2 Views IMPRESSION: 1. Degenerative changes of the lower lumbar spine. 2. No demonstrated acute osseous changes. Electronically Signed: Jose Carlos Goodman MD at 10:38 EDT ,
[2023-08-19 12:15] LABS: ALB/GLOB Ratio 0.8 RATIO (0.9-2.4); AST(SGOT) 20 U/L (15-37); Alanine Aminotransfer ALT/SGPT 18 U/L (13-56); Albumin, Serum 3.7 g/dL (3.2-5.0); Alkaline Phosphatase 58 U/L (45-117); Anion Gap 10 (5-15); BUN 22 mg/dL (7-18); Calcium,Total 9.5 mg/dL (8.5-10.1); Chloride 106 mmol/L (98-107); Creatinine, Serum 1.16 mg/dL (0.55-1.02); EST Glomerular Filtration Rate 48 mL/min (>60); Est Glom Filt Rate - Afr Amer 58 mL/min (>60); Globulin 4.5 g/dL (2.2-4.2); Glucose 100 mg/dL (74-106); Potassium 4.3 mmol/L (3.5-5.1); Protein, Total 8.2 g/dL (6.4-8.2); Sodium Level 139 mmol/L (136-145)
[2023-08-22 16:09] LABS: Coxsackie A Type 16 IgM Negative titer (Neg:<1:10); Coxsackie A Type 24 IgM Negative titer (Neg:<1:10); Coxsackie A Type 7 IgM Negative titer (Neg:<1:10); Coxsackie A Type 9 IgM Negative titer (Neg:<1:10); Lyme Scn Total Ab w/Rflx Negative (Negative)
== END | disposition home or self-care (01) ==
PROVIDERS: PCP Family Medicine; Referring Provider Family Medicine; Visit Provider Family Medicine
DX: M53.3 Sacrococcygeal disorders, not elsewhere classified (principal); I45.9 Conduction disorder, unspecified
CPT/HCPCS: 72202; 72220; 80053; 86618; 86658

== ENCOUNTER → 2023-09-01 | Outpatient (CLI) | payer MEDICARE, SELFPAY ==
[2023-09-01 18:43] LABS: Bacteria 0 SEEN /hpf (None Seen); Mucous, Urine 0 SEEN /hpf (<or=2+); Red Blood Cells-Urine 0 SEEN /hpf (0-5)
[2023-09-01 19:13] LABS: Color, Urine Yellow (Yellow); Glucose, Dipstick Normal (Normal); Ketone-Dipstick 5 mg/dl (Negative); Leukocyte Esterase-Dipstick 100 /ul (Negative); Nitrite-Dipstick Negative (Negative); Occult Blood-Urine Negative /ul (Negative); Protein-Dipstick 15 mg/dl (Negative); Urine Bilirubin Dipstick Negative (Negative); Urine Clarity Sl. Cloudy (Clear); Urine Urobilinogen 1 mg/dl (Normal)
[2023-09-01 19:46] LABS: Squamous Epithelial Cells - UA 0-5 SEEN /hpf (5-10); White Blood Cells 5-10 SEEN /hpf (0-5)
== END | disposition home or self-care (01) ==
PROVIDERS: Physician Assistant; PCP Family Medicine; Referring Provider Nurse Practitioner Family; Visit Provider Nurse Practitioner Family
DX: N39.0 Urinary tract infection, site not specified (principal)
CPT/HCPCS: 81001; 87086

== ENCOUNTER → 2023-09-11 | Outpatient (CLI) | payer MEDICARE, SELFPAY ==
[2023-09-11 15:22] LABS: Absolute Lymphocyte Count 1.93 X10^3/uL (0.83-4.51); Absolute Neutrophil Count 6.4 X10^3/uL (2.0-7.7); Basophil# 0.04 X10^3/uL; Basophil% 0.4 % (0-1); Eosinophil# 0.25 X10^3/uL; Eosinophils% 2.7 % (0-5); Hematocrit 41.8 % (37-47); Hemoglobin 13.2 g/dL (12.0-15.0); Lymphocyte # 1.93 X10^3/ul (0.83-4.51); Lymphocyte % 20.7 % (19-41); Mean Corp Hgb Conc 31.6 g/dL (32-36); Mean Corpuscular Hgb 28.4 pg (27.0-32.0); Mean Corpuscular Volume 89.9 fL (81-99); Mean Platelet Vol. 9.9 fl (6.2-12.0); Monocyte# 0.74 X10^3/uL; Monocyte% 7.9 % (0-10); NRBC Flagged by Analyzer 0 % (0-5); Neutrophil # 6.36 X10^3/uL (2.7-7.7); Neutrophil % 68.1 % (47-70); Platelet Count 288 K/mm3 (150-450); RBC Distribution Width CV 15.9 % (11.6-14.6); RBC Distribution Width SD 52.1 fl (35.1-43.9); Red Blood Count 4.65 M/mm3 (4.2-5.4); White Blood Count 9.3 K/mm3 (4.4-11.0)
[2023-09-11 16:46] LABS: ALB/GLOB Ratio 0.8 RATIO (0.9-2.4); AST(SGOT) 20 U/L (15-37); Alanine Aminotransfer ALT/SGPT 23 U/L (13-56); Albumin, Serum 3.6 g/dL (3.2-5.0); Alkaline Phosphatase 69 U/L (45-117); Anion Gap 6 (5-15); BUN 21 mg/dL (7-18); BUN/Creat Ratio 19.3 RATIO (10-20); Calcium,Total 9.6 mg/dL (8.5-10.1); Chloride 105 mmol/L (98-107); Creatinine, Serum 1.09 mg/dL (0.55-1.02); EST Glomerular Filtration Rate 51 mL/min (>60); Est Glom Filt Rate - Afr Amer 62 mL/min (>60); Globulin 4.4 g/dL (2.2-4.2); Glucose 98 mg/dL (74-106); Sodium Level 138 mmol/L (136-145); Thyroid Stim Hormone (TSH) 1.37 uIU/mL (0.358-3.74)
== END | disposition home or self-care (01) ==
LOC: MTLAB 12:59
PROVIDERS: PCP Family Medicine; Referring Provider Family Medicine; Visit Provider Family Medicine
DX: E66.01 Morbid (severe) obesity due to excess calories (principal); E03.9 Hypothyroidism, unspecified; Z95.0 Presence of cardiac pacemaker; Z68.36 Body mass index [BMI] 36.0-36.9, adult
CPT/HCPCS: 36415; 80053; 84443; 85025

== ENCOUNTER 2023-10-09 09:00 | Outpatient (RCR) | payer MEDICARE, SELFPAY ==
--- NOTE | 2023-09-10 14:30 | HP.PTEVAL ---
Patient's Visit Information Visit Information Visit Information: TOÑO SALAS is a 77 year old F referred to Physical Therapy by Dr. Vamsi Marrero MD with a diagnosis of LOW BACK PAIN ,BUTTOCK PAIN. Date of Evaluation: 09/10/23 Physical Therapist: Chu Mcleod PT, Cert MDT, OCS Visit Plan Frequency: 2x /Week Duration: 4 Weeks Plan: PRECAUTIONS : PACEMAKER ON July( PACEMAKER PRECAUTION) PT INTERVENTIONS DLS ,POSTURAL EX'S ,LE FLEXABILITY ,US AND CP/MHP Subjective Subjective: This 77 y/o female presents to physical therapy with lumbar pain . Patient has had back pain for ~ [address] . Patient seen DR vásquez PT . Patient had x-rays of SI joint. Patient has tried massage. Patient has had PT 2 years ago. Patient has 2 bilateral TKA . Patient also has other comorbities contribute to condition ,recently had pacemaker Mach 2023 due to bradycardia ,syncope . Patient does Aquatic Therapy but has not doesn't since Pacemaker. Patient pain located left sacral ,buttuck . Aggravating factors ,standing < 15 mins ,walking 1/4 mile ,bending and lifting. Alleviating rest. Bowel/bladder-. Coughing/sneezing-. Patient has paresthesia/tingling.Patient sleeps okay. Patient condition affects QOL and housework tasks . Patient goal to decrease pain. SOCAIL: VOCATION: RETIRED Pain Bilateral Back: Pain Intensity (Out of 10): 4 Pain Intensity Range: 10 Objective Objective: POSTURE: mild forward posture NEURO: denies paresthesia/tingling ,reflexes L3-4 ,L4-5 ,L5-S1 2/3 PALAPTION: tender SI/LS ,left FLEXABILITY: min loss piriformis MMT: quads/hams 4/5 ,hip flexion 4/5 ,hip abduction 4-/5 ,ankle 4/5 LUMBAR ROM: flexion min /mod loss ,extension mod/severe loss ,side glides min loss PROM: hip IR 10 DEGREES Special Tests L/S Slump test left side: Negative L/S Slump test right side: Negative L/S Left Straight Leg Raise: Negative L/S Right Straight Leg Raise: Negative Lumbar Standing: Flexion - Mechanical Response: No effect Lumbar Standing: Flexion - Symptoms During Testing: Increases Lumbar Standing: Flexion - Symptoms After Testing: No worse Lumbar Standing: Extension - Mechanical Response: No effect Lumbar Standing: Extension - Symptoms During Testing: Increases Lumbar Standing: Extension - Symptoms After Testing: No worse Lumbar Standing: Right Side Glides - Mechanical Response: No effect Lumbar Standing: Right Side [place] - Symptoms During Testing: No effect Lumbar Standing: Right Side [place] - Symptoms After Testing: No effect Lumbar Standing: Left Side [place] - Mechanical Response: No effect Lumbar Standing: Left Side [place] - Symptoms During Testing: No effect Lumbar Standing: Left Side [place] - Symptoms After Testing: No effect Balance/Special Test Scores Oswestry Low Back Score: 29 Goals Goal 1:: Patient to be I with HEP Goal Time Frame: 4-6 Weeks Goal 2:: Patient to demonstrate 50% improvement with less pain and improved function. Goal Time Frame: 4-6 Weeks Goal 3:: Patient to improve Lumbar ROM for function of recovery to put on shoes Goal Time Frame: 4-6 Weeks Goal 4:: Patient to improve back oswestry score by 5 points to improve QOL Goal Time Frame: 4-6 Weeks Goal 5:: Patient to improve walking/standing by 15 mins to improve QOL and function with housework tasks Goal Time Frame: 4-6 Weeks Rehabilitation Potential Physical Therapy Diagnosis: This patient has lumbar pain tender SI ,symptoms worse with motion testing and positioning and worse with walking/standing affects housework tasks and ADLS thus benefit from skilled PT Rehabilitation Potential: Good Anticipated Interventions Patient/Client Instruction: Educate patient on: Condition and Plan of Care For the Purpose of:: To decrease pain, To decrease swelling/inflammation, To improve muscle performance and motor function, To improve ability to perform ADL's, To increase tolerance to activity/condition/position, To improve ability of physical actions for home/community/work/leisure, To improve health of tissue, To decrease soft tissue restriction and To increase flexibility/ROM Therapeutic Exercise to Include: Strength training, Endurance training, Body mechanics, Postural training, Flexibilty training and Dynamic Lumbar Stabilization For the Purpose of:: To decrease pain, To increase ROM, To improve muscle performance and motor function, To improve ability to perform ADL's, To increase tolerance to activity/condition/position, To improve ability of physical actions for home/community/work/leisure, To improve health of tissue, To decrease soft tissue restriction, To increase flexibility/ROM and To improve tolerance to ADL's Cryotherapy (ice pack, ice massage): Yes Thermo therapy (hot pack): Yes Ultrasound (thermal/non thermal): Yes For the Purpose of:: To decrease pain, To decrease swelling/inflammation, To increase ROM, To improve nutrient delivery to tissue, To increase oxygenation perfusion, To improve health of tissue and To decrease soft tissue restriction Text: Thank you for the opportunity to evaluate your patient. For Medicare and Medicare HMO plans, please review the plan of care and approve it. It will need to be FAXED BACK to us at [phone] for Medicare purposes. For Medicare only, by signing this I certify the plan of care. Please let me know if there are questions or concerns regarding this plan of care. Physician Signature: Date:
--- NOTE | 2023-10-09 09:26 | HP.PTDCSUM ---
Discharge Summary D/C summary: It has been my pleasure to treat TOÑO SALAS referred by Dr. Vamsi Marrero MD, with the diagnosis of LOW BACK PAIN ,BUTTOCK PAIN for a total of 9 visit(s). Discharge Date: 10/09/23 Please see the following information for a summary of their discharge status. Subjective Subjective: Doing a lot better Pain Bilateral Back: Pain Intensity (Out of 10): 0 Overall Improvement % Improvement: 85 Objective Objective/Function: POSTURE: mild forward posture NEURO: denies paresthesia/tingling ,reflexes L3-4 ,L4-5 ,L5-S1 2/3 PALAPTION: unremarkable FLEXABILITY: min loss piriformis MMT: quads/hams 4/5 ,hip flexion 4/5 ,hip abduction 4-/5 ,ankle 4/5 LUMBAR ROM: flexion min ,extension min loss ,side glides min loss PROM: hip IR 15 DEGREES Goals Goal 1:: Patient to be I with HEP Goal Progress: Goal Met Goal 2:: Patient to demonstrate 50% improvement with less pain and improved function. Goal Progress: Goal Met Goal 3:: Patient to improve Lumbar ROM for function of recovery to put on shoes Goal Progress: Goal Met Goal 4:: Patient to improve back oswestry score by 5 points to improve QOL Goal Progress: Goal Met Goal 5:: Patient to improve walking/standing by 15 mins to improve QOL and function with housework tasks Goal Progress: Goal Met Plan Plan: D/C TO HEP D/C Information Discharge Comments: HEP d/c sentence: If there are questions or concerns regarding this patient's physical therapy, please feel free to call me at [phone]. Thank you for the referral of this patient. Sincerely, Chu Mcleod, PT, Cert MDT, OCS Balance/Gait/Functional tests Balance/Special Test Scores Oswestry Low Back Score: 7 Improvement % Improvement: 85
== END 2023-10-09 12:37 | disposition home or self-care (01) ==
LOC: PT 09:00
PROVIDERS: PCP Family Medicine; Referring Provider Family Medicine; Visit Provider Family Medicine
DX: M54.50 Low back pain, unspecified (principal); M25.559 Pain in unspecified hip
CPT/HCPCS: 97035; 97110; 97162; 97530

== ENCOUNTER → 2023-11-13 | Outpatient (CLI) | payer MEDICARE, SELFPAY | END | disposition home or self-care (01) | LOC: LABSPEC 12:39 | PROVIDERS: PCP Family Medicine; Referring Provider Physician Assistant Surgical; Visit Provider Physician Assistant Surgical | DX: N39.0 Urinary tract infection, site not specified (principal) | CPT/HCPCS: 87086; 87088; 87186 ==

== ENCOUNTER 2023-11-25 06:28 | Day surgery (SDC) | payer MEDICARE, SELFPAY ==
[2023-11-25] VITALS (7 sets, daily range): BP systolic 99–184; BP diastolic 49–77; PULSE 61–71; RESP 16; TEMP 36.1–36.6; O2SAT 94–100; BMI 34.6
--- NOTE | 2023-11-25 | IMM_PTH ---
PATIENT: TOÑO SALAS LOC: EN U#:[id number] AGE/SX: 78/F ROOM: RE11/25/[address]: Dr. Sandip Peñaloza MD : 1945 BED: DIS: 11/25/2023 SPEC #: [id number] RECD: 11/25/23 12:13 STATUS: JAMAAL RELuis #: [id number] JOI: 11/25/23 00:[address]: Sandip Peñaloza DEPT: IMMUNOHISTOCHEMISTRY RECD BY: Galileo Isidro ENTERED: 11/25/23 12:14 SP TYPE: IMMUNO OTHR DR: Dr. Vamsi Marrero MD Tissues: A - Stomach, NOS C - Esophagus, NOS Procedures: H Pylori (initial) P53 (initial) KI-67 (add) PHYSICIAN & INSTITUTION [place] [id number] SPECIMEN INFORMATION: Tissue Source: A. Antrum, C. Distal esophagus Clinical Info: Hiatal hernia with GERD, Carter's esophaus Specimen Number: [id number] A, C CPT code: 95182p4,40563 METHODOLOGY: Deparaffinized sections of prefer/formalin-fixed tissue or PAP/DQ stained slides are incubated with monoclonal/polyclonal antibodies/oligonucleotide probes. Localization is made via biotin free immunoperoxidase method. Appropriate controls are performed and reacted as expected. Results on target cell population are indicated in the following table: RESULTS: ANTIBODY / CLONE RESULT BLOCK A H Pylori (polyclonal) negative BLOCK C P53 (DO-7) positive, focal (wild type pattern) Ki-67 (30-9) positive, low These tests were developed and their performance characteristics determined by [facility]. They may not have been cleared or approved by the U.S. Food and Drug Administration. The FDA has determined that such clearance or approval is not necessary. The above immunohistochemical/dualISH markers are ordered and reviewed by the Pathologist. INTERPRETATION: A. Antrum, biopsy: Negative for Helicobacter pylori organisms. C. Distal esophagus, biopsy: Negative for dysplasia. OTONIEL/ 11/27/2023
[2023-11-25] MEDS: Lactated Ringers 1,000 ML 15 ML IV (07:26)
--- NOTE | 2023-11-25 07:38 | PCM.PRE.AN2 ---
ASA Classification* ASA Classification ASA Classification: 2 Assessment & Plan Anesthesia* Anesthesia Assessment Anesthesia Assessment: Discussed sedation and/or anesthesia options, risks, benefits, and alternatives with patient/parents/legal guardian/POA. Questions invited. The patient/parents/legal guardian/POA seems to understand and agrees to proceed with anesthesia plan. Reviewed the physical assessment, medical history, allergy history and patient home medications list prior to surgery/procedure/anesthetic and documented any changes. Performed airway and anesthesia risk assessments. Anesthesia Type Anesthesia Type: MAC Pre-Assessment Diagnosis/Proposed Procedure Planned Operative Procedure(s): EGD Anesthesia History Anesthesia History - military administrative technician: Anesthesia History - military administrative technician Hx Hospitalization No 11/21/23 08:10 Any Problems With Anesthesia No 11/21/23 08:10 Cholinesterase deficiency No 11/21/23 08:10 You/Your Family Experience No 11/21/23 08:10 fever (hyperthermia) with Relationship Recent Exposure to Contagious No 11/25/23 07:20 Disease Does patient have nerve No 11/21/23 08:10 stimulator Patient instructed to have device shut off --Does patient have Pacemaker No 11/25/23 07:20 or ICD? When Was Last Pacemaker Check QUESTION #4 FULL TEXT: You/Your Family Experience fever (hyperthermia) with Anesthesia Last Oral Intake Last Oral intake: Last Oral Intake NPO since 23:00 11/25/23 07:20 Meds taken in AM with sips of Yes 11/25/23 07:20 water? Meds patient instructed to see med list 11/25/23 07:20 take am of surgery PONV PONV - military administrative technician: PONV - military administrative technician Female Yes 11/21/23 08:10 HX of Motion Sickness No 11/21/23 08:10 HX of N/V After Surgery No 11/21/23 08:10 Non-Smoker Yes 11/21/23 08:10 Duration of Surgery greater No 11/21/23 08:10 than 60 minutes Number of Risk Factors 2 11/21/23 08:10 PONV Score Moderate Risk 11/21/23 08:10 Height & Weight Height & Weight: Anesthesia: Height & Weight Height 5 ft 11/25/23 07:20 Weight: 80.5 kg 11/25/23 07:20 Body Mass Index (BMI) 34.6 11/25/23 07:20 Respiratory Assessment Respiratory Assessment - military administrative technician: Respiratory Tract Infection Hx - military administrative technician Hx Respiratory Tract Infection No 11/21/23 08:10 STOP Sleep Apnea STOP Sleep Apnea - military administrative technician: STOP Sleep Apnea - military administrative technician Hx Hypertension No 11/21/23 08:10 Hx Sleep Apnea No 11/21/23 08:10 CPAP BIPAP Do you snore loudly (louder No 11/21/23 08:10 than talking or can be heard Do you often feel tired/ No 11/21/23 08:10 fatigued/ sleepy during daytime? Has anyone observed you stop No 11/21/23 08:10 breathing during sleep? STOP Results Negative 11/21/23 08:10 QUESTION #5 FULL TEXT : Do you snore loudly (louder than talking or can be heard through closed doors)? Tobacco Use History Tobacco Use History - military administrative technician: Tobacco Use History - military administrative technician Tobacco Use Smoking Status Never smoker 11/21/23 08:10 Hx Tobacco Use No 11/21/23 08:10 Years Smoking Packs Smoked per Day Smoking Cessation Date was within the last 15 years Hx Smoking Cessation Date Hx Smoking Cessation Counseling Hematologic Medial History Hematologic Hx - military administrative technician: Hematologic Medical Hx - schedule manager Hx of Blood Transfusion No 11/21/23 08:10 Hx of Transfusion in last 3 No 11/21/23 08:10 Months Date of Last Transfusion (if within last 3 months) Ever experience any problems No 11/21/23 08:10 with transfusion(s)? Specify any problems Hx of Preganancy in last 3 No 11/21/23 08:10 Months Nurse Filling Out Transfusion DSCHRIBER 11/21/23 08:10 & Questions: Date: 11/21/23 11/21/23 08:10 Time: 08:12 11/21/23 08:10 Patient unable to answer at this time (ie. confused, unrespo /Reproduction History /Reproductive History - military administrative technician: /Reproductive Hx- military administrative technician Hx Now No 11/21/23 08:10 Gestational Age (in weeks): EDC: Hx Hx Para Hx Section SAB No 11/21/23 08:10 Active Medications Active Medications: Current Medications Generic Name Dose Route Start Last Admin Trade Name Freq PRN Reason Stop Dose Admin Lactated Ringer's 1,000 mls @ 15 mls/hr 11/25/23 07:30 06/25/24 07:26 IV 15 mls/hr .Q48H KATHERINE Administration Anesthesia Focused Assessment* Temperature: 97.8 F Pulse Rate: 61 Blood Pressure: 184/69 Respiratory Rate: 16 Pulse Ox: 100 Airway Assessment Mouth opens: >3 cm Mallampati Score: II Focused Labs Anesthesia Preop lab: CBC WBC 9.3 K/mm3 (4.4-11.0) 09/11/23 12:59 RBC 4.65 M/mm3 (4.2-5.4) 09/11/23 12:59 Hgb 13.2 g/dL (12.0-15.0) 09/11/23 12:59 Hct 41.8 % (37-47) 09/11/23 12:59 Plt Count 288 K/mm3 (150-450) 09/11/23 12:59 CHEMISTRY Potassium 4.0 mmol/L (3.5-5.1) 09/11/23 12:59 Sodium 138 mmol/L (136-145) 09/11/23 12:59 Magnesium 2.5 mg/dL (1.6-2.6) 08/19/23 12:00 Phosphorus 3.2 mg/dL (2.5-4.9) 04/17/21 23:59 BUN 21 mg/dL (7-18) H 09/11/23 12:59 Creatinine 1.09 mg/dL (0.55-1.02) H 09/11/23 12:59 Glucose 98 mg/dL (74-106) 09/11/23 12:59 POC Glucose 91 mg/dL (70-110) 12/22/19 09:07 TSH 1.37 uIU/mL (0.358-3.74) 09/11/23 12:59 COAG Review of Systems (Anesthesia) ROS Narrative System reviewed and no additional complaints, except as documented. [facility] Medical History Back pain History of hiatal hernia Gastric reflux Shortness of breath on exertion Cardiology follow-up encounter History of echocardiogram Difficult intravenous access UTI (urinary tract infection) Second degree AV block, Mobitz type II Presence of permanent cardiac pacemaker Wears glasses Post-menopausal Thyroid disease Arthritis Non-smoker History of edema Meniere disease Positive colorectal cancer screening using Cologuard test Home Medications ?Medication ?Instructions ?Recorded ?Last Taken ?Type levothyroxine 50 mcg tablet 50 mcg PO DAILY thyroid 12/09/19 11/25/23 History cholecalciferol (vitamin D3) 50 50 mcg PO DAILY 07/04/22 Unknown History mcg (2,000 unit) capsule (Vitamin D3) omeprazole 40 mg capsule,delayed See Rx Instructions .Route 09/17/23 11/24/23 23:00 Rx release .COMPLEX #90 caps loratadine 10 mg tablet 10 mg PO DAILY 11/21/23 Unknown History Allergy/AdvReac Type Severity Reaction Status Date / Time No Known Allergies Allergy Verified 11/25/23 07:27 Family History Mother Cancer Diabetes Heart disease Kidney disease Father Diabetes Heart disease CVA (cerebral vascular accident) Brother Diabetes Surgical History History of esophagogastroduodenoscopy (EGD) Hx of total knee arthroplasty Hx of total knee arthroplasty History of left knee surgery History of bilateral cataract extraction Social History Smoking Status: Never smoker alcohol intake: never substance use type: does not use
--- NOTE | 2023-11-25 07:49 | PCM.HP.BLA ---
History and Physical Date of Admission: 11/25/23 Visit Reasons: EGD Chief Complaint: EGD Accompanied by: Is patient in pain?: No Allergies No Known Allergies Allergy (Verified 10/14/23 14:08) Medications ?Medication ?Instructions ?Recorded ?Confirmed ?Type levothyroxine 50 mcg tablet 50 mcg PO DAILY thyroid 12/09/19 10/01/23 History cholecalciferol (vitamin D3) 50 50 mcg PO DAILY 07/04/22 10/01/23 History mcg (2,000 unit) capsule (Vitamin D3) omeprazole 40 mg capsule,delayed See Rx Instructions .Route 09/17/23 10/01/23 Rx release .COMPLEX #90 caps [facility] Medical History Second degree AV block, Mobitz type II Presence of permanent cardiac pacemaker Wears glasses Post-menopausal Cold sore Thyroid disease Arthritis Difficulty swallowing Heartburn Non-smoker History of edema Meniere disease Positive colorectal cancer screening using Cologuard test Surgical History Hx of total knee arthroplasty Hx of total knee arthroplasty History of left knee surgery History of bilateral cataract extraction Family History Mother Cancer Diabetes Heart disease Kidney diseaseFather Diabetes Heart disease CVA (cerebral vascular accident)Brother Diabetes Social History Smoking Status: Never smoker alcohol intake: never substance use type: does not use HPI HPI HPI: 78-year-old female. I had seen her previously in the office on July 23, 2023. This was in follow-up of July 05, 2022 when she had an upper endoscopy showing a large hiatal hernia and a 7 cm area of Carter's esophagus. Gastric metaplasia of the duodenum. Chronic gastritis. H. pylori is negative. The Carter's esophagus had focal ulceration and acute chronic inflammation. Colonoscopy done at that time showed hemorrhoids since severe sigmoid diverticulosis. Because of the extent of the inflammation on the upper endoscopy I had recommended a follow-up EGD at 1 year. She is maintained on omeprazole therapy 20 mg daily. She had been having some coughing spells. She also was having some syncopal spells. Any plans for repeat upper endoscopy will put on hold until her syncope could be evaluated. As noted she had a Holter monitor and then a pacemaker placed as noted below. The patient was recently hospitalized August 18 through August 21, 2023 for heart block. She had a pacemaker inserted. Additional problems at that time noted for hypothyroidism gastroesophageal reflux disease. She is on omeprazole 40 mg daily. She has a rehabilitation services physical therapy note as recent as October 09, 2023. That was for bilateral back pain. It was felt that was physical therapy she had made significant improvement. The patient complains of an incisional problem with eschar noted in the lateral aspect of the pacemaker incision. It is improving. She has now been released from cardiology care in that regard. She has not had any additional syncopal spells since placement of the pacemaker. ROS General General: No weight change, appetite, fatigue, colon cancer, breast cancer or weakness HEENT HEENT: Yes eye surgery; No difficulty swallowing, eye injury, swollen glands or hoarseness Endo Endocrine: Yes thyroid disease; No diabetes mellitus, thyroid cancer, Hair loss, heat intolerance or cold intolerance Skin Skin: No rash or changing moles Breast Breast: No left breast lump, right breast lump, nipple discharge, breast pain, abnormal mammogram, abnormal US or breast enlargement Musc Musculoskeletal: No back problems, arthritis, rheumatoid arthritis, gout or joint pain Cardio Cardiovascular: No murmur, pacemaker, heart disease, atrial fibrillation, high blood pressure, heart attack, heart stent, palpitations, shortness of breat with exertion or chest pain Psych Psychiatric: No depression, anxiety or hearing voices Resp Respiratory: No shortness of breath, No sleep apnea, No cough, No COPD, No asthma, No emphysema and No wheezing Gastro Gastrointestinal: No abdominal pain, No nausea or vomiting, No diarrhea, No constipation, No blood in stool, No acid reflux, No hemorrhoids, No ulcers, No gallbladder problem and No black,tarry stools Manpreet Hematologic: No blood thinners, No blood disorders, No bleeding, No anemia and No blood clots Neuro Neurologic: No system reviewed and no additional complaints, except as documented, No as per HPI, No abnormal gait, No abnormal hearing, No abnormal movements, No abnormal speech, No behavioral changes, No burning sensations, No confusion, No convulsions, No disequilibrium, No dizziness, No localized weakness, No frequent falls, No headache(s), No lack of coordination, No loss of vision, No memory loss, No numbness, No other visual disturbances, No radicular pain, No restless legs, No sensory deficit, No syncope, No tingling, No tremor(s), No weakness and No other Exam Const General: cooperative, healthy appearing, comfortable and no acute distress HENLA Head: normal to inspection Eyes General: appearance normal, both eyes and all related structures Resp Effort & Inspection: normal respiratory effort Auscultation: clear to auscultation bilaterally Cardio Rate: regular rate Rhythm: regular rhythm GI Inspection: normal to inspection Palpation: soft and no hepatosplenomegaly Musc Cervical Spine: normal cervical lordosis Skin General: no rashes or lesions noted Neuro General: patient alert, patient awake and patient oriented x3 Extrem General: no calf tenderness Psych Appearance: grossly normal Assessment and Plan Assessment and Plan (1) Hiatal hernia with GERD: Status: Acute (2) Barretts esophagus: Status: Acute Qualifiers: Carter's esophagus type: without dysplasia Qualified Code(s): K22.70 - Carter's esophagus without dysplasia Plan: I recommended the patient a esophagogastroduodenoscopy with possible biopsy or polypectomy as indicated. Careful follow-up of her Carter's would seem pertinent. Her quality of life is stabilized since placement of the pacemaker. We will schedule this approximately a month out. The patient demonstrated to me her pacemaker incision. She has an eschar located laterally. No gross discharge. I do believe that this could be facilitated with wound care I appreciate the ongoing opportunity of assisting with her surgical care Copy: Dr. Vamsi Peñaloza M.D., F.A.C.S I have examined the patient and the H&P has been reviewed. There are no clinical changes since date of exam. Sandip Peñaloza M.D., F.A.C.S.
--- NOTE | 2023-11-25 08:00 | EGD_PTH ---
PATIENT: TOÑO SALAS LOC: EN U#:[id number] AGE/SX: 78/F ROOM: RE11/25/[address]: Dr. Sandip Peñaloza MD : 1945 BED: DIS: 11/25/2023 SPEC #: [id number] RECD: 11/25/23 10:50 STATUS: JAMAAL RELuis #: [id number] JOI: 11/25/23 08:[address]: Sandip Peñaloza DEPT: SURGICAL PATHOLOGY RECD BY: Antonette Duran ENTERED: 11/25/23 12:06 SP TYPE: EGD BIOPSY OTHR DR: Dr. Vamsi Marrero MD Tissues: A - Gastric mucous membrane B - Gastric mucous membrane C - Esophagus, NOS D - Esophagus, NOS Procedures: Special Stain Group I Surgery Specimen Level IV Alcian Blue/PAS (control) HEADER OPERATION: EGD with biopsies PRE-OP DIAGNOSIS: Hiatal hernia with GERD, Carter's esophagus TISSUE SUBMITTED: A- Antrum , B- Cardia polyp biopsy, C- Distal esophagus, D- Mid esophageal polyp MICROSCOPIC DIAGNOSIS A. Antrum, biopsy: Mild gastritis. See microscopic description and comment. B. Cardia polyp, biopsy: Fragments of benign gastric mucosa. See comment. C. Distal esophagus, biopsy: Fragments of gastroesophageal mucosa with focal intestinal metaplasia (goblet cell metaplasia), consistent with Carter's esophagus. Chronic inflammation. Negative for dysplasia. See comment. D. Mid esophagus polyp, biopsy: A fragment of benign squamous epithelium with chronic inflammation. / 11/26/2023 COMMENT A. The results of immunohistochemistry for Helicobacter pylori will be reported separately ([id number]). B. Obvious polyp related changes are not seen. C. Immunohistochemistry ([id number]) for P53 and Ki-67 will be performed and results will be reported separately. Alcian blue/PAS stain with matched control is used in the evaluation of the specimen. MICROSCOPIC DESCRIPTION Slides are reviewed. A. The specimen shows fragments of gastric mucosa with chronic inflammatory cell infiltrates in the lamina propria consisting of lymphocytes and plasma cells, consistent with mild chronic gastritis. GROSS DESCRIPTION A. Received in fixative is one container labeled with the patient's name and designated Antrum biopsy. The specimen consists of one irregular fragment of light rowe soft tissue that measures 0.3 x 0.3 x 0.1 cm. The specimen is totally submitted in one cassette. B. Received in fixative is one container labeled with the patient's name and designated Cardia polyp biopsy. The specimen consists of two irregular fragments of light rowe soft tissue that measures 0.5 x 0.3 x 0.1 cm. The specimen is totally submitted in one cassette. C. Received in fixative is one container labeled with the patient's name and designated Distal esophagus biopsy. The specimen consists of multiple irregular fragments of light rowe soft tissue that in aggregate measure 2.5 x 0.5 x 0.1 cm. The specimen is totally submitted in one cassette. D. Received in fixative is one container labeled with the patient's name and designated Mid esophageal polyp biopsy. The specimen consists of one irregular fragment of light rowe soft tissue that measures 0.4 x 0.3 x 0.1 cm. The specimen is totally submitted in one cassette. OTONIEL/ 11/25/2023 TC:3 CPT:[id number]
--- NOTE | 2023-11-25 08:52 | PCM.POST.ANE ---
Anesthesia: Postop Eval I Current Vital Signs Temperature: 97 F Pulse Rate: 71 Blood Pressure: 99/77 Respiratory Rate: 16 Pulse Ox: 98 Oxygen Delivery Method: Room Air Assessment Airway patent: Yes Spontaneous unlabored respirations: Yes Mental status: Awake and Calm nausea: No Vomiting: No Anesthesia Complication: No Fluid Hydration Crystalloid volume administer (ml): 200 Total IV fluid infused: 200 Progress Note Anesthesia document: Postop Eval 1 completed: Yes
--- NOTE | 2023-11-25 08:54 | OP.EGD_ITS ---
Patient Name: Rosario Mejía Procedure Date: 11/25/2023 8:21 AM Date of : 1945 Age: 78 Procedure: Upper GI endoscopy Indications: Surveillance for malignancy due to personal history of Carter's esophagus Providers: Sandip Peñaloza MD Medicines: See the Anesthesia note for documentation of the administered medications Complications: No immediate complications. Procedure: Pre-Anesthesia Assessment: - Prior to the procedure, a History and Physical was performed, and patient medications and allergies were reviewed. The patient's tolerance of previous anesthesia was also reviewed. The risks and benefits of the procedure and the sedation options and risks were discussed with the patient. All questions were answered, and informed consent was obtained. Prior Anticoagulants: The patient has taken no anticoagulant or antiplatelet agents. ASA Grade Assessment: II - A patient with mild systemic disease. After reviewing the risks and benefits, the patient was deemed in satisfactory condition to undergo the procedure. After obtaining informed consent, the endoscope was passed under direct vision. Throughout the procedure, the patient's blood pressure, pulse, and oxygen saturations were monitored continuously. The Endoscope was introduced through the mouth, and advanced to the second part of duodenum. The upper GI endoscopy was accomplished without difficulty. The patient tolerated the procedure well. Scope In: 8:28:27 AM Scope Out: 8:46:37 AM Total Procedure Duration Time 0 hours 18 minutes 10 seconds Findings: Multiple polyps with no bleeding were found 18 cm from the incisors. The polyp was removed with a cold biopsy forceps. Resection and retrieval were complete. The Z-line was irregular and was found 34 cm from the incisors. A 6 cm hiatal hernia was present. There were esophageal mucosal changes secondary to established long-segment Carter's disease present in the lower third of the esophagus. The maximum longitudinal extent of these mucosal changes was 6 cm in length. Mucosa was biopsied with a cold forceps for histology. One specimen bottle was sent to pathology. A single 3 mm sessile polyp with no bleeding and no stigmata of recent bleeding was found in the cardia. The polyp was removed with a cold biopsy forceps. Resection and retrieval were complete. Diffuse mildly erythematous mucosa without bleeding was found in the gastric antrum. Biopsies were taken with a cold forceps for histology. The examined duodenum was normal. Impression: - Esophageal polyp(s) were found. Resected and retrieved. - Z-line irregular, 34 cm from the incisors. - 6 cm hiatal hernia. - Esophageal mucosal changes secondary to established long-segment Carter's disease. Biopsied. - A single gastric polyp. Resected and retrieved. - Erythematous mucosa in the antrum. Biopsied. - Normal examined duodenum. Recommendation: - Discharge patient to home. - Resume previous diet. - Continue present medications. - Telephone my office for pathology results in 1 week. - Repeat upper endoscopy in 3 years for surveillance. Procedure Code(s): --- Professional --- 88145, Esophagogastroduodenoscopy, flexible, transoral; with biopsy, single or multiple Diagnosis Code(s): --- Professional --- K22.81, Esophageal polyp K22.89, Other specified disease of esophagus K44.9, Diaphragmatic hernia without obstruction or gangrene K22.70, Carter's esophagus without dysplasia K31.7, Polyp of stomach and duodenum K31.89, Other diseases of stomach and duodenum CPT copyright 2021 [employer]. All rights reserved. The codes documented in this report are preliminary and upon portable sawmill operator review may be revised to meet current compliance requirements. Sandip Peñaloza MD 11/25/2023 8:53:34 AM This report has been signed electronically. Number of Addenda: 0 Note Initiated On: 11/25/2023 8:21 AM
--- NOTE | 2023-11-25 08:54 | OP.CCLET_ITS ---
11/25/2023 Vamsi Marrero [address] [place] [address] Re : Upper GI endoscopy procedure for Rosario Mejía Dear Dr. Marrero This procedure was performed on Saturday, November 25, 2023. My impressions and recommendations are as follows: Impressions : - Esophageal polyp(s) were found. Resected and retrieved. - Z-line irregular, 34 cm from the incisors. - 6 cm hiatal hernia. - Esophageal mucosal changes secondary to established long-segment Carter's disease. Biopsied. - A single gastric polyp. Resected and retrieved. - Erythematous mucosa in the antrum. Biopsied. - Normal examined duodenum. Recommendations : - Discharge patient to home. - Resume previous diet. - Continue present medications. - Telephone my office for pathology results in 1 week. - Repeat upper endoscopy in 3 years for surveillance. My findings are described in the full procedure note, which is enclosed. If I can be of further assistance, please feel free to contact me at Doctor phone number(s): Work: . Sincerely, Sandip Peñaloza MD 11/25/2023 8:53:34 AM This report has been signed electronically.
--- NOTE | 2023-11-25 13:00 | PCM.POSTANE2 ---
Anesthesia Postop Eval I Sum Postop Eval Completion status Anesthesia document: Postop Eval 1 completed: Yes Anesthesia Postop Eval I Summary Anesthesia Postop Eval I Summary: Anesthesia Postop Eval I: Assessment Summary Airway patent Yes 11/25/23 08:56 [email or web address] Spontaneous unlabored Yes 11/25/23 08:56 [email or web address] respirations Mental status Awake,Calm 11/25/23 08:56 [email or web address] nausea No 11/25/23 08:56 [email or web address] Vomiting No 11/25/23 08:56 [email or web address] Anesthesia Postop Eval I: Fluid Summary Crystalloid volume administer 200 11/25/23 08:56 [email or web address] (ml) Colloids volume administered ( ml) Blood Product volume administered (ml) Total IV fluid infused 200 11/25/23 08:56 [email or web address] Anesthesia Postop Eval I: Summary Notes Anesthesia Complication No 11/25/23 08:56 [email or web address] Anesthesia Complication Comment: Post-operative progress note Anesthesia: Postop Eval II Evaluation Mental status: Awake and Calm Pain Level: 0 nausea: No Vomiting: No Complications Anesthesia Complication: No
== END 2023-11-25 09:49 | disposition home or self-care (01) ==
LOC: EN 07:37 → AC 07:37
PROVIDERS: PCP Family Medicine; Referring Provider Family Medicine; Visit Provider Surgery
PROC: 0DJ08ZZ Inspection of Upper Intestinal Tract, Via Natural or Artificial Opening Endoscopic (ICD-10-PCS; CPT 43235; principal; 2023-11-25 07:55)
DX: K44.9 Diaphragmatic hernia without obstruction or gangrene (principal); Z95.0 Presence of cardiac pacemaker; K22.81 Esophageal polyp; K31.7 Polyp of stomach and duodenum; K29.50 Unspecified chronic gastritis without bleeding; K22.70 Barrett's esophagus without dysplasia; Z96.659 Presence of unspecified artificial knee joint; Z98.41 Cataract extraction status, right eye; Z98.42 Cataract extraction status, left eye; E03.9 Hypothyroidism, unspecified; K21.9 Gastro-esophageal reflux disease without esophagitis; Z79.899 Other long term (current) drug therapy; K22.89 Other specified disease of esophagus; K31.89 Other diseases of stomach and duodenum
CPT/HCPCS: 43239; 88305; 88312; 88341; 88342; J7120; J2405

== ENCOUNTER → 2024-03-19 | Outpatient (CLI) | payer MEDICARE, SELFPAY ==
[2024-03-19 11:01] LABS: Microalbumin:Creatinine Ratio 15.6 mg/g CRE (<30 mg/g CRE)
[2024-03-19 11:49] LABS: ALB/GLOB Ratio 0.8 RATIO (0.9-2.4); AST(SGOT) 19 U/L (15-37); Alanine Aminotransfer ALT/SGPT 16 U/L (13-56); Albumin, Serum 3.4 g/dL (3.2-5.0); Alkaline Phosphatase 57 U/L (45-117); Anion Gap 6 (5-15); BUN 20 mg/dL (7-18); BUN/Creat Ratio 19.6 RATIO (10-20); Calcium,Total 9.6 mg/dL (8.5-10.1); Chloride 108 mmol/L (98-107); Creatinine, Serum 1.02 mg/dL (0.55-1.02); EST Glomerular Filtration Rate 55 mL/min (>60); Est Glom Filt Rate - Afr Amer 67 mL/min (>60); Glucose 98 mg/dL (74-106); Potassium 4.1 mmol/L (3.5-5.1); Protein, Total 7.4 g/dL (6.4-8.2); Sodium Level 137 mmol/L (136-145)
== END | disposition home or self-care (01) ==
LOC: MFPLAB 08:11
PROVIDERS: PCP Family Medicine; Visit Provider Family Medicine
DX: I10 Essential (primary) hypertension (principal)
CPT/HCPCS: 36415; 80053; 82043; 82570

== ENCOUNTER → 2024-09-27 | Outpatient (CLI) | payer MEDICARE, SELFPAY ==
[2024-09-27 10:55] LABS: Absolute Lymphocyte Count 1.58 X10^3/uL (0.83-4.51); Absolute Neutrophil Count 3.7 X10^3/uL (2.0-7.7); Basophil# 0.03 X10^3/uL; Basophil% 0.5 % (0-1); Eosinophil# 0.11 X10^3/uL; Eosinophils% 1.9 % (0-5); Hemoglobin 13.3 g/dL (12.0-15.0); Lymphocyte # 1.58 X10^3/ul (0.83-4.51); Lymphocyte % 26.7 % (19-41); Mean Corp Hgb Conc 31.7 g/dL (32-36); Mean Corpuscular Hgb 28.2 pg (27.0-32.0); Mean Platelet Vol. 10.4 fl (6.2-12.0); Monocyte# 0.45 X10^3/uL; Monocyte% 7.6 % (0-10); NRBC Flagged by Analyzer 0 % (0-5); Neutrophil # 3.73 X10^3/uL (2.7-7.7); Platelet Count 234 K/mm3 (150-450); RBC Distribution Width CV 15.5 % (11.6-14.6); RBC Distribution Width SD 50.8 fl (35.1-43.9); Red Blood Count 4.72 M/mm3 (4.2-5.4); White Blood Count 5.9 K/mm3 (4.4-11.0)
[2024-09-27 11:25] LABS: Microalbumin,Random Urine 13.3 mg/L (NO RANGE EST.); Microalbumin:Creatinine Ratio 237.5 mg/g CRE
[2024-09-27 11:47] LABS: ALB/GLOB Ratio 1.1 RATIO (0.9-2.4); AST(SGOT) 24 U/L (<=31); Alanine Aminotransfer ALT/SGPT 11 U/L (<=34); Albumin, Serum 4.1 g/dL (3.4-4.8); Alkaline Phosphatase 64 U/L (35-104); Anion Gap 14 (5-15); BUN 18 mg/dL (4-19); BUN/Creat Ratio 17.6 RATIO (10-20); Calcium,Total 9.7 mg/dL (7.6-11.0); Carbon Dioxide 19.8 mmol/L (21.0-32.0); Chloride 106 mmol/L (98-108); Cholesterol 215 mg/dL (<=200); Creatinine, Serum 1.03 mg/dL (0.70-1.20); EST Glomerular Filtration Rate 55 (>60); Globulin 3.6 g/dL (2.2-4.2); Glucose 88 mg/dL (70-99); High Density Lipoprotein 82 mg/dL; Low Density Lipoprotein Calc. 119 mg/dL; Potassium 4.7 mmol/L (3.3-5.1); Protein, Total 7.7 g/dL (5.9-8.4); Sodium Level 140 mmol/L (133-145); Total Bilirubin 0.49 mg/dL (0.00-1.30); Triglycerides 71 mg/dL; Very Low Density Lipoprotein 14 mg/dL (5-40); cholesterol:hdl ratio screen 2.63
== END | disposition home or self-care (01) ==
LOC: MFPLAB 08:12
PROVIDERS: PCP Family Medicine; Referring Provider Family Medicine; Visit Provider Family Medicine
DX: E03.9 Hypothyroidism, unspecified (principal); N18.31 Chronic kidney disease, stage 3a; I12.9 Hypertensive chronic kidney disease with stage 1 through stage 4 chronic kidney disease, or unspecified chronic kidney disease
CPT/HCPCS: 36415; 80053; 80061; 82043; 82570; 84443; 85025

== ENCOUNTER → 2024-10-07 | Outpatient (CLI) | payer MEDICARE, SELFPAY ==
--- NOTE | 2024-10-07 07:19 | BI_ITS ---
EXAM: SCRN MAMM (CAD)W/JT BILAT DATE: 10/07/2024 CLINICAL HISTORY: F, Age 79 y/o , SCREENING BREAST CANCER RISK ASSESSMENT: Not reported TECHNIQUE: Bilateral screening digital breast tomosynthesis with 2D and 3D images. Computer aided detection. COMPARISON: Prior exam(s) were compared FINDINGS: TISSUE DENSITY: The breast tissue is heterogenously dense, which may obscure small masses. Bilateral Breast Mammographic Findings: No suspicious masses, calcifications or other abnormalities are identified. BI/SCRN MAMM (CAD)W/JT BILAT IMPRESSION: OVERALL FINAL ASSESSMENT: BIRADS 1 NEGATIVE RECOMMENDATION: Routine annual follow-up in 1 Year A letter with findings and recommendations will be mailed to the patient. Reading Location: [id number]
== END | disposition home or self-care (01) ==
LOC: OPBI 07:16
PROVIDERS: PCP Family Medicine; Referring Provider Family Medicine; Visit Provider Family Medicine
DX: Z12.31 Encounter for screening mammogram for malignant neoplasm of breast (principal)
CPT/HCPCS: 77063; 77067

== ENCOUNTER → 2025-04-18 | Outpatient (CLI) | payer MEDICARE, SELFPAY ==
[2025-04-18 10:28] LABS: Hematocrit 41.6 % (37-47); Hemoglobin 13.1 g/dL (12.0-15.0); Immature Granulocytes Count 0.020 X10^3/uL (0.0-0.0); Mean Corp Hgb Conc 31.5 g/dL (32-36); Mean Corpuscular Volume 90.0 fL (81-99); Mean Platelet Vol. 10.2 fl (6.2-12.0); NRBC Flagged by Analyzer 0 % (0-5); Platelet Count 251 K/mm3 (150-450); RBC Distribution Width CV 14.9 % (11.6-14.6); RBC Distribution Width SD 49.1 fl (35.1-43.9); Red Blood Count 4.62 M/mm3 (4.2-5.4); White Blood Count 5.8 K/mm3 (4.4-11.0)
[2025-04-18 11:05] LABS: AST(SGOT) 21 U/L (<=31); Alanine Aminotransfer ALT/SGPT 8 U/L (<=34); Albumin, Serum 4.1 g/dL (3.4-4.8); Alkaline Phosphatase 56 U/L (35-104); Anion Gap 11 (5-15); BUN 21 mg/dL (4-19); BUN/Creat Ratio 19.6 RATIO (10-20); Calcium,Total 10.0 mg/dL (7.6-11.0); Carbon Dioxide 25.1 mmol/L (21.0-32.0); Chloride 104 mmol/L (98-108); Globulin 3.4 g/dL (2.2-4.2); Glucose 95 mg/dL (70-99); Potassium 4.1 mmol/L (3.3-5.1)
== END | disposition home or self-care (01) ==
LOC: MFPLAB 08:07
PROVIDERS: PCP Family Medicine; Referring Provider Family Medicine; Visit Provider Family Medicine
DX: K22.70 Barrett's esophagus without dysplasia (principal); K20.90 Esophagitis, unspecified without bleeding
CPT/HCPCS: 36415; 80053; 85025

== ENCOUNTER → 2025-04-27 | Outpatient (CLI) | payer MEDICARE, SELFPAY ==
--- NOTE | 2025-04-27 16:01 | BD_ITS ---
PROCEDURE: DEXA BONE DENSITY STUDY 04/27/2025 REASON FOR EXAM: F, age 79 y/o . Patient is postmenopausal TECHNIQUE: Procedure Code: BDDBD Modality: DX Procedure: DEXA BONE DENSITY STUDY COMPARISON: DEXA examination dated 05/22/2021 FINDINGS: BMD and T-SCORES Lumbar spine: 1.081 g/cm2, T-score 0.3 Levels: L1 through L4 Left femoral neck: 0.770 g/cm2, T-score -0.7 Left total hip: 0.945 g/cm2, T-score 0 Change from prior: There has been a significant decrease in the bone mineral density of the left hip by 8.6% since the prior study dated 05/22/2021. Right femoral neck: 0.744 g/cm2, T-score -0.9 Right total hip: 0.915 g/cm2, T-score -0.2 Change from prior: There has been a significant decrease in the bone mineral density of the right hip by 7.9% since the prior study dated 05/22/2021. The World Health Organization has defined the following categories based on bone density: Normal bone density: T-score equal to or greater than -1.0 Osteopenia: T-score between -1.0 and -2.5 Osteoporosis: T-score equal to or less than -2.5 FRAX (or Comparable) Fracture Risk Assessment: 10 Year Probability of Fracture: Major Osteoporotic Fracture: 15% Hip Fracture: 2.6% (Note: FRAX is not to be reported in setting of normal range bone density, osteoporosis on DEXA, known history of osteoporosis, prior osteoporotic hip or vertebral fracture, or for any patient undergoing pharmacological treatment for bone loss.) The National Osteoporosis Foundation (NOF) recommends pharmacological treatment for patients with a FRAX 10-year risk of 3% or higher for a hip fracture, or 20% or higher for a major osteoporotic fracture, to prevent osteoporosis and reduce fracture risk. The patient does not meet the pharmacological treatment recommendations for prevention of osteoporosis. BD/Dexa Bone Density Study IMPRESSION: NORMAL T-SCORES. Recommend follow-up as clinically warranted. Reading Location: [id number]
== END | disposition home or self-care (01) ==
LOC: OPBD 15:58
PROVIDERS: PCP Family Medicine; Referring Provider Family Medicine; Visit Provider Family Medicine
DX: Z78.0 Asymptomatic menopausal state (principal); N95.9 Unspecified menopausal and perimenopausal disorder
CPT/HCPCS: 77080